=== PATIENT | female | born 1935 | race Caucasian/White ===

== ENCOUNTER 2022-08-22 14:55 | Emergency (ER) | payer OTHER ==
--- OUTSIDE RECORDS SUMMARY | 2022-08-22 14:59 | XMS REPORT | Continuity of Care Document ---
:1935 Author Organization [facility] t Address [address] [place] [address] Care Team Providers Name Role Phone DR MARYURI CHATTERJEE Primary Care Physician Unavailable Lindsay Seaman Attending Clinician Unavailable HARLEY MONTANO Attending Clinician Unavailable ADAM YUAN Attending Clinician Unavailable JOAQUINA GATICA Attending Clinician Unavailable Jamari Fraire Attending Clinician Unavailable Sahil Deleon Attending Clinician Unavailable DAVID HUFF Attending Clinician Unavailable [place] Attending Clinician Unavailable Lindsay Seaman Admitting Clinician Unavailable REYNALDO ELLER Admitting Clinician Unavailable Physician, No Primary or Family Admitting Clinician UnavailDAVID Dyer Admitting Clinician Unavailable Johnny Ruiz PA-C Admitting Clinician Unavailable Payers Payer Name Policy Type Policy Number Effective Date Expiration Date S aurora [id number] 1959 00:00:00 Problems Condition Condition Condition Status Onset Resolution Last Treating Co mments Source Name Details Category Date Date Treatment Clinician Date Acute Acute Diagnosis Active 2020-[address] [facility] Confusion Confusion 0-25 Luke s 00:00: Memoria 00 l (LUF/LI V/SA) Allergies, Adverse Reactions, Alerts Allergy Allergy Status Severity Reaction(s) Onset Inactive Treating Comm ents Source Name Type Date Date Clinician No Known DA Active U 2020-11 [facility] 2[facility]13 [facility] s 00:00: d 00 [facility] No Known DA Active U 2019- [facility] [place] [facility] No Known DA Active U 2019- [facility] 0[facility] [place] [facility] 00:[facility] Sulfa DA Active [place] 2009- [facility] (Sulfona 0-19 [facility] mide 00:00: d Antibiot 00 Medical ics) Center Sulfa DA Active [place] 2009-11 [facility] (Sulfona 0-19 [facility] mide 00:00: d Antibiot 00 Medical ics) Center CELEBREX DA Active U 2001-0 [facility] 5- [place] [facility] d [facility] IVP DYE DA Active U 2001-0 [facility]- [place] [facility]: d [facility] No Known DA Active U 2001-0 [facility] Food 5- [facility] Allergie 00:00: d s 00 Medical Center No Known DA Active U 2001-0 [facility] Other 5- [facility] Allergie 00:00: d s 00 Medical Center VIOXX DA Active U 2001-0 [facility] 5-21 [facility] 00:00: d 00 Medical Center Social History Social Habit Start Date Stop Date Quantity Comments Source Sex Assigned At [birth year] [facility] 00:00:00 00:00:00 Smoking Status Start Date Stop Date Source Tobacco smoking consumption [facility] unknown Former smoker [facility] Medications This patient has no known medications. Immunizations Ordered Immunization Filled Immunization Date Status Commen ts Source Name Name PFIZER COVID-19 MRNA 2021-01-17 Completed Meth odist VACCINATION 00:00:00 Hospital PFIZER COVID-19 MRNA 2020-12-24 Completed Meth odist VACCINATION 00:00:00 Hospital Vital Signs Vital Name Observation Time Observation Value Comments Source Height 2021-09-18 17:38:00 175.26 CM Weight 2021-09-18 17:38:00 61.23 KG BP Systolic 2021-09-18 17:38:00 161 mm[Hg] [facility] (LUF/NICK/SA) BP Diastolic 2021-09-18 17:38:00 91 mm[Hg] [facility] (LUF/NICK/SA) Height 2021-09-18 17:38:00 69 [in_i] [facility] (LUF/NICK/SA) Weight 2021-09-18 17:38:00 135 [lb_av] [facility] (LUF/NICK/SA) BMI (Body Mass Index) 2021-09-18 17:38:00 19.9 kg/m2 [facility] (LUF/NICK/SA) Body Temperature 2021-09-18 17:38:00 98.2 [degF] [facility] (LUF/NICK/SA) Pulse Rate 2021-09-18 17:38:00 97 /min [facility] (F/NICK/SA) Respiratory Rate 2021-09-18 17:38:00 20 /min [facility] (F/NICK/SA) O2% BldC Oximetry 2021-09-18 17:38:00 95 % [facility] (F/NICK/SA) Procedures Procedure Date / Time Performed Performing Clinician [facility] danyell [id number] 2020-08-28 00:00:00 JAIRO [facility] Plan of Care Planned Activity Planned Date Details Comments Source Future Scheduled 2022-08-13 INFLUENZA VACCINE [facility] Test 02:31:10 [code = INFLUENZA VACCINE] Future Scheduled 2022-08-13 HEPATITIS B VACCINES Met [facility] Test 02:31:10 (1 of 3 - 3-dose series) [code = HEPATITIS B VACCINES (1 of 3 - 3-dose series)] Future Scheduled 2022-08-13 SHINGLES VACCINES (1 Met [facility] Test 02:31:10 of 2) [code = SHINGLES VACCINES (1 of 2)] Future Scheduled 2022-08-13 65+ [facility]10 VACCINE (1 - PCV) [code = 65+ PNEUMOCOCCAL VACCINE (1 - PCV)] Future Scheduled 2022-08-13 COVID-19 VACCINE (3 - [facility] Test 02:31:10 Booster for Pfizer series) [code = COVID-19 VACCINE (3 - Booster for Pfizer series)] Encounters Start End Encounter Admission Attending Care Care Encounter Source Date/Time Date/Time Type Type Clinicians Facility Department ID 2020-08-28 Inpatient EM MEET Seaman [id number] [facility] 00:56:00 Lindsay 66 [facility] 2022-02-22 2022-03-02 Inpatient E HARLEY MONTANO TW MED [id number] T 19:34:00 17:20:00 2022-02-22 2022-02-22 Emergency E LISSY, MHNE MHNE 7501 MHNE 15:04:00 17:27:00 ADAM 2022-01-03 2022-02-01 Outpatient GAVI, MHNE MHNE [id number] MHNE 14:10:00 23:59:00 JOAQUINA 2021-11-29 2021-12-28 Outpatient GAVI, MHNE MHNE 9401 MHNE 10:56:00 23:59:00 [facility] 2021-11-21 2021-11-24 Outpatient GAVI, MHNE MHNE 9400 MHNE 09:28:00 18:00:00 [facility] 2021-11-08 2021-11-08 Emergency EM Yee, HCAKW LAUREN [id number] [facility] 17:28:00 19:27:[address] 2021-11-08 2021-11-08 Emergency EM Yee, HCAKW LAUREN [id number] [facility] 17:28:00 19:27:[address] 2021-11-06 2021-11-06 Emergency EM Pancho, Sahil [facility] [id number] [facility] 13:10:00 19:00:[address] [facility] 2021-11-06 2021-11-06 Emergency EM Pancho, Sahil [facility] [id number] [facility] 13:10:00 19:00:[address] [facility] 2021-09-18 2021-09-18 [facility]A 1 [facility] [id number] 17:37:00 18:56:00 MALCOLMON Demetra marc (BRITTA/STACIE V/SA) 2021-09-18 2021-09-18 Inpatient [facility] [id number] 00:00:00 00:00:00 [facility] [id number] Demetra Beard, [address] [id number] [place], (LUF[place] [address] 2021-09-18 2021-09-18 Inpatient [facility] [id number] [facility] St 00:00:00 00:00:00 SHUBHAM FRANKLIN [id number] Demetra N, 1717 [id number] [address] 9cbb58 [address] [place], (LUF[place] [address] 2021-09-18 2021-09-18 Inpatient [facility] [id number] [facility] 00:[facility]:00 00:00:00 SHUBHAM FRANKLIN [id number]- a Demetra N, [address] [id number] [address] f02bb[address] [place], (LUF[place] [address] 2021-01-17 2021-01-17 Outpatient [facility] [id number] [place] 00:00:00 00:00:[address] 2020-12-24 2020-12-24 Outpatient [facility] [id number] [place] 00:00:00 00:00:[address] 2020-10-14 2020-10-14 Outpatient EMILY Ochoa MEET RADI [id number] [facility] 11:15:00 11:15:[address] [facility] Results Test Description Test Time Test Comments Results Result Sour e Comments - XR WRIST 2 VIEWS 2021-11-06 RT 17:39:00 [facility] : 1935 Sex: F FAX: Nikki Perez MD [phone] [place]: St: REG Name: VANESSA VILLEGAS : 1935 Age/S: 86/F [address] Unit #: [id number] Loc: [place] [address] Phys: Nikki Perez MD Acct: [id number] Dis Date: Status: REG ER PHONE #: [phone] Exam Date: 11/06/20211729 FAX #: [phone] Reason: POST REDUCTION EXAMS: CPT CODE: [id number] XR WRIST [address] [place] [address] Location: A1 EXAM: - XR WRIST 2 VIEWS RT INDICATION: POST REDUCTION COMPARISON: Wrist radiograph dated the same day TECHNIQUE: 2 views of the right wrist FINDINGS: Slight interval improvement in alignment of an angulated, comminuted, and displaced fracture of the distal radius status post closed reduction, with some mild persistent angulation and displacement. Unchanged ulnar styloid process fracture. No distinctly new acute fracture. There is soft tissue swelling of the wrist. IMPRESSION: Slight interval improvement in alignment. at 1739 Reported and signed by: Bakari Saucedo MD CC: Nikki Perez MD Technologist: Bonnie Caal Date/Time/By: 11/06/2021 (1790) : By: [email or web address] PAGE 1 Signed Report FAX: Nikki Perez MD [phone] [place]: St: REG Name: VANESSA VILLEGAS : 1935 Age/S: 86/F [address] Unit #: [id number] Loc: [place] [address] Phys: Nikki Perez MD Acct: [id number] Dis Date: Status: REG ER PHONE #: [phone] Exam Date: 11/06/2021 1730 FAX #: [phone] Reason: POST REDUCTION EXAMS: CPT CODE: [id number] XR WRIST [address] [place] [address] <Continued> Orig Print D/T: S: 11/06/2021 (3422) PAGE 2 Signed Report - XR WRIST 2 VIEWS 2021-11-06 RT 17:39:00 [facility] : 1935 Sex: F FAX: Nikki Perez MD [phone] [place]: St: NICK Name: VANESSA VILLEGAS : 1935 Age/S: 86/F [address] Unit #: [id number] Loc: [place] [address] Phys: Nikki Perez MD Acct: [id number] Dis Date: Status: DEP ER PHONE #: [phone] Exam Date: 11/06/20211729 FAX #: [phone] Reason: POST REDUCTION EXAMS: CPT CODE: [id number] XR WRIST [address] [place] [address] Location: A1 EXAM: - XR WRIST 2 VIEWS RT INDICATION: POST REDUCTION COMPARISON: Wrist radiograph dated the same day TECHNIQUE: 2 views of the right wrist FINDINGS: Slight interval improvement in alignment of an angulated, comminuted, and displaced fracture of the distal radius status post closed reduction, with some mild persistent angulation and displacement. Unchanged ulnar styloid process fracture. No distinctly new acute fracture. There is soft tissue swelling of the wrist. IMPRESSION: Slight interval improvement in alignment. at 5390 Reported and signed by: Bakari Saucedo MD CC: Nikki Perez MD Technologist: Bonnie Corbettmdchris Date/Time/By: 11/06/2021 (1621) : By: [email or web address] PAGE 1 Signed Report FAX: Nikki Perez MD [phone] [place]: St: DEP Name: VANESSA VILLEGAS [facility] : 1935 Age/S: 86/F [address] Unit #: [id number] Loc: [place] [address] Phys: Nikki Perez MD Acct: [id number] Dis Date: Status: [facility] ER PHONE #: [phone] Exam Date: 11/06/20211729 FAX #: [phone] Reason: POST REDUCTION EXAMS: CPT CODE: [id number] XR WRIST [address] [place] [address] (Continued) Orig Print D/T: S: 11/06/2021 (8909) PAGE 2 Signed Report - XR HIP BI 2021-11-06 W/PELVIS 15:33:00 [facility] : 1935 Sex: F FAX: Nikki Perez MD [phone] [place]: St: PRE FAX: Grey Mandel DO Name: VANESSA VILLEGAS [facility] : 1935 Age/S: 86/F [address] Unit #: [id number] Loc: [place] [address] Phys: MinisterioGrey R2 Acct: [id number] Dis Date: Status: PRE ER PHONE #: [phone] Exam Date: 11/06/2021 1459 FAX #: [phone] Reason: fall/head stiek/ neck pain/pain pain/hip pain/ EXAMS: CPT CODE: [id number] XR HIP BI W/PELVIS 87900 EXAM: - XR HIP BI W/PELVIS HISTORY: fall/head/neck pain/pain pain/hip pain/ knee pain COMPARISON: None available time of interpretation. FINDINGS: AP and frog-leg lateral views of both hips and single view of the pelvis are provided. Intact right hip hemiarthroplasty. No significant degenerative changes of the left hip joint. No acute fracture. IMPRESSION: No acute findings. at 1533 Reported and signed by: oTny Ashraf MD CC: Nikki Perez MD; Grey Mandel DO Technologist: Bonnie Caal Date/Time/By: 11/06/2021 (1373) : By: [email or web address] PAGE 1 Signed Report FAX: Nikki Perez MD [phone] [place]: St: PRE FAX: Grey Mandel DO Name: VANESSA VILLEGAS [facility] : 1935 Age/S: 86/F [address] Unit #: [id number] Loc: [place] [address] Phys: Grey Mandel Acct: [id number] Dis Date: Status: PRE ER PHONE #: [phone] Exam Date: 11/06/2021 1459 FAX #: [phone] Reason: fall/head stiek/ neck pain/pain pain/hip pain/ EXAMS: CPT CODE: [id number] XR HIP BI W/PELVIS 24385 <Continued> Orig Print D/T: S: 11/06/2021 (4944) PAGE 2 Signed Report - XR HIP BI 2021-11-06 W/PELVIS 15:33:00 [facility]AS : 1935 Sex: F FAX: Nikki Perez MD [phone] [place]: [facility]: [facility] FAX: Grey Mandel DO Name: VANESSA VILLEGAS : 1935 Age/S: 86/F [address] Unit #: [id number] Loc: [place] [address] Phys: Grey Mandel DO Acct: [id number] Dis Date: Status: DEP ER PHONE #: [phone] Exam Date: 11/06/2021 1454 FAX #: [phone] Reason: fall/head stiek/ neck pain/pain pain/hip pain/ EXAMS: CPT CODE: [id number] XR HIP BI W/PELVIS 54176 EXAM: - XR HIP BI W/PELVIS HISTORY: fall/head/neck pain/pain pain/hip pain/ knee pain COMPARISON: None available time of interpretation. FINDINGS: AP and frog-leg lateral views of both hips and single view of the pelvis are provided. Intact right hip hemiarthroplasty. No significant degenerative changes of the left hip joint. No acute fracture. IMPRESSION: No acute findings. at 1533 Reported and signed by: Tony Ashraf MD CC: Nikki Perez MD; Grey Mandel DO Technologist: Bonnie Caal Date/Time/By: 11/06/2021 (1533) : By: [email or web address] PAGE 1 Signed Report FAX: Nikki Perez MD [phone] [place]: [facility]: [facility] FAX: Grey Mandel DO Name: VANESSA VILLEGAS : 1935 Age/S: 86/F [address] Unit #: [id number] Loc: [place] [address] Phys: Grey Mandel DO R2 Acct: [id number] Dis Date: Status: DEP ER PHONE #: [phone] Exam Date: 11/06/2021 1459 FAX #: [phone] Reason: fall/head stiek/ neck pain/pain pain/hip pain/ EXAMS: CPT CODE: [id number] XR HIP BI W/PELVIS 26630 (Continued) Orig Print D/T: S: 11/06/2021 (1536) PAGE 2 Signed Report - XR HAND 3 + V RT 2021-11-06 15:31:00 [facility] : 1935 Sex: F FAX: Nikki Perez MD [phone] [place]: St: PRE FAX: Grey Mandel DO Name: VANESSA VILLEGAS : 1935 Age/S: 86/F [address] Unit #: [id number] Loc: [place] [address] Phys: Grey Mandel Acct: [id number] Dis Date: Status: PRE ER PHONE #: [phone] Exam Date: 11/06/20211458 FAX #: [phone] Reason: fall/head stiek/ neck pain/pain pain/hip pain/ EXAMS: CPT CODE: [id number] XR HAND 3 + V RT [address]397 EXAM: - XR WRIST 3 + V RT, - XR FOREARM 2 VIEWS RT, - XR HAND 3 + V RT HISTORY: fall/head/neck pain/pain pain/hip pain/ knee pain COMPARISON: None available time of interpretation. FINDINGS: Frontal, oblique, and lateral views of the right wrist and hand are provided. 2 views of the right forearm. Comminuted, intra-articular displaced fracture of the distal radius. Soft tissue swelling surrounds the fracture site. IMPRESSION: Distal radial fracture as above. at 1531 Reported and signed by: Tony Ashraf MD CC: Nikki Perez MD; [facility] Technologist: Bonnie Zamora Trnscrd Date/Time/By: 11/06/2021 (1531) : By: [email or web address] PAGE 1 Signed Report FAX: Nikki Perez MD [phone] [place]: St: PRE FAX: Grey Mandel DO Name: [place]SA [place]LEGASwood : 1935 Age/S: 86/F [address] Unit #: [id number] Loc: [place] [address] Phys: Grey Mandel Acct: [id number] Dis Date: Status: PRE ER PHONE #: [phone] Exam Date: 11/06/2021 145 FAX #: [phone] Reason: fall/head stiek/ neck pain/pain pain/hip pain/ EXAMS: CPT CODE: [id number] XR HAND 3 + V RT 279[address] <Continued> Orig Print D/T: S: 11/06/2021 (2521) PAGE 2 Signed Report - XR FOREARM 2 2021-11-06 VIEWS RT 15:31:00 [facility] : 1935 Sex: F FAX: Nikki Perez MD [phone] [place]: St: PRE FAX: Grey Mandel DO Name: VANESSA VILLEGAS [facility] : 1935 Age/S: 86/F [address] Unit #: [id number] Loc: [place] [address] Phys: Grey Mandel DO R2 Acct: [id number] Dis Date: Status: PRE ER PHONE #: [phone] Exam Date: 11/06/2021 1459 FAX #: [phone] Reason: fall/head stiek/ neck pain/pain pain/hip pain/ EXAMS: CPT CODE: [id number] XR FOREARM [address] [place] [address] EXAM: - XR WRIST 3 + V RT, - XR FOREARM 2 VIEWS RT, - XR HAND 3 + V RT HISTORY: fall/head/neck pain/pain pain/hip pain/ knee pain COMPARISON: None available time of interpretation. FINDINGS: Frontal, oblique, and lateral views of the right wrist and hand are provided. 2 views of the right forearm. Comminuted, intra-articular displaced fracture of the distal radius. Soft tissue swelling surrounds the fracture site. IMPRESSION: Distal radial fracture as above. at 1531 Reported and signed by: Tony Ashraf MD CC: Nikki Perez MD; Grey Mandel DO Technologist: Bonnie Zamora Trnmdrd Date/Time/By: 11/06/2021 (1530) : By: [email or web address] PAGE 1 Signed Report FAX: Nikki Perez MD [phone] [place]: St: PRE FAX: Grey Mandel DO Name: VANESSA VILLEGAS : 1935 Age/S: 86/F [address] Unit #: [id number] Loc: [place] [address] Phys: Grey Mandel DO R2 Acct: [id number] Dis Date: Status: PRE ER PHONE #: [phone] Exam Date: 11/06/2021 1459 FAX #: [phone] Reason: fall/head stiek/ neck pain/pain pain/hip pain/ EXAMS: CPT CODE: [id number] XR [place] [address] [place] [address] <Continued> Orig Print D/T: S: 11/06/2021 (3043) PAGE 2 Signed Report - XR WRIST 3 + V 2021-11-06 RT 15:31:00 [facility] : 1935 Sex: F FAX: Nikki Perez MD [phone] [place]: St: PRE FAX: Grey Mandel DO Name: VANESSA VILLEGAS [facility] : 1935 Age/S: 86/F [address] Unit #: [id number] Loc: [place] [address] Phys: Grey Mandel DO R2 Acct: [id number] Dis Date: Status: PRE ER PHONE #: [phone] Exam Date: 11/06/2021 1459 FAX #: [phone] Reason: fall/head stiek/ neck pain/pain pain/hip pain/ EXAMS: CPT CODE: [id number] XR WRIST 3 + V RT [address] EXAM: - XR WRIST 3 + V RT, - XR FOREARM 2 VIEWS RT, - XR HAND 3 + V RT HISTORY: fall/head/neck pain/pain pain/hip pain/ knee pain COMPARISON: None available time of interpretation. FINDINGS: Frontal, oblique, and lateral views of the right wrist and hand are provided. 2 views of the right forearm. Comminuted, intra-articular displaced fracture of the distal radius. Soft tissue swelling surrounds the fracture site. IMPRESSION: Distal radial fracture as above. at 1531 Reported and signed by: Tony Ashraf MD CC: Nikki Perez MD; Grey Mandel DO Technologist: Bonnie Zamora [facility] Date/Time/By: 11/06/2021 (0570) : By: [email or web address] PAGE 1 Signed Report FAX: Nikki Perez MD [phone] [place]: [facility]: PRE FAX: Grey Mandel DO Name: VANESSA VILLEGAS [facility] : 1935 Age/S: 86/F [address] Unit #: [id number] Loc: [place] [address] Phys: Grey Mandel DO R2 Acct: [id number] Dis Date: Status: PRE ER PHONE #: [phone] Exam Date: 11/06/2021 1459 FAX #: [phone] Reason: fall/head stiek/ neck pain/pain pain/hip pain/ EXAMS: CPT CODE: [id number] XR WRIST 3 + V RT [address] <Continued> Orig Print D/T: S: 11/06/2021 (7256) PAGE 2 Signed Report - XR HAND 3 + V RT 2021-11-06 15:31:00 [facility] : 1935 Sex: F FAX: Nikki Perez MD [phone] [place]: [facility]: DEP FAX: Grey Mandel DO Name: VANESSA VILLEGAS : 1935 Age/S: 86/F [address] Unit #: [id number] Loc: [place] [address] Phys: MinisterioGrey Meri Acct: [id number] Dis Date: Status: DEP ER PHONE #: [phone] Exam Date: 11/06/2021 3552 FAX #: [phone] Reason: fall/head stiek/ neck pain/pain pain/hip pain/ EXAMS: CPT CODE: [id number] XR HAND 3 + V RT 00733 EXAM: - XR WRIST 3 + V RT, - XR FOREARM 2 VIEWS RT, - XR HAND 3 + V RT HISTORY: fall/head/neck pain/pain pain/hip pain/ knee pain COMPARISON: None available time of interpretation. FINDINGS: Frontal, oblique, and lateral views of the right wrist and hand are provided. 2 views of the right forearm. Comminuted, intra-articular displaced fracture of the distal radius. Soft tissue swelling surrounds the fracture site. IMPRESSION: Distal radial fracture as above. at 1531 Reported and signed by: Tony Ashraf MD CC: Nikki Perez MD; Grey Mandel DO Technologist: Bonnie Easleyrd Date/Time/By: 11/06/2021 (1531) : By: [email or web address] PAGE 1 Signed Report FAX: Nikki Perez MD [phone] [place]: St: [facility] FAX: Grey Mandel DO Name: VANESSA VILLEGAS : 1935 Age/S: 86/F [address] Unit #: [id number] Loc: [place] [address] Phys: Grey Mandel Acct: [id number] Dis Date: Status: DEP ER PHONE #: [phone] Exam Date: 11/06/2021 145 FAX #: [phone] Reason: fall/head stiek/ neck pain/pain pain/hip pain/ EXAMS: CPT CODE: [id number] XR HAND 3 + [place] [address] (Continued) Orig Print D/T: S: 11/06/2021 (7775) PAGE 2 Signed Report - XR WRIST 3 + V 2021-11-06 RT 15:31:00 [facility] : 1935 Sex: F FAX: Nikki Perez MD [phone] [place]: [facility]: [facility] FAX: Grey Mandel DO Name: VANESSA VILLEGAS : 1935 Age/S: 86/F [address] Unit #: [id number] Loc: [place] [address] Phys: Grey Mandel Acct: [id number] Dis Date: Status: [facility] ER PHONE #: [phone] Exam Date: 11/06/20211458 FAX #: [phone] Reason: fall/head stiek/ neck pain/pain pain/hip pain/ EXAMS: CPT CODE: [id number] XR WRIST 3 + V RT [address]12 EXAM: - XR WRIST 3 + V RT, - XR FOREARM 2 VIEWS RT, - XR HAND 3 + V RT HISTORY: fall/head/neck pain/pain pain/hip pain/ knee pain COMPARISON: None available time of interpretation. FINDINGS: Frontal, oblique, and lateral views of the right wrist and hand are provided. 2 views of the right forearm. Comminuted, intra-articular displaced fracture of the distal radius. Soft tissue swelling surrounds the fracture site. IMPRESSION: Distal radial fracture as above. at 1531 Reported and signed by: Tony Ashraf MD CC: Nikki Perez MD; Grey Mandel DO Technologist: Bonnie Zamora Trnmdrd Date/Time/By: 11/06/2021 (1531) : By: [email or web address] PAGE 1 Signed Report FAX: Nikki Perez MD [phone] [place]: St: [facility] FAX: MinistreioGrey Name: VANESSA VILLEGAS : 1935 Age/S: 86/F [address] Unit #: [id number] Loc: [place] [address] Phys: MinisterioGrey DO Jerez Acct: [id number] Dis Date: Status: [facility] ER PHONE #: [phone] Exam Date: 11/06/2021 1456 FAX #: [phone] Reason: fall/head stiek/ neck pain/pain pain/hip pain/ EXAMS: CPT CODE: [id number] XR WRIST 3 + V RT 23163 (Continued) Orig Print D/T: S: 11/06/2021 (2713) PAGE 2 Signed Report - XR FOREARM 2 2021-11-06 VIEWS RT 15:31:00 [facility] : 1935 Sex: F FAX: Nikki Perez MD [phone] [place]: St: [facility] FAX: Grey Mandel DO Name: VANESSA VILLEGAS [facility] : 1935 Age/S: 86/F [address] Unit #: [id number] Loc: [place] [address] Phys: Grey Mandel DO Acct: [id number] Dis Date: Status: DEP ER PHONE #: [phone] Exam Date: 11/06/2021 1790 FAX #: [phone] Reason: fall/head stiek/ neck pain/pain pain/hip pain/ EXAMS: CPT CODE: [id number] XR [place]EARM [address] [place] [id number] EXAM: - XR WRIST 3 + V RT, - XR FOREARM 2 VIEWS RT, - XR HAND 3 + V RT HISTORY: fall/head/neck pain/pain pain/hip pain/ knee pain COMPARISON: None available time of interpretation. FINDINGS: Frontal, oblique, and lateral views of the right wrist and hand are provided. 2 views of the right forearm. Comminuted, intra-articular displaced fracture of the distal radius. Soft tissue swelling surrounds the fracture site. IMPRESSION: Distal radial fracture as above. at 1531 Reported and signed by: Tony Ashraf MD CC: Nikik Perez MD; Grey Mandel DO Technologist: Bonnie Corbettmdchris Date/Time/By: 11/06/2021 (1531) : By: [email or web address] PAGE 1 Signed Report FAX: Nikki Perez MD [phone] [place]: St: [facility] FAX: Grey Mandel DO Name: VANESSA VILLEGAS [facility] : 1935 Age/S: 86/F [address] Unit #: [id number] Loc: [place] [address] Phys: Grey Mandel Acct: [id number] Dis Date: Status: DEP ER PHONE #: [phone] Exam Date: 11/06/2021 4385 FAX #: [phone] Reason: fall/head stiek/ neck pain/pain pain/hip pain/ EXAMS: CPT CODE: [id number] XR [place] [address] [place] [address] (Continued) Orig Print D/T: S: 11/06/2021 (1535) PAGE 2 Signed Report - XR KNEE 3 V RT 2021-11-06 15:25:00 [facility] : 1935 Sex: F FAX: Nikki Perez MD [phone] [place]: St: PRE FAX: Grey Mandel DO Name: VANESSA VILLEGAS [facility] [place] : 1935 Age/S: 86/F [address] Unit #: [id number] Loc: [place] [address] Phys: Grey Mandel DO R2 Acct: [id number] Dis Date: Status: PRE ER PHONE #: [phone] Exam Date: 11/06/2021 1459 FAX #: [phone] Reason: fall/head stiek/ neck pain/pain pain/hip pain/ EXAMS: CPT CODE: [id number] XR KNEE 3 [place] [address] EXAMINATION(S): 3 views right knee INDICATION: Right knee pain COMPARISON: None LOCATION: S17 FINDINGS: Tricompartmental degenerative changes, severe in the patellofemoral compartment and otherwise moderate. No fracture or dislocation identified. Possible joint effusion. IMPRESSION: No acute osseous abnormality identified. at 1525 Reported and signed by: Jaylon Angulo MD CC: Nikki Perez MD; Grey Mandel DO Technologist: Bonnie Caal Date/Time/By: 11/06/2021 (1525) : By: [email or web address] PAGE 1 Signed Report FAX: Nikki Perez MD [phone] [place]: St: PRE FAX: Grey Mandel DO Name: VANESSA VILLEGAS : 1935 Age/S: 86/F [address] Unit #: [id number] Loc: [place] [address] Phys: Grey Mandel Acct: [id number] Dis Date: Status: PRE ER PHONE #: [phone] Exam Date: 11/06/2021 1459 FAX #: [phone] Reason: fall/head stiek/ neck pain/pain pain/hip pain/ EXAMS: CPT CODE: [id number] XR KNEE 3 V RT 36748 <Continued> Orig Print D/T: S: 11/06/2021 (3527) PAGE 2 Signed Report - XR KNEE 3 V RT 2021-11-06 15:25:00 [facility] : 1935 Sex: F FAX: Nikki Perez MD [phone] [place]: [facility]: [facility] FAX: Grey Mandel DO Name: VANESSA VILLEGAS : 1935 Age/S: 86/F [address] Unit #: [id number] Loc: [place] [address] Phys: Grey Mandel Acct: [id number] Dis Date: Status: [facility] ER PHONE #: [phone] Exam Date: 11/06/2021 1457 FAX #: [phone] Reason: fall/head stiek/ neck pain/pain pain/hip pain/ EXAMS: CPT CODE: [id number] XR KNEE 3 [place] [address] EXAMINATION(S): 3 views right knee INDICATION: Right knee pain COMPARISON: None LOCATION: S17 FINDINGS: Tricompartmental degenerative changes, severe in the patellofemoral compartment and otherwise moderate. No fracture or dislocation identified. Possible joint effusion. IMPRESSION: No acute osseous abnormality identified. at 1525 Reported and signed by: Jaylon Angulo MD CC: Nikki Perez MD; Grey Songodfrey Technologist: Bonnie Zamora Trnscrd Date/Time/By: 11/06/2021 (1525) : By: [email or web address] PAGE 1 Signed Report FAX: Nikki Perez MD [phone] [place]: [facility]: [facility] FAX: Grey Mandel DO Name: VANESSA VILLEGAS : 1935 Age/S: 86/F [address] Unit #: [id number] Loc: [place] [address] Phys: Grey Mandel Acct: [id number] Dis Date: Status: [facility] ER PHONE #: [phone] Exam Date: 11/06/2021 1459 FAX #: [phone] Reason: fall/head stiek/ neck pain/pain pain/hip pain/ EXAMS: CPT CODE: [id number] XR KNEE 3 V RT 88717 (Continued) Orig Print D/T: S: 11/06/2021 (1526) PAGE 2 Signed Report - CT T-SPINE W/O 2021-11-06 CONTRAST 14:53:00 [facility] : 1935 Sex: F FAX: Nikki Perez MD [phone] [place]: St: PRE FAX: Grey Mandel DO Name: VANESSA VILLEGAS [facility] : 1935 Age/S: 86/F [address] Unit: [id number] Loc: [place] [address] Phys: Grey Mandel DO R2 Acct: [id number] Dis Date: Status: PRE ER PHONE #: [phone] Exam Date: 11/06/2021 1435 FAX #: [phone] Reason: fall/head stiek/ neck pain/pain pain/hip pain/ EXAMS: CPT CODE: [id number] CT T-SPINE W/O CONTRAST 24691 Exam: CT of the thoracic and lumbar spine without contrast Location: H24 HISTORY: , fall/head / neck pain/pain pain/hip pain/ knee pain, COMPARISON: None available TECHNIQUE: Axial images of the thoracic and lumbar spine were obtained without contrast. Images were reformatted to create coronal and sagittal reconstructions . One or more of the following dose reduction techniques were used: Automated exposure control, adjustment of the mA and/or kV according to patient size, and/or utilization of iterative reconstruction technique. DLP: 511 mGy-cm. FINDINGS: Thoracic spine There is diffuse osteopenia. There is exaggeration of normal thoracic kyphosis. There is no acute fracture or dislocation. Vertebral body heights are still maintained. There is bridging anterior aspect stenosis throughout the mid thoracic spine as well as partial acquired fusion of the disc spaces from T6-T7 through T10-T11. There is atrophy of paraspinal muscles. Emphysematous changes are noted in the lungs. On axial images, there is no significant central canal stenosis. There is hypertrophy of facet joints contributing to foraminal narrowing particularly from T6-T7 through T11-T12. FINDINGS: Lumbar spine There is diffuse osteopenia. No displaced fracture or dislocation is seen. Vertebral body heights are maintained. Vacuum disc phenomena are present from L2-L3 through L5-S1 with associated disc space narrowing. 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 There is atrophy of paraspinal muscles. Diverticula are present within the sigmoid colon. Visualized intra-abdominal contents are otherwise within normal limits. On axial images, there is both spondylosis and facet arthrosis contributing to central canal stenosis at the L2-L3 through L5-S1 levels, most pronounced at L3-L4 and L4-L5. There is also foraminal narrowing from T12-L1 through L5-S1. IMPRESSION: PAGE 1 Signed Report (CONTINUED) FAX: Nikki Perez MD [phone] [place]: St: PRE FAX: Grey Mandel DO Name: VANESSA VILLEGAS [facility] : 1935 Age/S: 86/F [address] Unit: [id number] Loc: [place] [address] Phys: Grey Mandel DO R2 Acct: [id number] Dis Date: Status: PRE ER PHONE #: [phone] Exam Date: 11/06/2021 1435 FAX #: [phone] Reason: fall/head stiek/ neck pain/pain pain/hip pain/ EXAMS: CPT CODE: [id number] CT T-SPINE W/O CONTRAST 63689 <Continued> 1. Diffuse osteopenia. No displaced fracture or dislocation. 2. Exaggeration of normal thoracic kyphosis. Vertebral body heights are maintained. 3. 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 Foraminal narrowing is present from T6-T7 through L5-S1. at 3765 Reported and signed by: Oscar Smith MD CC: Nikki Perez MD; Grey Mandel DO Technologist: Sandra Patino Trnscrd Dt/Tm: 11/06/2021 (3243) [email or web address] Orig Print D/T: S: 11/06/2021 (8549 PAGE 2 Signed Report - CT L-SPINE W/O 2021-11-06 CONTRAST 14:53:00 [facility] : 1935 Sex: F FAX: Nikki Perez MD [phone] [place]: St: PRE FAX: Grey Mandel DO Name: VANESSA VILLEGAS : 1935 Age/S: 86/F [address] Unit: [id number] Loc: [place] [address] Phys: Grey Mandel DO R2 Acct: [id number] Dis Date: Status: PRE ER PHONE #: [phone] Exam Date: 11/06/2021 1435 FAX #: [phone] Reason: fall/head stiek/ neck pain/pain pain/hip pain/ EXAMS: CPT CODE: [id number] CT L-SPINE W/O CONTRAST 87068 Exam: CT of the thoracic and lumbar spine without contrast Location: H24 HISTORY: , fall/head / neck pain/pain pain/hip pain/ knee pain, COMPARISON: None available TECHNIQUE: Axial images of the thoracic and lumbar spine were obtained without contrast. Images were reformatted to create coronal and sagittal reconstructions . One or more of the following dose reduction techniques were used: Automated exposure control, adjustment of the mA and/or kV according to patient size, and/or utilization of iterative reconstruction technique. DLP: 511 mGy-cm. FINDINGS: Thoracic spine There is diffuse osteopenia. There is exaggeration of normal thoracic kyphosis. There is no acute fracture or dislocation. Vertebral body heights are still maintained. There is bridging anterior aspect stenosis throughout the mid thoracic spine as well as partial acquired fusion of the disc spaces from T6-T7 through T10-T11. There is atrophy of paraspinal muscles. Emphysematous changes are noted in the lungs. On axial images, there is no significant central canal stenosis. There is hypertrophy of facet joints contributing to foraminal narrowing particularly from T6-T7 through T11-T12. FINDINGS: Lumbar spine There is diffuse osteopenia. No displaced fracture or dislocation is seen. Vertebral body heights are maintained. Vacuum disc phenomena are present from L2-L3 through L5-S1 with associated disc space narrowing. 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 There is atrophy of paraspinal muscles. Diverticula are present within the sigmoid colon. Visualized intra-abdominal contents are otherwise within normal limits. On axial images, there is both spondylosis and facet arthrosis contributing to central canal stenosis at the L2-L3 through L5-S1 levels, most pronounced at L3-L4 and L4-L5. There is also foraminal narrowing from T12-L1 through L5-S1. IMPRESSION: PAGE 1 Signed Report (CONTINUED) FAX: Nikki Perez MD [phone] [place]: St: PRE FAX: Grey Mandel DO Name: VANESSA VILLEGAS : 1935 Age/S: 86/F [address] Unit: [id number] Loc: [place] [address] Phys: Grey Mandel DO R2 Acct: [id number] Dis Date: Status: PRE ER PHONE #: [phone] Exam Date: 11/06/2021 1435 FAX #: [phone] Reason: fall/head stiek/ neck pain/pain pain/hip pain/ EXAMS: CPT CODE: [id number] CT L-SPINE W/O CONTRAST 73372 <Continued> 1. Diffuse osteopenia. No displaced fracture or dislocation. 2. Exaggeration of normal thoracic kyphosis. Vertebral body heights are maintained. 3. 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 Foraminal narrowing is present from T6-T7 through L5-S1. at 2060 Reported and signed by: Oscar Smith MD CC: Nikki Perez MD; Grey Mandel DO Technologist: Sandra Patino Trnscrd Dt/Tm: 11/06/2021 (3637) [email or web address] Orig Print D/T: S: 11/06/2021 (6140 PAGE 2 Signed Report - CT T-SPINE W/O 2021-11-06 CONTRAST 14:53:00 [facility] : 1935 Sex: F FAX: Nikki Perez MD [phone] [place]: [facility]: [facility] FAX: Grey Mandel DO Name: VANESSA VILLEGAS [facility] : 1935 Age/S: 86/F [address] Unit: [id number] Loc: [place] [address] Phys: Grey Mandel DO R2 Acct: [id number] Dis Date: Status: [facility] ER PHONE #: [phone] Exam Date: 11/06/2021 [facility] FAX #: [phone] Reason: fall/head stiek/ neck pain/pain pain/hip pain/ EXAMS: CPT CODE: [id number] CT T-SPINE W/O CONTRAST 04010 Exam: CT of the thoracic and lumbar spine without contrast Location: H24 HISTORY: , fall/head / neck pain/pain pain/hip pain/ knee pain, COMPARISON: None available TECHNIQUE: Axial images of the thoracic and lumbar spine were obtained without contrast. Images were reformatted to create coronal and sagittal reconstructions . One or more of the following dose reduction techniques were used: Automated exposure control, adjustment of the mA and/or kV according to patient size, and/or utilization of iterative reconstruction technique. DLP: 511 mGy-cm. FINDINGS: Thoracic spine There is diffuse osteopenia. There is exaggeration of normal thoracic kyphosis. There is no acute fracture or dislocation. Vertebral body heights are still maintained. There is bridging anterior aspect stenosis throughout the mid thoracic spine as well as partial acquired fusion of the disc spaces from T6-T7 through T10-T11. There is atrophy of paraspinal muscles. Emphysematous changes are noted in the lungs. On axial images, there is no significant central canal stenosis. There is hypertrophy of facet joints contributing to foraminal narrowing particularly from T6-T7 through T11-T12. FINDINGS: Lumbar spine There is diffuse osteopenia. No displaced fracture or dislocation is seen. Vertebral body heights are maintained. Vacuum disc phenomena are present from L2-L3 through L5-S1 with associated disc space narrowing. 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 There is atrophy of paraspinal muscles. Diverticula are present within the sigmoid colon. Visualized intra-abdominal contents are otherwise within normal limits. On axial images, there is both spondylosis and facet arthrosis contributing to central canal stenosis at the L2-L3 through L5-S1 levels, most pronounced at L3-L4 and L4-L5. There is also foraminal narrowing from T12-L1 through L5-S1. IMPRESSION: PAGE 1 Signed Report (CONTINUED) FAX: Nikki Perez MD [phone] [place]: [facility]: [facility] FAX: Grey Mandel DO Name: VANESSA VILLEGAS : 1935 Age/S: 86/F [address] Unit: [id number] Loc: [place] [address] Phys: Grey Mandel DO R2 Acct: [id number] Dis Date: Status: [facility] ER PHONE #: [phone] Exam Date: 11/06/2021 1435 FAX #: [phone] Reason: fall/head stiek/ neck pain/pain pain/hip pain/ EXAMS: CPT CODE: [id number] CT T-SPINE W/O CONTRAST 29631 (Continued) 1. Diffuse osteopenia. No displaced fracture or dislocation. 2. Exaggeration of normal thoracic kyphosis. Vertebral body heights are maintained. 3. 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 Foraminal narrowing is present from T6-T7 through L5-S1. at 1453 Reported and signed by: Oscar Smith MD CC: Nikki Perez MD; Grey Mandel DO Technologist: Sandra Patino Trnscrd Dt/Tm: 11/06/2021 (6171) [email or web address] Orig Print D/T: S: 11/06/2021 (0946 PAGE 2 Signed Report - CT L-SPINE W/O 2021-11-06 CONTRAST 14:53:00 [facility] : 1935 Sex: F FAX: Nikki Perez MD [phone] [place]: St: [facility] FAX: Grey Mandel DO Name: VANESSA VILLEGAS [facility] : 1935 Age/S: 86/F [address] Unit: [id number] Loc: [place] [address] Phys: Grey Mandel Acct: [id number] Dis Date: Status: DEP ER PHONE #: [phone] Exam Date: 11/06/2021 1435 FAX #: [phone] Reason: fall/head stiek/ neck pain/pain pain/hip pain/ EXAMS: CPT CODE: [id number] CT L-SPINE W/O CONTRAST 26707 Exam: CT of the thoracic and lumbar spine without contrast Location: H24 HISTORY: , fall/head / neck pain/pain pain/hip pain/ knee pain, COMPARISON: None available TECHNIQUE: Axial images of the thoracic and lumbar spine were obtained without contrast. Images were reformatted to create coronal and sagittal reconstructions . One or more of the following dose reduction techniques were used: Automated exposure control, adjustment of the mA and/or kV according to patient size, and/or utilization of iterative reconstruction technique. DLP: 511 mGy-cm. FINDINGS: Thoracic spine There is diffuse osteopenia. There is exaggeration of normal thoracic kyphosis. There is no acute fracture or dislocation. Vertebral body heights are still maintained. There is bridging anterior aspect stenosis throughout the mid thoracic spine as well as partial acquired fusion of the disc spaces from T6-T7 through T10-T11. There is atrophy of paraspinal muscles. Emphysematous changes are noted in the lungs. On axial images, there is no significant central canal stenosis. There is hypertrophy of facet joints contributing to foraminal narrowing particularly from T6-T7 through T11-T12. FINDINGS: Lumbar spine There is diffuse osteopenia. No displaced fracture or dislocation is seen. Vertebral body heights are maintained. Vacuum disc phenomena are present from L2-L3 through L5-S1 with associated disc space narrowing. 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 There is atrophy of paraspinal muscles. Diverticula are present within the sigmoid colon. Visualized intra-abdominal contents are otherwise within normal limits. On axial images, there is both spondylosis and facet arthrosis contributing to central canal stenosis at the L2-L3 through L5-S1 levels, most pronounced at L3-L4 and L4-L5. There is also foraminal narrowing from T12-L1 through L5-S1. IMPRESSION: PAGE 1 Signed Report (CONTINUED) FAX: Nikki Perez MD [phone] [place]: St: DEP FAX: Grey Mandel DO Name: [facility] 1935 Age/S: 86/F [address] Unit: [id number] Loc: [place] [address] Phys: Grey Mandel DO Meri Acct: [id number] Dis Date: Status: DEP ER PHONE #: [phone] Exam Date: 11/06/20215 FAX #: [phone] Reason: fall/head stiek/ neck pain/pain pain/hip pain/ EXAMS: CPT CODE: [id number] CT L-SPINE W/O CONTRAST 22341 (Continued) 1. Diffuse osteopenia. No displaced fracture or dislocation. 2. Exaggeration of normal thoracic kyphosis. Vertebral body heights are maintained. 3. 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 Foraminal narrowing is present from T6-T7 through L5-S1. at 2547 Reported and signed by: Oscar Smith MD CC: Nikki Perez MD; Grey Mandel DO Technologist: Sandra Patino Trnscrd Dt/Tm: 11/06/2021 (9685) [email or web address] Orig Print D/T: S: 11/06/2021 (5942 PAGE 2 Signed Report - CT C-SPINE W/O 2021-11-06 [facility] 14:46:00 [facility] : 1935 Sex: F FAX: Nikki Perez MD [phone] [place]: St: PRE FAX: Grey Mandel DO Name: VANESSA VILLEGAS [facility] : 1935 Age/S: 86/F [address] Unit: [id number] Loc: [place] [address] Phys: Grey Mandel DO R2 Acct: [id number] Dis Date: Status: PRE ER PHONE #: [phone] Exam Date: 11/06/2021 1435 FAX #: [phone] Reason: fall/head stiek/ neck pain/pain pain/hip pain/ EXAMS: CPT CODE: [id number] CT C-SPINE W/O CONT 31679 EXAM: 1. CT Head without contrast 2. CT Cervical spine without contrast Location: H24 HISTORY: Fall, head and neck pain COMPARISON: None available. TECHNIQUE: Multiple transaxial images of the head and cervical spine were obtained without intravenous contrast. Images were reformatted to create coronal and sagittal reconstructions. One or more of the following dose reduction techniques were used: Automated exposure control, adjustment of the mA and/or kV according to patient size, and/or utilization of iterative reconstruction technique. DLP: 1443 mGy-cm. FINDINGS: Head There is no acute intracranial hemorrhage. There is no mass, mass effect, midline shift or extra-axial fluid collection. Brain parenchymal volume is diffusely decreased which is within normal limits given patient's age. Enlargement of the right lateral ventricles commensurate with degree of central atrophy. Fairchild-white differentiation is maintained. There is no evidence for acute major vessel infarct. There are areas of decreased attenuation within subcortical and deep white matter which are nonspecific. Paranasal sinuses, mastoid air cells and visualized orbital contents are within normal limits. Bones and calvaria and skull base are intact. Note is made of bilateral lens replacements. Intraorbital contents are within normal limits. FINDINGS: Cervical Spine Postoperative changes include decompression laminectomies from C3 PAGE 1 Signed Report (CONTINUED) FAX: Nikki Perez MD [phone] [place]: St: PRE FAX: MinisterioGrey DO Name: VAN[facility]ILLEGAS [facility] : 1935 Age/S: 86/F [address] Unit: [id number] Loc: [place] [address] Phys: HuygodfreyGrey DO R2 Acct: [id number] Dis Date: Status: PRE ER PHONE #: [phone] Exam Date: 11/06/2021 1435 FAX #: [phone] Reason: fall/head stiek/ neck pain/pain pain/hip pain/ EXAMS: CPT CODE: [id number] CT C-SPINE W/O CONT 05692 <Continued> through C6. There is acquired, osseous fusion of the facet joints. There is no acute fracture or dislocation. There is diffuse osteopenia. Vertebral body heights are maintained. There is fusion of the disc spaces from C3-C4 through C5-C6. There is mild atrophy of paraspinal muscles. Nodules are present within the thyroid gland. Largest on the right measures up to 1.1 cm. Consider further characterization with thyroid ultrasound. Occiput-C1: Intact. C1-C2: Narrowing of the predental space and subchondral sclerosis. Atlantoaxial joint is maintained. Mild central canal stenosis. Hypertrophy of the right lateral mass contributing to moderate right foraminal narrowing. C2-C3: Disc osteophyte complex measuring up to 3 mm. Fusion of the fused facet joints. Mild foraminal narrowing. Mild central canal stenosis. C3-C4 through C5-C6: Decompression laminectomies are noted. There is persistent spondylotic ridging and hypertrophy of the fused facet joints contributing to moderate foraminal narrowing. C6-C7: Partial decompression. Moderate to severe bilateral facet arthropathy and foraminal narrowing. No canal stenosis. C7-T1: Mild bilateral facet arthropathy and foraminal narrowing. No central canal stenosis. Pleural and parenchymal scarring is seen at bilateral lung apices. IMPRESSION: 1. No acute intracranial abnormality. No acute hemorrhage, mass lesion or infarct. 2. Senescent changes including brain parenchymal volume loss and chronic small vessel ischemic white matter disease. 3. No acute fracture or dislocation. 4. Decompression laminectomies from C3 through C6 with acquired osseous fusion of facet joints. Persistent spondylosis and facet arthrosis contribute to foraminal narrowing. 5. Nodules within the thyroid gland. Largest measures up to 1.1 cm. PAGE 2 Signed Report (CONTINUED) FAX: Nikki Perez MD [phone] [place]: St: PRE FAX: Grey Mandel DO Name: VANESSA VILLEGAS : 1935 Age/S: 86/F [address] Unit: [id number] Loc: [place] [address] Phys: Grey Mandel DO R2 Acct: [id number] Dis Date: Status: PRE ER PHONE #: [phone] Exam Date: 11/06/2021 1435 FAX #: [phone] Reason: fall/head stiek/ neck pain/pain pain/hip pain/ EXAMS: CPT CODE: [id number] CT C-SPINE W/O CONT 30370 <Continued> Correlation with prior ultrasound if available. Consider further characterization with ultrasound on nonemergent basis if not. at 1446 Reported and signed by: Oscar Smith MD CC: Nikki Perez MD; Grey Mandel DO Technologist: Sandra Patino Trnscrd Dt/Tm: 11/06/2021 (2966) [email or web address] Orig Print D/T: S: 11/06/2021 (3369 PAGE 3 Signed Report - CT HEAD/BRAIN 2021-11-06 W/O CONT 14:46:00 [facility] : 1935 Sex: F FAX: Nikki Perez MD [phone] [place]: St: PRE FAX: Grey Mandel DO Name: VANESSA VILLEGAS [facility] : 1935 Age/S: 86/F [address] Unit: [id number] Loc: [place] [address] Phys: Grey Mandel DO R2 Acct: [id number] Dis Date: Status: PRE ER PHONE #: [phone] Exam Date: 11/06/20211434 FAX #: [phone] Reason: fall/head stiek/ neck pain/pain pain/hip pain/ EXAMS: CPT CODE: [id number] CT HEAD/BRAIN W/O CONT 15983 EXAM: 1. CT Head without contrast 2. CT Cervical spine without contrast Location: H24 HISTORY: Fall, head and neck pain COMPARISON: None available. TECHNIQUE: Multiple transaxial images of the head and cervical spine were obtained without intravenous contrast. Images were reformatted to create coronal and sagittal reconstructions. One or more of the following dose reduction techniques were used: Automated exposure control, adjustment of the mA and/or kV according to patient size, and/or utilization of iterative reconstruction technique. DLP: 1443 mGy-cm. FINDINGS: Head There is no acute intracranial hemorrhage. There is no mass, mass effect, midline shift or extra-axial fluid collection. Brain parenchymal volume is diffusely decreased which is within normal limits given patient's age. Enlargement of the right lateral ventricles commensurate with degree of central atrophy. Fairchild-white differentiation is maintained. There is no evidence for acute major vessel infarct. There are areas of decreased attenuation within subcortical and deep white matter which are nonspecific. Paranasal sinuses, mastoid air cells and visualized orbital contents are within normal limits. Bones and calvaria and skull base are intact. Note is made of bilateral lens replacements. Intraorbital contents are within normal limits. FINDINGS: Cervical Spine Postoperative changes include decompression laminectomies from C3 PAGE 1 Signed Report (CONTINUED) FAX: Nikki Perez MD [phone] [place]: St: PRE FAX: Grey Mandel DO Name: [facility] : 1935 Age/S: 86/F [address] Unit: [id number] Loc: [place] [address] Phys: Grey Mandel DO R2 Acct: [id number] Dis Date: Status: PRE ER PHONE #: [phone] Exam Date: 11/06/2021 1435 FAX #: [phone] Reason: fall/head stiek/ neck pain/pain pain/hip pain/ EXAMS: CPT CODE: [id number] CT HEAD/BRAIN W/O CONT 59823 <Continued> through C6. There is acquired, osseous fusion of the facet joints. There is no acute fracture or dislocation. There is diffuse osteopenia. Vertebral body heights are maintained. There is fusion of the disc spaces from C3-C4 through C5-C6. There is mild atrophy of paraspinal muscles. Nodules are present within the thyroid gland. Largest on the right measures up to 1.1 cm. Consider further characterization with thyroid ultrasound. Occiput-C1: Intact. C1-C2: Narrowing of the predental space and subchondral sclerosis. Atlantoaxial joint is maintained. Mild central canal stenosis. Hypertrophy of the right lateral mass contributing to moderate right foraminal narrowing. C2-C3: Disc osteophyte complex measuring up to 3 mm. Fusion of the fused facet joints. Mild foraminal narrowing. Mild central canal stenosis. C3-C4 through C5-C6: Decompression laminectomies are noted. There is persistent spondylotic ridging and hypertrophy of the fused facet joints contributing to moderate foraminal narrowing. C6-C7: Partial decompression. Moderate to severe bilateral facet arthropathy and foraminal narrowing. No canal stenosis. C7-T1: Mild bilateral facet arthropathy and foraminal narrowing. No central canal stenosis. Pleural and parenchymal scarring is seen at bilateral lung apices. IMPRESSION: 1. No acute intracranial abnormality. No acute hemorrhage, mass lesion or infarct. 2. Senescent changes including brain parenchymal volume loss and chronic small vessel ischemic white matter disease. 3. No acute fracture or dislocation. 4. Decompression laminectomies from C3 through C6 with acquired osseous fusion of facet joints. Persistent spondylosis and facet arthrosis contribute to foraminal narrowing. 5. Nodules within the thyroid gland. Largest measures up to 1.1 cm. PAGE 2 Signed Report (CONTINUED) FAX: Nikki Perez MD [phone] [place]: St: PRE FAX: Grey Mandel DO Name: VANESSA VILLEGAS : 1935 Age/S: 86/F [address] Unit: [id number] Loc: [place] [address] Phys: Grey Mandel DO R2 Acct: [id number] Dis Date: Status: PRE ER PHONE #: [phone] Exam Date: 11/06/2021 1435 FAX #: [phone] Reason: fall/head stiek/ neck pain/pain pain/hip pain/ EXAMS: CPT CODE: [id number] CT HEAD/BRAIN W/O CONT 14425 <Continued> Correlation with prior ultrasound if available. Consider further characterization with ultrasound on nonemergent basis if not. at 1444 Reported and signed by: Oscar Smith MD CC: Nikki Perez MD; Grey Mandel DO Technologist: Sandra Patino Trnscrd Dt/Tm: 11/06/2021 (7064) [email or web address] Orig Print D/T: S: 11/06/2021 (6489 PAGE 3 Signed Report - CT HEAD/BRAIN 2021-11-06 W/O CONT 14:46:00 [facility] : 1935 Sex: F FAX: Nikki Perez MD [phone] [place]: St: [facility] FAX: Grey Mandel DO Name: VANESSA VILLEGAS : 1935 Age/S: 86/F [address] Unit: [id number] Loc: [place] [address] Phys: Grey Mandel DO R2 Acct: [id number] Dis Date: Status: [facility] ER PHONE #: [phone] Exam Date: 11/06/2021 1435 FAX #: [phone] Reason: fall/head stiek/ neck pain/pain pain/hip pain/ EXAMS: CPT CODE: [id number] CT HEAD/BRAIN W/O CONT 46402 EXAM: 1. CT Head without contrast 2. CT Cervical spine without contrast Location: H24 HISTORY: Fall, head and neck pain COMPARISON: None available. TECHNIQUE: Multiple transaxial images of the head and cervical spine were obtained without intravenous contrast. Images were reformatted to create coronal and sagittal reconstructions. One or more of the following dose reduction techniques were used: Automated exposure control, adjustment of the mA and/or kV according to patient size, and/or utilization of iterative reconstruction technique. DLP: 1443 mGy-cm. FINDINGS: Head There is no acute intracranial hemorrhage. There is no mass, mass effect, midline shift or extra-axial fluid collection. Brain parenchymal volume is diffusely decreased which is within normal limits given patient's age. Enlargement of the right lateral ventricles commensurate with degree of central atrophy. Fairchild-white differentiation is maintained. There is no evidence for acute major vessel infarct. There are areas of decreased attenuation within subcortical and deep white matter which are nonspecific. Paranasal sinuses, mastoid air cells and visualized orbital contents are within normal limits. Bones and calvaria and skull base are intact. Note is made of bilateral lens replacements. Intraorbital contents are within normal limits. FINDINGS: Cervical Spine Postoperative changes include decompression laminectomies from C3 PAGE 1 Signed Report (CONTINUED) FAX: Nikki Perez MD [phone] [place]: St: [facility] FAX: Grey Mandel DO Name: VANESSA VILLEGAS : 1935 Age/S: 86/F [address] Unit: [id number] Loc: [place] [address] Phys: Grey Mandel DO R2 Acct: [id number] Dis Date: Status: DEP ER PHONE #: [phone] Exam Date: 11/06/2021 1435 FAX #: [phone] Reason: fall/head stiek/ neck pain/pain pain/hip pain/ EXAMS: CPT CODE: [id number] CT HEAD/BRAIN W/O CONT 38343 (Continued) through C6. There is acquired, osseous fusion of the facet joints. There is no acute fracture or dislocation. There is diffuse osteopenia. Vertebral body heights are maintained. There is fusion of the disc spaces from C3-C4 through C5-C6. There is mild atrophy of paraspinal muscles. Nodules are present within the thyroid gland. Largest on the right measures up to 1.1 cm. Consider further characterization with thyroid ultrasound. Occiput-C1: Intact. C1-C2: Narrowing of the predental space and subchondral sclerosis. Atlantoaxial joint is maintained. Mild central canal stenosis. Hypertrophy of the right lateral mass contributing to moderate right foraminal narrowing. C2-C3: Disc osteophyte complex measuring up to 3 mm. Fusion of the fused facet joints. Mild foraminal narrowing. Mild central canal stenosis. C3-C4 through C5-C6: Decompression laminectomies are noted. There is persistent spondylotic ridging and hypertrophy of the fused facet joints contributing to moderate foraminal narrowing. C6-C7: Partial decompression. Moderate to severe bilateral facet arthropathy and foraminal narrowing. No canal stenosis. C7-T1: Mild bilateral facet arthropathy and foraminal narrowing. No central canal stenosis. Pleural and parenchymal scarring is seen at bilateral lung apices. IMPRESSION: 1. No acute intracranial abnormality. No acute hemorrhage, mass lesion or infarct. 2. Senescent changes including brain parenchymal volume loss and chronic small vessel ischemic white matter disease. 3. No acute fracture or dislocation. 4. Decompression laminectomies from C3 through C6 with acquired osseous fusion of facet joints. Persistent spondylosis and facet arthrosis contribute to foraminal narrowing. 5. Nodules within the thyroid gland. Largest measures up to 1.1 cm. PAGE 2 Signed Report (CONTINUED) FAX: Nikki Perez MD [phone] [place]: St: [facility] FAX: Grey Mandel DO Name: VANESSA VILLEGAS [facility] : 1935 Age/S: 86/F [address] Unit: [id number] Loc: [place] [address] Phys: Grey Mandel Acct: [id number] Dis Date: Status: DEP ER PHONE #: [phone] Exam Date: 11/06/2021 1435 FAX #: [phone] Reason: fall/head stiek/ neck pain/pain pain/hip pain/ EXAMS: CPT CODE: [id number] CT HEAD/BRAIN W/O CONT 89187 (Continued) Correlation with prior ultrasound if available. Consider further characterization with ultrasound on nonemergent basis if not. at 1441 Reported and signed by: Oscar Smith MD CC: Nikki Perez MD; Grey Mandel DO Technologist: Sandra Patino Trnscrd Dt/Tm: 11/06/2021 (1446) [email or web address] Orig Print D/T: S: 11/06/2021 (4809 PAGE 3 Signed Report - CT C-SPINE W/O 2021-11-06 CONT 14:46:00 [facility] : 1935 Sex: F FAX: Nikki Perez MD [phone] [place]: St: [facility] FAX: MinisterioGrey DO Name: VANESSA VILLEGAS : 1935 Age/S: 86/F [address] Unit: [id number] Loc: [place] [address] Phys: Grey Mandel DO R2 Acct: [id number] Dis Date: Status: DEP ER PHONE #: [phone] Exam Date: 11/06/2021 1435 FAX #: [phone] Reason: fall/head stiek/ neck pain/pain pain/hip pain/ EXAMS: CPT CODE: [id number] CT C-SPINE W/O CONT 11661 EXAM: 1. CT Head without contrast 2. CT Cervical spine without contrast Location: H24 HISTORY: Fall, head and neck pain COMPARISON: None available. TECHNIQUE: Multiple transaxial images of the head and cervical spine were obtained without intravenous contrast. Images were reformatted to create coronal and sagittal reconstructions. One or more of the following dose reduction techniques were used: Automated exposure control, adjustment of the mA and/or kV according to patient size, and/or utilization of iterative reconstruction technique. DLP: 1443 mGy-cm. FINDINGS: Head There is no acute intracranial hemorrhage. There is no mass, mass effect, midline shift or extra-axial fluid collection. Brain parenchymal volume is diffusely decreased which is within normal limits given patient's age. Enlargement of the right lateral ventricles commensurate with degree of central atrophy. Fairchild-white differentiation is maintained. There is no evidence for acute major vessel infarct. There are areas of decreased attenuation within subcortical and deep white matter which are nonspecific. Paranasal sinuses, mastoid air cells and visualized orbital contents are within normal limits. Bones and calvaria and skull base are intact. Note is made of bilateral lens replacements. Intraorbital contents are within normal limits. FINDINGS: Cervical Spine Postoperative changes include decompression laminectomies from C3 PAGE 1 Signed Report (CONTINUED) FAX: Nikki Perez MD [phone] [place]: St: DEP FAX: MinisterioGrey DO Name: VANESSA VILLEGAS : 1935 Age/S: 86/F [address] Unit: [id number] Loc: [place] [address] Phys: MinisterioGrey DO R2 Acct: [id number] Dis Date: Status: DEP ER PHONE #: [phone] Exam Date: 11/06/2021 1435 FAX #: [phone] Reason: fall/head stiek/ neck pain/pain pain/hip pain/ EXAMS: CPT CODE: [id number] CT C-SPINE W/O CONT 59285 (Continued) through C6. There is acquired, osseous fusion of the facet joints. There is no acute fracture or dislocation. There is diffuse osteopenia. Vertebral body heights are maintained. There is fusion of the disc spaces from C3-C4 through C5-C6. There is mild atrophy of paraspinal muscles. Nodules are present within the thyroid gland. Largest on the right measures up to 1.1 cm. Consider further characterization with thyroid ultrasound. Occiput-C1: Intact. C1-C2: Narrowing of the predental space and subchondral sclerosis. Atlantoaxial joint is maintained. Mild central canal stenosis. Hypertrophy of the right lateral mass contributing to moderate right foraminal narrowing. C2-C3: Disc osteophyte complex measuring up to 3 mm. Fusion of the fused facet joints. Mild foraminal narrowing. Mild central canal stenosis. C3-C4 through C5-C6: Decompression laminectomies are noted. There is persistent spondylotic ridging and hypertrophy of the fused facet joints contributing to moderate foraminal narrowing. C6-C7: Partial decompression. Moderate to severe bilateral facet arthropathy and foraminal narrowing. No canal stenosis. C7-T1: Mild bilateral facet arthropathy and foraminal narrowing. No central canal stenosis. Pleural and parenchymal scarring is seen at bilateral lung apices. IMPRESSION: 1. No acute intracranial abnormality. No acute hemorrhage, mass lesion or infarct. 2. Senescent changes including brain parenchymal volume loss and chronic small vessel ischemic white matter disease. 3. No acute fracture or dislocation. 4. Decompression laminectomies from C3 through C6 with acquired osseous fusion of facet joints. Persistent spondylosis and facet arthrosis contribute to foraminal narrowing. 5. Nodules within the thyroid gland. Largest measures up to 1.1 cm. PAGE 2 Signed Report (CONTINUED) FAX: Nikki Perez MD [phone] [place]: St: [facility] FAX: Grey Mandel DO Name: VANESSA VILLEGAS [place] : 1935 Age/S: 86/F [address] Unit: [id number] Loc: [place] [address] Phys: Grey Mandel DO R2 Acct: [id number] Dis Date: Status: DEP ER PHONE #: [phone] Exam Date: 11/06/2021 1435 FAX #: [phone] Reason: fall/head stiek/ neck pain/pain pain/hip pain/ EXAMS: CPT CODE: [id number] CT C-SPINE W/O CONT 59486 (Continued) Correlation with prior ultrasound if available. Consider further characterization with ultrasound on nonemergent basis if not. at 1446 Reported and signed by: Oscar Smith MD CC: Nikki Perez MD; Grey Mandel DO Technologist: Sandra Patino Trnscrd Dt/Tm: 11/06/2021 (5242) [email or web address] Orig Print D/T: S: 11/06/2021 (9499 PAGE 3 Signed Report - XR HIP W/PEL UNI 2020-10-14 2+V RT 12:47:00 [facility] [place] : 1935 Sex: F FAX: El Garces MD [phone] [place]: St: REG FAX: Johnny Danielle [place]- [phone] Name: VANESSA VILLEGAS [facility] : 1935 Age/S: 85/F [address] Unit #: [id number] Loc: [place] [address] Phys: El Ochoa MD Acct: [id number] Dis Date: Status: REG CLI PHONE #: [phone] Exam Date: 10/14/2020 1151 FAX #: [phone] Reason: UNSP FRACTURE OF RIGHT FEMUR, INIT FOR CLOS FX EXAMS: CPT CODE: [id number] XR HIP W/PEL UNI 2+[place] [id number] EXAM: - XR HIP W/PEL UNI 2+V RT HISTORY: UNSP FRACTURE OF RIGHT FEMUR, INIT FOR CLOS FX Location code:C3 COMPARISON: 08/28/2020 FINDINGS: AP view of the pelvis with AP and frog-leg lateral view of the right hip is provided. Right hip hemiarthroplasty is present with proximal cerclage wires. There is no periprosthetic fracture. The hardware appears intact and fully engaged. The left femoral head is located. IMPRESSION: 1. Right hip arthroplasty is present without acute osseous abnormality. at 1247 Reported and signed by: Nirmal Monzon MD CC: El Ochoa MD; Johnny Ruiz Technologist: MORELIA VINES Trnscrd Date/Time/By: 10/14/2020 (6532) : By: [email or web address] PAGE 1 Signed Report FAX: El Garces MD [phone] [place]: St: REG FAX: Johnny Danielle- [phone] Name: VANESSA VILLEGAS [facility] [place] : 1935 Age/S: 85/F [address] Unit #: [id number] Loc: [place] [address] Phys: El Ochoa MD Acct: [id number] Dis Date: Status: REG CLI PHONE #: [phone] Exam Date: 10/14/2020 1151 FAX #: [phone] Reason: UNSP FRACTURE OF RIGHT FEMUR, INIT FOR CLOS FX EXAMS: CPT CODE: [id number] XR HIP W/PEL UNI 2+V RT 54200 (Continued) Orig Print D/T: S: 10/14/2020 (4707) PAGE 2 Signed Report COMPREHENSIVE METABOLIC PANEL 2020-08-30 07:08:00 Test Item Value Reference Range Interpretation Comme nts SODIUM (test code = NA) 138 mmol/L 137-145 N POTASSIUM (test code = K) 3.8 mmol/L 3.4-5.0 N CHLORIDE (test code = CL) 113 mmol/L 98-107 H CARBON DIOXIDE (test code = 20 mmol/L 22-30 L CO2) GLUCOSE (test code = GLU) 99 mg/dL 74-106 N BLOOD UREA NITROGEN (test code 16 mg/dL 7-17 N = BUN) GLOMERULAR FILTRATION RATE 63 >60 T he estimated glomerular (test code = GFR) filtration rate is computed usingpatient ra ce, age (>18), sex, and serum creatinine. If anyof the neede d data elements are missing the Laboratory cannot compute an hussain mation of the glomerular filt ration rate. CREATININE (test code = CREAT) 0.9 mg/dL 0.5-1.0 N TOTAL PROTEIN (test code = 5.4 g/dL 6.3-8.2 L PROT) ALBUMIN (test code = ALB) 2.8 g/dL 3.5-5.0 L CALCIUM (test code = CA) 8.2 mg/dL 8.4-10.2 L BILIRUBIN TOTAL (test code = 0.7 mg/dL 0.2-1.3 N "A positive bias may occur for BILT) patients taking Eltrombopag(a bone marrow sti mulant used to treat thrombocy topenia andaplastic ane jan)." BILIRUBIN CONJUGATED (test 0 mg/dL 0-0.3 N " A positive bias may occur for code = BILCON) patients taki ng Eltrombopag(a bone marrow sti mulant used to treat thrombocy topenia andaplastic ane jan)." CONJUG ATED BILIRUBIN IS THE REPLACEMENT ASSAY FOR DIRECTBILIRUBIN . BILIRUBIN UNCONJUGATED (test 0.5 mg/dL 0-1.1 N code = BILUNC) SGOT/AST (test code = AST) 38 U/L 15-46 N SGPT/ALT (test code = ALT) 11 U/L 0-34 N ALKALINE PHOSPHATASE (test 41 U/L 38-126 N code = ALKP) COMPREHENSIVE METABOLIC [id number] 07:07:00 Test Item Value Reference Range Interpretation Comments SODIUM (test code = 138 mmol/L 137-145 N NA) POTASSIUM (test code 3.8 mmol/L 3.4-5.0 N = K) CHLORIDE (test code 113 mmol/L 98-107 H = CL) CARBON DIOXIDE (test 20 mmol/L 22-30 L code = CO2) GLUCOSE (test code = 99 mg/dL 74-106 N GLU) BLOOD UREA NITROGEN 16 mg/dL 7-17 N (test code = BUN) GLOMERULAR 63 >60 The estimated FILTRATION RATE glomerular f iltration (test code = GFR) rate is co mputed usingpatient ra ce, age (>18), sex, and serum creatinine. If anyof the needed data elements are mi ssing the Laboratory cannot compute an hussain mation of the glomerul ar filtration rate . CREATININE (test 0.9 mg/dL 0.5-1.0 N code = CREAT) TOTAL PROTEIN (test 5.4 g/dL 6.3-8.2 L code = PROT) ALBUMIN (test code = 2.8 g/dL 3.5-5.0 L ALB) CALCIUM (test code = 8.2 mg/dL 8.4-10.2 L CA) BILIRUBIN TOTAL 0.7 mg/dL 0.2-1.3 N "A positive bias may (test code = BILT) occur for patients taking Eltrombo pag(a bone marrow sti mulant used to treat thrombocytopeni a andaplastic ane jan)." BILIRUBIN CONJUGATED 0 mg/dL 0-0.3 N "A posi tive bias may (test code = BILCON) occur f or patients taking Eltrombo pag(a bone marrow sti mulant used to treat thrombocytopeni a andaplastic ane jan)." C ONJUGATE D BILIRUBIN IS THE REPLACEMENT ASS AY FOR DIRECTBILIRUBIN . BILIRUBIN 0.5 mg/dL 0-1.1 N UNCONJUGATED (test code = BILUNC) SGOT/AST (test code 38 U/L 15-46 N = AST) SGPT/ALT (test code U/L 0-34 = ALT) ALKALINE PHOSPHATASE 41 U/L 38-126 N (test code = ALKP) CBC W/AUTO [id number] 06:52:00 Test Item Value Reference Range Interpretation Comments WHITE BLOOD CELL (test code = 7.1 x10 3/uL 5.0-12.0 N WBC) RED BLOOD CELL (test code = 3.07 x10 6/uL 4.20-5.40 L RBC) HEMOGLOBIN (test code = HGB) 9.3 g/dL 12.0-16.0 L HEMATOCRIT (test code = HCT) 30.4 % 36.0-46.0 L MEAN CELL VOLUME (test code = 99 fL 81-99 N MCV) MEAN CELL HGB (test code = MCH) 30.3 pg 27-31 N MEAN CELL HGB CONCENTRATION 30.6 g/dL 33-37 L (test code = MCHC) RED CELL DISTRIBUTION WIDTH 12.7 % 11.5-15.5 N (test code = RDW) PLATELET COUNT (test code = 165 x10 3/uL 130-400 N PLT) MEAN PLATELET VOLUME (test code 8.9 fL 9.4-16.4 L = MPV) NEUTROPHIL % (test code = NT%) 73.0 % 43-65 H IMMATURE GRANULOCYTE % (test 0.3 % 0.0-2.0 N code = IG%) LYMPHOCYTE % (test code = LY%) 12.9 % 20.5-45.5 L MONOCYTE % (test code = MO%) 9.3 % 5.5-11.7 N EOSINOPHIL % (test code = EO%) 4.1 % 0.9-2.9 H BASOPHIL % (test code = BA%) 0.4 % 0.2-1.0 N NUCLEATED RBC % (test code = 0.0 % 0-1.0 N NRBC%) NEUTROPHIL # (test code = NT#) 5.21 x10 3/uL 2.2-4.8 H IMMATURE GRANULOCYTE # (test 0.02 x10 3/uL 0-0.03 N code = IG#) LYMPHOCYTE # (test code = LY#) 0.92 x10 3/uL 1.3-2.9 L MONOCYTE # (test code = MO#) 0.66 x10 3/uL 0.3-0.8 N EOSINOPHIL # (test code = EO#) 0.29 x10 3/uL 0.0-0.2 H BASOPHIL # (test code = BA#) 0.03 x10 3/uL 0.0-0.1 N HGB [id number] 12:12:00 Test Item Value Reference Range Interpretation Comments HEMOGLOBIN (test code = HGB) 9.2 g/dL 12.0-16.0 L HEMATOCRIT (test code = HCT) 28.0 % 36.0-46.0 L BASIC METABOLIC [id number] 08:05:00 Test Item Value Reference Range Interpretation Comments SODIUM (test code = 133 mmol/L 137-145 L NA) POTASSIUM (test code 4.5 mmol/L 3.4-5.0 N = K) CHLORIDE (test code = 106 mmol/L 98-107 N CL) CARBON DIOXIDE (test 23 mmol/L 22-30 N code = CO2) GLUCOSE (test code = 108 mg/dL 74-106 H GLU) BLOOD UREA NITROGEN 22 mg/dL 7-17 H (test code = BUN) GLOMERULAR FILTRATION 73 >60 The es timated RATE (test code = glomerular filtration GFR) rate is compute d usingpatient ra ce, age (>18), sex, and serum creatinine. If anyof the needed data elements are mi ssing the Laboratory cannot compute an hussain mation of the glomerul ar filtration rate . CREATININE (test code 0.8 mg/dL 0.5-1.0 N = CREAT) CALCIUM (test code = 8.0 mg/dL 8.4-10.2 L CA) COMPREHENSIVE METABOLIC [id number] 08:05:00 Test Item Value Reference Range Interpretation Comments TOTAL PROTEIN (test 4.9 g/dL 6.3-8.2 L code = PROT) ALBUMIN (test code = 2.7 g/dL 3.5-5.0 L ALB) BILIRUBIN TOTAL 0.5 mg/dL 0.2-1.3 N "A positive bias may (test code = BILT) occur for patients taking Eltrombo pag(a bone marrow sti mulant used to treat thrombocytopeni a andaplastic ane jan)." BILIRUBIN CONJUGATED 0 mg/dL 0-0.3 N "A posi tive bias may (test code = BILCON) occur f or patients taking Eltrombo pag(a bone marrow sti mulant used to treat thrombocytopeni a andaplastic ane jan)." CON JUGATED BILIRUBIN IS TH E REPLACEMENT ASS AY FOR DIRECTBILIRUBIN . BILIRUBIN 0.5 mg/dL 0-1.1 N UNCONJUGATED (test code = BILUNC) SGOT/AST (test code 41 U/L 15-46 N = AST) SGPT/ALT (test code 15 U/L 0-34 N = ALT) ALKALINE PHOSPHATASE 38 U/L 38-126 N (test code = ALKP) CBC W/AUTO [id number] 07:36:00 Test Item Value Reference Range Interpretation Comments WHITE BLOOD CELL (test code = 8.3 x10 3/uL 5.0-12.0 N WBC) RED BLOOD CELL (test code = 3.02 x10 6/uL 4.20-5.40 L RBC) HEMOGLOBIN (test code = HGB) 9.3 g/dL 12.0-16.0 L HEMATOCRIT (test code = HCT) 29.6 % 36.0-46.0 L MEAN CELL VOLUME (test code = 98 fL 81-99 N MCV) MEAN CELL HGB (test code = MCH) 30.8 pg 27-31 N MEAN CELL HGB CONCENTRATION 31.4 g/dL 33-37 L (test code = MCHC) RED CELL DISTRIBUTION WIDTH 12.4 % 11.5-15.5 N (test code = RDW) PLATELET COUNT (test code = 161 x10 3/uL 130-400 N PLT) MEAN PLATELET VOLUME (test code 8.7 fL 9.4-16.4 L = MPV) NEUTROPHIL % (test code = NT%) 78.6 % 43-65 H IMMATURE GRANULOCYTE % (test 0.2 % 0.0-2.0 N code = IG%) LYMPHOCYTE % (test code = LY%) 11.5 % 20.5-45.5 L MONOCYTE % (test code = MO%) 8.8 % 5.5-11.7 N EOSINOPHIL % (test code = EO%) 0.8 % 0.9-2.9 L BASOPHIL % (test code = BA%) 0.1 % 0.2-1.0 L NUCLEATED RBC % (test code = 0.0 % 0-1.0 N NRBC%) NEUTROPHIL # (test code = NT#) 6.53 x10 3/uL 2.2-4.8 H IMMATURE GRANULOCYTE # (test 0.02 x10 3/uL 0-0.03 N code = IG#) LYMPHOCYTE # (test code = LY#) 0.96 x10 3/uL 1.3-2.9 L MONOCYTE # (test code = MO#) 0.73 x10 3/uL 0.3-0.8 N EOSINOPHIL # (test code = EO#) 0.07 x10 3/uL 0.0-0.2 N BASOPHIL # (test code = BA#) 0.01 x10 3/uL 0.0-0.1 N BASIC METABOLIC [id number] 18:24:00 Test Item Value Reference Range Interpretation Comments SODIUM (test code = 134 mmol/L 137-145 L NA) POTASSIUM (test code 4.2 mmol/L 3.4-5.0 N = K) CHLORIDE (test code = 105 mmol/L 98-107 N CL) CARBON DIOXIDE (test 24 mmol/L 22-30 N code = CO2) GLUCOSE (test code = 117 mg/dL 74-106 H GLU) BLOOD UREA NITROGEN 16 mg/dL 7-17 N (test code = BUN) GLOMERULAR FILTRATION 101 >60 The es timated RATE (test code = glomerular filtration GFR) rate is compute d usingpatient ra ce, age (>18), sex, and serum creatinine. If anyof the needed data elements are mi ssing the Laboratory cannot compute an hussain mation of the glomerul ar filtration rate . CREATININE (test code 0.6 mg/dL 0.5-1.0 N = CREAT) CALCIUM (test code = 8.6 mg/dL 8.4-10.2 N CA) [id number] 18:24:00 Test Item Value Reference Range Interpretation Comments PHOSPHOROUS (test code = PHOS) 3.5 mg/dL 2.5-4.5 N [id number] 18:24:00 Test Item Value Reference Range Interpretation Comments MAGNESIUM (test code = MAG) 1.8 mg/dL 1.6-2.3 N BASIC METABOLIC [id number] 18:15:00 Test Item Value Reference Range Interpretation Comments SODIUM (test code = 134 mmol/L 137-145 L NA) POTASSIUM (test code 4.2 mmol/L 3.4-5.0 N = K) CHLORIDE (test code = 105 mmol/L 98-107 N CL) CARBON DIOXIDE (test 24 mmol/L 22-30 N code = CO2) GLUCOSE (test code = 117 mg/dL 74-106 H GLU) BLOOD UREA NITROGEN 16 mg/dL 7-17 N (test code = BUN) GLOMERULAR FILTRATION 101 >60 The es timated RATE (test code = glomerular filtration GFR) rate is compute d usingpatient ra ce, age (>18), sex, and serum creatinine. If anyof the needed data elements are mi ssing the Laboratory cannot compute an hussain mation of the glomerul ar filtration rate . CREATININE (test code 0.6 mg/dL 0.5-1.0 N = CREAT) CALCIUM (test code = 8.6 mg/dL 8.4-10.2 N CA) [id number] 18:15:00 Test Item Value Reference Range Interpretation Comments PHOSPHOROUS (test code = PHOS) mg/dL 2.5-4.5 [id number] 18:15:00 Test Item Value Reference Range Interpretation Comments MAGNESIUM (test code = MAG) mg/dL 1.6-2.3 CBC W/AUTO [id number] 17:42:00 Test Item Value Reference Range Interpretation Comments WHITE BLOOD CELL (test code = 10.3 x10 3/uL 5.0-12.0 N WBC) RED BLOOD CELL (test code = 3.98 x10 6/uL 4.20-5.40 L RBC) HEMOGLOBIN (test code = HGB) 12.7 g/dL 12.0-16.0 N HEMATOCRIT (test code = HCT) 38.0 % 36.0-46.0 N MEAN CELL VOLUME (test code = 96 fL 81-99 N MCV) MEAN CELL HGB (test code = MCH) 31.9 pg 27-31 H MEAN CELL HGB CONCENTRATION 33.4 g/dL 33-37 N (test code = MCHC) RED CELL DISTRIBUTION WIDTH 12.0 % 11.5-15.5 N (test code = RDW) PLATELET COUNT (test code = 194 x10 3/uL 130-400 N PLT) MEAN PLATELET VOLUME (test code 8.8 fL 9.4-16.4 L = MPV) NEUTROPHIL % (test code = NT%) 90.3 % 43-65 H IMMATURE GRANULOCYTE % (test 0.2 % 0.0-2.0 N code = IG%) LYMPHOCYTE % (test code = LY%) 5.9 % 20.5-45.5 L MONOCYTE % (test code = MO%) 3.5 % 5.5-11.7 L EOSINOPHIL % (test code = EO%) 0.0 % 0.9-2.9 L BASOPHIL % (test code = BA%) 0.1 % 0.2-1.0 L NUCLEATED RBC % (test code = 0.0 % 0-1.0 N NRBC%) NEUTROPHIL # (test code = NT#) 9.29 x10 3/uL 2.2-4.8 H IMMATURE GRANULOCYTE # (test 0.02 x10 3/uL 0-0.03 N code = IG#) LYMPHOCYTE # (test code = LY#) 0.61 x10 3/uL 1.3-2.9 L MONOCYTE # (test code = MO#) 0.36 x10 3/uL 0.3-0.8 N EOSINOPHIL # (test code = EO#) 0.00 x10 3/uL 0.0-0.2 N BASOPHIL # (test code = BA#) 0.01 x10 3/uL 0.0-0.1 N - XR PELVIS 1/2 [id number] 14:50:00 FAX: Lindsya Rocha MD [phone] [place]: St: ADM FAX: Parish Ashraf [phone] FAX: Johnny Danielle- [phone] Name: VANESSA VILLEGAS [facility] : 1935 Age/S: 84/F [address] Unit #: [id number] Loc: [address] [address] Phys: Parish Ashraf MD Acct: [id number] Dis Date: Status: ADM IN PHONE #: [phone] Exam Date: 08/28/2020 1400 FAX #: [phone] Reason: RIGHT HIPREPLACEMENT EXAMS: CPT CODE: [id number] XR PELVIS 1/2 VIEWS 57669 EXAM: - XR PELVIS 1/2 VIEWS INDICAT ION: RIGHT HIP REPLACEMENT Location: T 18. COMPARISON: Radiograph performed earlier the same day. TECHNIQUE: 2 views. FINDINGS: Patient is post right hip arthroplasty for fixation of the right femur neck fracture. Postoperative soft tissue swelling and gas seen. IMPRESSION: Right hip arthroplasty. at 1450 Reported and signed by: Scott Ware MD CC: Lindsay Seaman MD; Parish Ashraf MD; Johnny Ruiz Technologist: Ranjan Acuña Trnscrd Date/Time/By: 08/28/2020 (1450) : By: [email or web address] PAGE 1 Signed Report FAX: Lindsay Rocha MD 1,[phone] [place]: St: ADM FAX: Parish Ashraf [phone] FAX: Elvira RuizJohnny T [place]- [phone] Name: VANESSA VILLEGAS [facility] : 1935 Age/S: 84/F [address] Unit #: [id number] Loc: [address] [address] Phys: Parish Ashraf MD Acct: [id number] Dis Date: Status:ADM IN PHONE #: [phone] Exam Date: 08/28/2020 1400 FAX #: [phone] Reason: RIGHT HIP REPLACEMENT EXAMS: CPT CODE: [id number] XR PELVIS 1/2 VIEWS 92797 (Continued) Orig Print D/T: S: 08/28/2020(1454) PAGE 2 Signed ReportCOVID 19 Asymptomatic IH [id number] 08:35:00 Test Item Value Reference Range Interpretation Comments COVID 19 Asymptomatic IH AG (test NEGATIVE Negative code = COVNONPUIAG) BASIC METABOLIC [id number] 06:15:00 Test Item Value Reference Range Interpretation Comments SODIUM (test code = 136 mmol/L 137-145 L NA) POTASSIUM (test code 4.0 mmol/L 3.4-5.0 N = K) CHLORIDE (test code = 107 mmol/L 98-107 N CL) CARBON DIOXIDE (test 18 mmol/L 22-30 L code = CO2) GLUCOSE (test code = 131 mg/dL 74-106 H GLU) BLOOD UREA NITROGEN 18 mg/dL 7-17 H (test code = BUN) GLOMERULAR FILTRATION 125 >60 The es timated RATE (test code = glomerular filtration GFR) rate is compute d usingpatient ra ce, age (>18), sex, and serum creatinine. If anyof the needed data elements are mi ssing the Laboratory cannot compute an hussain mation of the glomerul ar filtration rate . CREATININE (test code 0.5 mg/dL 0.5-1.0 N = CREAT) CALCIUM (test code = 8.7 mg/dL 8.4-10.2 N CA) [id number] 06:15:00 Test Item Value Reference Range Interpretation Comments PHOSPHOROUS (test code = PHOS) 3.3 mg/dL 2.5-4.5 N [id number] 06:15:00 Test Item Value Reference Range Interpretation Comments MAGNESIUM (test code = MAG) 1.8 mg/dL 1.6-2.3 N BASIC METABOLIC [id number] 06:14:00 Test Item Value Reference Range Interpretation Comments SODIUM (test code = 136 mmol/L 137-145 L NA) POTASSIUM (test code 4.0 mmol/L 3.4-5.0 N = K) CHLORIDE (test code = 107 mmol/L 98-107 N CL) CARBON DIOXIDE (test 18 mmol/L 22-30 L code = CO2) GLUCOSE (test code = 131 mg/dL 74-106 H GLU) BLOOD UREA NITROGEN 18 mg/dL 7-17 H (test code = BUN) GLOMERULAR FILTRATION 125 >60 The es timated RATE (test code = glomerular filtration GFR) rate is compute d usingpatient ra ce, age (>18), sex, and serum creatinine. If anyof the needed data elements are mi ssing the Laboratory cannot compute an hussain mation of the glomerul ar filtration rate . CREATININE (test code 0.5 mg/dL 0.5-1.0 N = CREAT) CALCIUM (test code = 8.7 mg/dL 8.4-10.2 N CA) [id number] 06:14:00 Test Item Value Reference Range Interpretation Comments PHOSPHOROUS (test code = PHOS) mg/dL 2.5-4.5 [id number] 06:14:00 Test Item Value Reference Range Interpretation Comments MAGNESIUM (test code = MAG) mg/dL 1.6-2.3 CBC W/AUTO [id number] 05:58:00 Test Item Value Reference Range Interpretation Comments WHITE BLOOD CELL (test code = 11.0 x10 3/uL 5.0-12.0 N WBC) RED BLOOD CELL (test code = 4.07 x10 6/uL 4.20-5.40 L RBC) HEMOGLOBIN (test code = HGB) 12.8 g/dL 12.0-16.0 N HEMATOCRIT (test code = HCT) 39.3 % 36.0-46.0 N MEAN CELL VOLUME (test code = 97 fL 81-99 N MCV) MEAN CELL HGB (test code = MCH) 31.4 pg 27-31 H MEAN CELL HGB CONCENTRATION 32.6 g/dL 33-37 L (test code = MCHC) RED CELL DISTRIBUTION WIDTH 12.0 % 11.5-15.5 N (test code = RDW) PLATELET COUNT (test code = 215 x10 3/uL 130-400 N PLT) MEAN PLATELET VOLUME (test code 8.9 fL 9.4-16.4 L = MPV) NEUTROPHIL % (test code = NT%) 90.6 % 43-65 H IMMATURE GRANULOCYTE % (test 0.4 % 0.0-2.0 N code = IG%) LYMPHOCYTE % (test code = LY%) 5.7 % 20.5-45.5 L MONOCYTE % (test code = MO%) 3.1 % 5.5-11.7 L EOSINOPHIL % (test code = EO%) 0.0 % 0.9-2.9 L BASOPHIL % (test code = BA%) 0.2 % 0.2-1.0 N NUCLEATED RBC % (test code = 0.0 % 0-1.0 N NRBC%) NEUTROPHIL # (test code = NT#) 9.95 x10 3/uL 2.2-4.8 H IMMATURE GRANULOCYTE # (test 0.04 x10 3/uL 0-0.03 H code = IG#) LYMPHOCYTE # (test code = LY#) 0.63 x10 3/uL 1.3-2.9 L MONOCYTE # (test code = MO#) 0.34 x10 3/uL 0.3-0.8 N EOSINOPHIL # (test code = EO#) 0.00 x10 3/uL 0.0-0.2 N BASOPHIL # (test code = BA#) 0.02 x10 3/uL 0.0-0.1 N - XR KNEE 1 OR 2 V [id number] 03:33:00 FAX: Petr Holley MD [place]: [facility]: ADM FAX: Elvira RuizJohnny Jennifer PINO- [phone] Name: VANESSA VILLEGAS [facility] :1935 Age/S: 84/F [address] Unit #: [id number] Loc: [address] [address] Phys: Petr Holley MD R1 Acct: [id number] Dis Date: Status: ADM IN PHONE #: [phone] Exam Date: 08/28/2020 020 FAX #: [phone] Reason: fall, pain with ROM EXAMS: CPT CODE: [id number] XR KNEE 1 OR 2 VBI 12601 AFTER HOURS SERVICE ON: 08/28/2020 3:29 AM Left Femur, 4 Views Location Code M12 History: fall, pain with ROM Findings: There is osteopenia. There is no fracture or dislocation. There is no periosteal elevation. No lytic or blastic lesions. Impression: Osteopenia. No fracture. AFTER HOURS SERVICE ON: 08/28/2020 3:29 AM Right Femur, 4 Views Location Code M12 History: fall, pain with ROM Findings: There is an impacted mildly displaced femoral neck fracture. There is osteopenia. Femoral head is intact. Impression: Mildly displaced impacted right femoral neck fracture. PAGE 1 Signed Report (CONTINUED) FAX: Petr Holley MD [place]: [facility]: ADM FAX: Johnny Danielle- [phone] Name: VANESSA VILLEGAS [facility] : 1935 Age/S: 84/F [address] Unit #: [id number] Loc: [address] [address] Phys: Petr Holley MD R1 Acct: [id number] Dis Date: Status: ADM IN PHONE #: [phone] Exam Date: FAX #: [phone] Reason: fall, pain with ROM EXAMS: CPT CODE: [id number] XR KNEE 1 [place] [address] (Continued) AFTER HOURS SERVICE ON: 08/28/2020 3:29 AM Right Knee, 3 Views Location Code M12 History: fall, pain with ROM Findings: There is osteopenia. Advanced degenerative tricompartmental joint space narrowing is noted. There is no fracture. Femoral condyles and tibial plateaus are unremarkab le. Impression: Advanced osteoarthritic changes. No fracture. AFTER HOURS SERVICE ON: 08/28/2020 3:29 AM Left Knee, 3 Views Location Code M12 History: fall, pain with ROM Findings: There is osteopenia. Advanced degenerative tricompartmental joint space narrowing is noted. There is no fracture. Femoral condyles and tibial plateaus are unremarkable. Impression: PAGE 2 Signed Report (CONTINUED) FAX: Petr Holley MD [place]: [facility]: ADM FAX: Johnny Danielle- [phone] Name: VANESSA VILLEGAS : 1935 Age/S: 84/F [address] Unit #: [id number] Loc: [address] [place] [address] Phys: Petr Holley MD R1 Acct: [id number] Dis Date: Status: ADM IN PHONE #: [phone] Exam Date: 08/28/2020 0200 FAX #: [phone] Reason: fall, pain with ROM EXAMS: CPT CODE: [id number] XR KNEE 1 [place] 2 [place] [address] (Continued) Advanced osteoarthritic changes. No fracture. AFTER HOURS SERVICE ON: 08/28/2020 3:29 AM Pelvis and Bilateral Hips, 5 Views Location Code M12 History: fall, pain with ROM Findings: There is osteopenia. There is an impacted right femoral neck fracture. There is bilateral femoral acetabular joint space narrowing. Pubic symphysis and pubic rami are unremarkable. Impression: Impacted mildly displaced right femoral neck fracture. at 0333 Re ported and signed by: Kishan Garcia MD CC: Petr Holley MD; Johnny Ruiz Technologist: Casandra MoonRT (R) Trnscrd Date/Time/By: 08/28/2020 (0333) : By: [email or web address] PAGE 3 Signed Report FAX: Petr Holley MD [place]: St: [facility] FAX: Johnny Danielle [phone] Name: VANESSA VILLEGAS [facility] : 1935 Age/S: 84/F [address] Unit #: [id number] Loc: [address] [place] [address] Phys: Petr Holley MD R1 Acct: [id number] Dis Date: Status: ADM IN PHONE #: [phone] Exam Date: 0200 FAX #: [phone] Reason: fall, pain with ROM EXAMS: CPT CODE: [id number] XR KNEE 1 OR 2 VBI 27009 (Continued) Orig Print D/T: S: 08/28/2020 (0336) PAGE 4 Signed Report- XR HIP BI [id number] 03:33:00 FAX: Petr Holley MD R [place]: [facility]: [facility] FAX: Johnny Danielle- [phone] Name: VANESSA VILLEGAS [facility] : 1935 Age/S: 84/F [address] Unit #: [id number] Loc: [address] [place] [address] Phys: Petr Holley MD R1 Acct: [id number] Dis Date: Status: ADM IN PHONE #: [phone] Exam Date: 08/28/20199 FAX #: [phone] Reason: fall, pain with ROM EXAMS: CPT CODE: [id number] XR HIP BI W/PELVIS 72244 AFTER HOURS SERVICE ON: 08/28/2020 3:29 AM Left Femur, 4 Views Location Code M12 History: fall, pain with ROM Findings: There is osteopenia. There is no fracture or dislocation. There is no periosteal elevation. No lytic or blastic lesions. Impression: Osteopenia. No fracture. AFTER HOURS SERVICE ON: 08/28/2020 3:29 AM Right Femur, 4 Views LocationCode M12 History: fall, pain with ROM Findings: There is an impacted mildly displaced femoral neck fracture. There is osteopenia. Femoral head is intact. Impression: Mildly displaced impacted right femoral neck fracture. PAGE 1 Signed Report (CONTINUED) FAX: Petr Holley MD [place]: [facility]: [facility] FAX: Johnny Danielle [place]- [phone] Name: VANESSA VILLEGAS [facility] : 1935 Age/S: 84/F [address] Unit #: [id number] Loc: [address] [address] Phys: Petr Holley MD R1 Acct: [id number] Dis Date: Status: ADM IN PHONE #: [phone] Exam Date: FAX #: [phone] Reason: fall, pain with ROM EXAMS: CPT CODE: [id number] XR HIP BI W/PELVIS 96856 (Continued) AFTER HOURS SERVICE ON: 08/28/2020 3:29 AM Right Knee, 3 Views Location Code M12 History: fall, pain with ROM Findings: There is osteopenia. Advanced degenerative tricompartmental joint space narrowing is noted. There is no fracture. Femoral condyles and tibial plateaus are unremarkab le. Impression: Advanced osteoarthritic changes. No fracture. AFTER HOURS SERVICE ON: 08/28/2020 3:29 AM Left Knee, 3 Views Location Code M12 History: fall, pain with ROM Findings: There is osteopenia. Advanced degenerative tricompartmental joint space narrowing isnoted. There is no fracture. Femoral condyles and tibial plateaus are unremarkable. Impression: PAGE 2 Signed Report (CONTINUED) FAX: Petr Holley MD [place]: [facility]: [facility] FAX: Johnny Danielle-[phone] Name: VANESSA VILLEGAS [facility] : 1935 Age/S: 84/F [address] Unit #: [id number] Loc: [address] [address] Phys: Petr Holley MD R1 Acct: [id number] Dis Date: Status: ADM IN PHONE #: [phone] Exam Date: 08/28/2020 0200 FAX #: [phone] Reason: fall, pain with ROM EXAMS: CPT CODE: [id number] XR HIP BI W/PELVIS [address]75[address] (Continued) Advanced osteoarthritic changes. No fracture. AFTER HOURS SERVICE ON: 08/28/2020 3:29 AM Pelvis and Bilateral Hips, 5 Views Location Code M12 History: fall, pain with ROM Findings: There is osteopenia. There is an impacted right femoral neck fracture. There is bilateral femoral acetabular joint space narrowing. Pubic symphysis and pubic rami are unremarkable. Impression: Impacted mildly displaced right femoral neck fracture. at 0333 Reported and signed by: Kishan Garcia MD CC: Petr Holley MD; Johnny Ruiz Technologis t: Casandra Moon (R) Trnscrd Date/Time/By: 08/28/2020 (332) : By: [email or web address] PAGE 3 Signed Report FAX: Petr Holley MD [place]: [facility]: ADM FAX: Johnny Danielle [phone] Name: VANESSA VILLEGAS [facility] : 1935 Age/S: 84/F [address] Unit #: [id number] Loc: [address] [address] Phys: Petr Holley MD R1 Acct: [id number] Dis Date: Status: ADM IN PHONE #: [phone] Exam Date: 2019 020 FAX #: [phone] Reason: fall, pain with ROM EXAMS: CPT CODE: [id number] XR HIP BI W/PELVIS 09663 (Continued) Orig Print D/T: S: 08/28/2020 (335) PAGE 4 Signed Report- XR FEMUR MIN 2 VW [id number] 03:33:00 FAX: Petr Holley MD R [place]: [facility]: ADM FAX: Johnny Danielle [phone] Name: [facility] [place] [facility]1935 Age/S: 84/F [address] Unit #: [id number] Loc: [place] [address] Phys: Petr Holley MD R1 Acct: [id number] Dis Date: Status: ADM IN PHONE #: [phone] Exam Date: 08/28/2020 0200 FAX #: [phone] Reason: fall, pain with ROM EXAMS: CPT CODE: [id number] XR FEMUR MIN [address] [place] [address] AFTER HOURS SERVICE ON: 08/28/2020 3:29 AM Left Femur, 4 Views Location Code M12 History: fall, pain with ROM Findings: There is osteopenia. There is no fracture or dislocation. There is no periosteal elevation. No lytic or blastic lesions. Impression: Osteopenia. No fracture. AFTER HOURS SERVICE ON: 08/28/2020 3:29 AM Right Femur, 4 Views Location Code M12 History: fall, pain with ROM Findings: There is an impacted mildly displaced femoral neckfracture. There is osteopenia. Femoral head is intact. Impression: Mildly displaced impacted right femoral neck fracture. PAGE 1 Signed Report (CONTINUED)FAX: Petr Holley MD R [place]: St: [facility] FAX: Johnny Danielle- [phone] Name: VANESSA VILLEGAS [facility] [place] :1935 Age/S: 84/F [address] Unit #: [id number] Loc: [place] [address] Phys: Petr Holley MD R1 Acct: [id number] Dis Date: Status: ADM IN PHONE #: [phone] Exam Date: 08/28/2020 0200 FAX #: [phone] Reason: fall, pain with ROM EXAMS: CPT CODE: [id number] XR FEMUR MIN 2 VWRT [address]59[address] (Continued) AFTER HOURS SERVICE ON: 08/28/2020 3:29 AM Right Knee, 3 Views Location Code A87Rsabnss: fall, pain with ROM Findings: There is osteopenia. Advanced degenerative tricompartmental joint space narrowing is noted. There is no fracture. Femoral condyles and tibial plateaus are unremark able. Impression: Advanced osteoarthritic changes. No fracture. AFTER HOURS SERVICE ON: 08/28/2020 3:29 AM Left Knee, 3 Views Location Code M12 History: fall, pain with ROM Findings: There is osteopenia. Advanced degenerative tricompartmental joint space narrowing isnoted. There is no fracture. Femoral condyles and tibial plateaus are unremarkable. Impression: PAGE2 Signed Report (CONTINUED) FAX: Petr Holley MD R [place]: [facility]: [facility] FAX: Johnny Danielle [place]- [phone] Name: VANESSA VILLEGAS [facility] : 1935 Age/S: 84/F [address] Unit #: [id number] Loc: [place] [address] Phys: Petr Holley MD R1 Acct: [id number] Dis Date: Status: ADM IN PHONE #: [phone] Exam Date: 08/28/2020 0200 FAX #: [phone] Reason: fall, pain with ROM EXAMS: CPT CODE: [id number] XR FEMUR MIN [address] [place] [address] (Continued) Advanced osteoarthritic changes. No fracture. AFTER HOURS SERVICE ON: 08/28/2020 3:29 AM Pelvis and Bilateral Hips, 5 Views Location Code M12 History: fall, pain with ROM Findings: There is osteopenia. There is an impacted right femoral neck fracture. There is bilateral femoral acetabular joint space narrowing. Pubic symphysis and pubic rami are unremarkable. Impression: Impacted mildly displaced right femoral neck fracture. at 0333 R eported and signed by: Kishan Garcia MD CC: Petr Holley MD; Johnny Ruiz Technologist: RT Yuriy (R) Trnscrd Date/Time/By: 08/28/2020 (0333) : By: [email or web address] PAGE 3 Signed Report FAX: Petr Holley MD R [place]: [facility]: [facility] FAX: Johnny Danielle- [phone] Name: VANESSA VILLEGAS [facility] : 1935 Age/S: 84/F [address] Unit #: [id number] Loc: [address] [address] Phys: Petr Holley MD R1 Acct: [id number] Dis Date: Status: ADM IN PHONE #: [phone] Exam Date: 08/28 0200 FAX #: [phone] Reason: fall, pain with ROM EXAMS: CPT CODE: [id number] XR FEMUR MIN [address] [place] [address] (Continued) Orig Print D/T: S: 08/28/2020 (0336) PAGE 4 Signed Report- XR FEMUR MIN 2 VW [id number] 03:33:00 FAX: Petr Holley MD R [place]: [facility]: ADM FAX: Johnny Danielle- [phone] Name: VANESSA VILLEGAS [facility] :1935 Age/S: 84/F [address] Unit #: [id number] Loc: [address] [address] Phys: Petr Holley MD R1 Acct: [id number] Dis Date: Status: ADM IN PHONE #: [phone] Exam Date: 08/28/2020 020 FAX #: [phone] Reason: fall, pain with ROM EXAMS: CPT CODE: [id number] XR FEMUR MIN 2 VWLT 95[address] AFTER HOURS SERVICE ON: 08/28/2020 3:29 AM Left Femur, 4 Views Location Code M12 History: fall, pain with ROM Findings: There is osteopenia. There is no fracture or dislocation. There is no per iosteal elevation. No lytic or blastic lesions. Impression: Osteopenia. No fracture. AFTER HOURS SERVICE ON: 08/28/2020 3:29 AM Right Femur, 4 Views Location Code M12 History: fall, pain with ROM Findings: There is an impacted mildly displaced femoral neckfracture. There is osteopenia. Femoral head is intact. Impression: Mildly displaced impacted right femoral neck fracture. PAGE 1 Signed Report (CONTINUED) FAX: Petr Holley MD [place]: [facility]: [facility] FAX: Johnny Danielle [place]- [phone] Name: VANESSA VILLEGAS [facility] : 1935 Age/S: 84/F [address] Unit #: [id number] Loc: [address] [address] Phys: Petr Holley MD R1 Acct: [id number] Dis Date: Status: ADM IN PHONE #: [phone] Exam Date: 08/28/2020 0200 FAX #: [phone] Reason: fall, pain with ROM EXAMS: CPT CODE: [id number] XR [place]EMUR MIN [address] [place] [address] (Continued) AFTER HOURS SERVICE ON: 08/28/2020 3:29 AM Right Knee, 3 Views Location Code C64Waswafw: fall, pain with ROM Findings: There is osteopenia. Advanced degenerative tricompartmental joint space narrowing is noted. There is no fracture. Femoral condyles and tibial plateaus are unremark able. Impression: Advanced osteoarthritic changes. No fracture. AFTER HOURS SERVICE ON: 08/28/2020 3:29 AM Left Knee, 3 Views Location Code M12 History: fall, pain with ROM Findings: There is osteopenia. Advanced degenerative tricompartmental joint space narrowing is noted. There is no fracture. Femoral condyles and tibial plateaus are unremarkable. Impression: PAGE 2 Signed Report (CONTINUED) FAX: Petr Holley MD [place]: St: [facility] FAX: Johnny Danielle-[phone] Name: VANESSA VILLEGAS [facility] : 1935 Age/S: 84/F [address] Unit #: [id number] Loc: [address] [address] Phys: Petr Holley MD R1 Acct: [id number] Dis Date: Status: ADM IN PHONE #: [phone] Exam Date: 08/28/2020 0200 FAX #: [phone] Reason: fall, pain with ROM EXAMS: CPT CODE: [id number] XR FEMUR MIN [address] [place] [address] (Continued) Advanced osteoarthritic changes. No fracture. AFTER HOURS SERVICE ON: 08/28/2020 3:29 AM Pelvis and Bilateral Hips, 5 Views Location Code M12 History: fall, pain with ROM Findings: There is osteopenia. There is an impacted right femoral neck fracture. There is bilateral femoral acetabular joint space narrowing. Pubic symphysis and pubic rami are unremarkable. Impression: Impacted mildly displaced right femoral neck fracture. at 0333 Reported and signed by: Kishan Garcia MD CC: Petr Holley MD; Johnny Ruiz Technologist: RT Yuriy (Ashlee) Trnscrd Date/Time/By: 08/28/2020 (0333) : By: [email or web address] PAGE 3 Signed Report FAX: Petr Holley MD [place]: St: [facility] FAX: Elvira MissaukeeJohnny avendaño ODETTE- [phone] Name: VANESSA [facility]IL[facility]GAS [facility]: 1935 Age/S: 84/F [address] Unit #: [id number] Loc: [address] [address] Phys: Petr Holley MD R1 Acct: [id number] Dis Date: Status: ADM IN PHONE #: [phone] Exam Date: 08/28 020 FAX #: [phone] Reason: fall, pain with ROM EXAMS: CPT CODE: [id number] XR FEMUR MIN 2VW LT [address] (Continued) Orig Print D/T: S: 08/28/2020 (0336) PAGE 4 Signed ReportLIPID PROFILE (CORONARY RISK)2020-08-28 02:23:00 Test Item Value Reference Range Interpretation Comments TRIGLYCERIDES (test 113 mg/dL TRIGLYCE RIDES code = TRIG) REFERENCE RANGE:Normal: < 150 mg/dLBorderline High: 150-199 mg/dLHigh: 200- 499 mg/dLVery High: >=500 mg/dL CHOLESTEROL (test 210 mg/dL CHOLESTERO L code = CHOL) REFERENCE RANGE:DESIRABLE : < 200 mg/dLBORDER LINE: 200-239 mg/dLHI GH: >=240 mg/dL HDL CHOLESTEROL (test 70 mg/dL 40-59 H code = HDL) LIPOPROTEIN LDL (test 135.47 mg/dL 32-99 H code = LDLC) CORONARY RISK FACTOR 3.00 CHOL/H DL RISK MALE: (test code = RISK) 1/2 AVG 3 .43 FEMALE: 1/2 AVG 3.27 AV G 4.97 AVG 4.44 2 X AVG 9.55 2X AVG 7.0 5 3X AVG 23.39 3X A VG 11.04~~~~~~~~~~ ~~~~~ ~~~~~~~~~~~~~~~ ~~~~~ ~~~~~~~~~~~~~~~ ~~~~~ ~~~~~National Cholesterol Education (NCEP ) Guidelines:~~~~ ~~~~~ ~~~~~~~~~~~~~~~ ~~~~~ ~~~~~~~~~~~~~~~ ~~~~~ ~~~~~~~~~~~ HDL Cholesterol<4 0mg/d L: HDL Choleste rol (Major risk fac tor for CHD)>60mg/d L: HDL Cholesterol (Negative risk factor for CHD)40-59mg/dL: Borderline Risk LDL Cholesterol<1 00mg/ dL: Desirable L DL-C swbbtxwkkfsym01 0-159 mg/dL: Borderli ne High Risk LDL-C otgidakufuznm74 0-189 mg/dL: High ris k LDL-C concentra tion HDL-LDL Cholest gene is affected by a number of facto rs suchas smoking, age and sex.~~~~~~~~~~~ ~~~~~ ~~~~~~~~~~~~~~~ ~~~~~ ~~~~~~~~~~~~~~~ ~~~~~ ~~~~ LIPID PROFILE (CORONARY RISK)2020-08-28 02:11:00 Test Item Value Reference Range Interpretation Comments TRIGLYCERIDES (test 113 mg/dL TRIGLYCE RIDES code = TRIG) REFERENCE RANGE:Normal: < 150 mg/dLBorderline High: 150-199 mg/dLHi gh: 200-499 mg/dLVe ry High: >=500 mg/ dL CHOLESTEROL (test code 210 mg/dL STEFANIE STEROL REFERENCE = CHOL) RANGE:DESIRABLE : < 200 mg/dLBORDERLINE : 200-239 mg/dLHI GH: >=240 mg/dL HDL CHOLESTEROL (test 70 mg/dL 40-59 H code = HDL) LIPOPROTEIN LDL (test mg/dL 32-99 code = LDLC) CORONARY RISK FACTOR 3.00 CHOL/H DL RISK MALE: (test code = RISK) 1/2 AVG 3 .43 FEMALE: 1/2 AVG 3.27 AV G 4.97 AVG 4.44 2X AVG 9.55 2X AVG 7.05 3X AVG 23.39 3X AVG 11.04~~~~~~~~~~ ~~~~~~~ ~~~~~~~~~~~~~~~ ~~~~~~~ ~~~~~~~~~~~~~~~ ~~~~~~[facility] Education (NCEP ) Guidelines:~~~~ ~~~~~~~ ~~~~~~~~~~~~~~~ ~~~~~~~ ~~~~~~~~~~~~~~~ ~~~~~~~ ~~~~~ HDL Cholesterol<4 0mg/dL: HDL Cholesterol (Major risk factor for CHD)>60mg/dL: H DL Cholesterol (Ne gative risk factor for CHD)40-59mg/dL: Borderline Risk LDL Cholesterol<1 00mg/dL : Desirable LDL -C ignkepboenlgm08 0-159mg /dL: Borderline High Risk LDL-C xfnrngyhxsgbe67 0-189mg /dL: High risk LDL-C concentration H DL-LDL Cholesterol is affected by a n umber of factors such as smoking, age an d sex.~~~~~~~~~~~ ~~~~~~~ ~~~~~~~~~~~~~~~ ~~~~~~~ ~~~~~~~~~~~~~~~ ~~~~~ - CT HEAD/BRAIN W/O [id number] 00:44:00 FAX: Johnny Danielle- [phone] [place]: [address] St: REG Name: VANESSA VILLEGAS HCABrid[facility] Bustos : 1935 Age/S: 84/F [address] Unit: [id number] Loc: [place] [address] Phys: Kathie Meza MD Acct: [id number] Dis Date: Status: REG ER PHONE #: [phone] Exam Date: 08/28/2020 0013 FAX #: [phone] Reason: fall EXAMS: CPT CODE: [id number] CT HEAD/BRAIN W/O CONT 01472 Location: H3 CT head, conducted on08/28/20 COMPARISON EXAMS: None of the brain TECHNIQUE: CT examination of the brain was performed without contrast on a helical scanner. Scanning conducted from skull base through the vertex in the axial plane acquiring contiguous 5mm slice thickness . The examination was performed on updated helical CT scanner utilizing low-dose radiation technique. Automatic exposure control timing was utilized to minimize radiation dose. CLINICAL HISTORY: Trauma, headache. Patient presenting to the emergency room. Patient status post fall FINDINGS: No positive mass-effect, midline shift, extra-axial fluid collections or intracranial hemorrhages seen. In particular, no subarachnoid hemorrhage is identified. No intra or extra-axial masses. No skull fracture is seen. The globes are intact. No acute territorial infarction is seen. No cerebral edema is seen. No significant sinus disease is seen. No pneumocephalus is seen or definite acute traumatic injury. There is atrophy age appropriate with significant moderate degree at least of relatively chronic- appearing microvascular changes. IMPRESSION: No acute finding at 0044 Reported and signed by: Aleksandra Sidhu MD CC: Johnny Ruiz Technologist: Janelle Krause; MICHELLE MORSE Trnscrd Dt/Tm: 08/28/2020 (004) [email or web address] Orig Print D/T: S: 08/28/2020 (0047 PAGE 1 Signed Report- CT C-SPINE W/O CONT 2020-08-28 00:41:00 FAX: Johnny Danielle- [phone] [place]: St: REG Name: VANESSA VILLEGAS : 1935 Age/S: 84/F [address] Unit: [id number] Loc: [place] [address] Phys: Kathie Mzea MD Acct: [id number] Dis Date: Status: REG ER PHONE #: [phone] Exam Date: 08/28/2020 0013 FAX #: [phone] Reason: fall EXAMS: CPT CODE: [id number] CT C-SPINE W/O CONT 17804 Location: CT cervical spine, conducted on 08/28/20 TECHNIQUE: CT examination of the cervical spine without contrast was performed jose helical scanner. 2-D imaging was acquired using MPR software on CT workstation by the radiographic technologist. Scanning conducted in axial plane from skull base down to upper thoracic spine with acquisition of 2.5 mm contiguous axial slice thickness acquired . The examination was performed with low radiation dose technique. Automatic exposure control was utilized to reduce radiation dose. Examination conducted on updated helical CT scanner CLINICAL HISTORY: Neck pain. Trauma , patient presenting to the emergency room FINDINGS: There is no acute fracture or subluxation. There is postoperative change with decompressive procedure identified from C3-C4 are downwards to C6-C7. Partial fusion of this spaces at C3-C4 downwards to at least C5-C6 and osseous fusion masses identified involving cervical facet joints. Cervical spondylosis is seen with multilevel foraminal narrowing but without compromise of the canal centrally. Assessment of the skull base unremarkable. Prevertebral soft tissues unremarkable. The atlano axial joint is unremarkable . No pneumothorax or rib fracture is seen IMPRESSION: No acute fracture or traumatic malalignment of the spinal lines Postop changes Multilevel foraminal narrowing due to spondylosis Cervical spondylosis Electronically Signed by Aleksandra Sidhu MD 08/28/2020 at 0041 Reported and signed by: Aleksandra Sidhu MD PAGE 1 Signed Report (CONTINUED) FAX: Johnny Danielle- [phone] [place]: St: REG Name: VANESSA VILLEGAS [facility] Ak[place] : 1935 Age/S: 84/F [address] Unit: [id number] Loc: [place] [address] Phys: Kathie Meza MD Acct: [id number] Dis Date: Status: REG ER PHONE #: [phone] Exam Date: 08/28/2020 0013 FAX #: [phone] Reason: fall EXAMS: CPT CODE: [id number] CT C-SPINE W/O CONT 86163 (Continued) CC: Johnny Stewart Technologist: Janelle Krause; MICHELLE MORSE Trnscrd Dt/Tm: 08/28/2020 (0041) [email or web address] Orig Print D/T: S: 08/28/2020 (0044 PAGE 2 Signed ReportCOMPREHENSIVE METABOLIC [id number] 23:50:00 Test Item Value Reference Range Interpretation Comments SODIUM (test code = 138 mmol/L 137-145 N NA) POTASSIUM (test code 4.9 mmol/L 3.4-5.0 N = K) CHLORIDE (test code 110 mmol/L 98-107 H = CL) CARBON DIOXIDE (test 20 mmol/L 22-30 L code = CO2) GLUCOSE (test code = 117 mg/dL 74-106 H GLU) BLOOD UREA NITROGEN 18 mg/dL 7-17 H (test code = BUN) GLOMERULAR 101 >60 The estimated FILTRATION RATE glomerular f iltration (test code = GFR) rate is co mputed usingpatient ra ce, age (>18), sex, and serum creatinine. If anyof the needed data elements are mi ssing the Laboratory cannot compute an hussain mation of the glomerul ar filtration rate . CREATININE (test 0.6 mg/dL 0.5-1.0 N code = CREAT) TOTAL PROTEIN (test 7.1 g/dL 6.3-8.2 N code = PROT) ALBUMIN (test code = 3.9 g/dL 3.5-5.0 N ALB) CALCIUM (test code = 8.6 mg/dL 8.4-10.2 N CA) BILIRUBIN TOTAL 0.9 mg/dL 0.2-1.3 N "A positive bias may (test code = BILT) occur for patients taking Eltrombo pag(a bone marrow sti mulant used to treat thrombocytopeni a andaplastic ane jan)." BILIRUBIN CONJUGATED 0 mg/dL 0-0.3 N "A posi tive bias may (test code = BILCON) occur f or patients taking Eltrombo pag(a bone marrow sti mulant used to treat thrombocytopeni a andaplastic ane jan)." C ONJUGATE D BILIRUBIN IS THE REPLACEMENT ASS AY FOR DIRECTBILIRUBIN . BILIRUBIN 0.4 mg/dL 0-1.1 N UNCONJUGATED (test code = BILUNC) SGOT/AST (test code 47 U/L 15-46 H = AST) SGPT/ALT (test code 20 U/L 0-34 N = ALT) ALKALINE PHOSPHATASE 50 U/L 38-126 N (test code = ALKP) [id number] 23:50:00 Test Item Value Reference Range Interpretation Comments ALCOHOL (test code = < 10 mg/dL <10 ~~~~~~ ~~~~~~~~~~~~~~~ ALC) ~~~~~~~~~~~~~~~ ~~~~~~~ ~~~~~~~ RESULTS ARE TO BE USED FOR MED ICAL PURPOSES ONLY.F OR LEGAL PURPOSES THE SPECIMEN MUST B E COLLECTED BY A CHAINOF CUSTODY. LEGAL TESTING IS NOT PERFORME D BY THIS FACILITY. ~~~~~~~~~~~~~~~ ~~~~~~~ ~~~~~~~~~~~~~~~ ~~~~~~~ ~~~~~~ PROTHROMBIN [id number] 23:43:00 Test Item Value Reference Range Interpretation Comments PROTHROMBIN TIME 11.3 SECONDS 9.2-12.1 N PATIENT (test code = PTP) INTERNATIONAL NORMAL 1.0 The INR is to be used RATIO (test code = only for monitoring INR) ORAL ANTICOAGULANTTH ERAPY. Indication INR Value1. Prophylaxis/elisa atment of: Venous Thro mbosis, Pulmonary Embol ism 2.0 - 3.02. Prevent ion of systemic emboli sm from: Tissue he art valves 2.0 - 3 .0 Acute myocardia l infarction (to present systemic emboli sm)* 2.0 - 3.0 Valvu lar heart disease 2 .0 - 3.0 Atrial fibrillation 2. 0 - 3.03. Mechanica l prosthetic valv es (high risk) 2.5 - 3.5 * If oral anticoagulant t herapy is elected to preventrecurren t myocardial infa rction, an INR of 2.5-3 .5 isrecommended, consistent with Food and Drug Administrationr ecommen dations. THROMBOPLASTIN TIME [id number] 23:43:00 Test Item Value Reference Range Interpretation Comments THROMBOPLASTIN TIME 18.9 SECONDS 23.4-37.0 L Therap eutic Range PARTIAL (test code = for Hep eden PTT) EFFECTIVE Heparin IU/mL a PTT Seconds0.3 64.3 0.7 88.8 - XR CHEST 1 [id number] 23:34:00 FAX: Johnny Danielle pa- [phone] [place]: St: REG Name: VANESSA VILLEGAS : 1935 Age/S: 84/F [address] Unit #: [id number] Loc: [place] [address] Phys: Kathie Meza MD Acct: [id number] Dis Date: Status: REG ER PHONE #: [phone] Exam Date: 08/27/20202300 FAX #: [phone]: fall EXAMS: CPT CODE: [id number] XR CHEST 1 V 67526 AFTER HOURS SERVICE ON: 08/27/2020 11:34 PM AP Portable Chest Location Code M12 HISTORY: fall FINDINGS: There are extensive coarse chronic appearing bilateral interstitial markings. There are no pleural effusions. There is no pneumothorax. Cardiac silhouette and mediastinum appear within normal limits. IMPRESSION: No active pulmonary findings. at 2334 Reported and signed by: Kishan Garcia MD CC: Johnny Ruiz Technologist: Sarah Sunshine Trnscrd Date/Time/By: 08/27/2020 (4149) : By: [email or web address] PAGE 1 Signed Report FAX: Johnny Danielle- [phone] [place]: St: REG -- Name: VANESSA VILLEGAS : 1935 Age/S: 84/F [address] Unit #: [id number] Loc: [place] [address] Phys: Kathie Meza MD Acct: [id number] Dis Date: Status: REG ER PHONE #: [phone] Exam Date: 08/27/20202300 FAX #: [phone] Reason: fall EXAMS: CPT CODE: [id number] XR CHEST 1 V 58063 (Continued) Orig Print D/T: S: 08/27/2020 (3326) PAGE 2 Signed Report- XR HIP W/PEL UNI 2+V [id number] 23:24:00 FAX: Johnny Danielle- [phone] [place]: St: PRE Name: VANESSA VILLEGAS [facility] : 1935 Age/S: 84/F [address] Unit #: [id number] Loc: [place] [address] Phys: Kathie Meza MD Acct: [id number] Dis Date: Status: PRE ER PHONE #: [phone] Exam Date: 08/27/2020 2301 FAX #: [phone] Reason: fall EXAMS: CPT CODE: [id number] XR HIP W/PEL UNI 2+[place] [address] AFTER HOURS SERVICE ON: 08/27/2020 11:23 PM Right Hip, 3 Views Location Code M12 History: fall Findings: There is an impacted right femoral neck fracture with approximately 1 severe displacement. There is osteopenia. There is narrowing of both femoral acetabular joint spaces. Visualized pubic rami are intact. Impression: Mildly displaced impacted right femoral neck fracture. at 8364 Reported and signed by: Kishan Garcia MD CC: Johnny Ruiz Techno logist: Sarah Sunshine Trnscrd Date/Time/By: 08/27/2020 (8936) : By: [email or web address] PAGE 1 Signed ReportFAX: Johnny Danielle- [phone] [place]: St: PRE Name: VANESSA VILLEGAS : 1935 Age/S: 84/F [address] Unit #: [id number] Loc: [place] [address] Phys: Kathie Meza MD Acct: [id number] Dis Date: Status: PRE ER PHONE #: [phone] Exam Date: 08/27/2020 230 FAX #: [phone] Reason: fall EXAMS: CPT CODE: [id number] XR HIP W/PEL UNI 2+V RT [address] (Continued) Orig Print D/T: S: 08/27/2020 (2025) PAGE 2 Signed ReportCBC W/AUTO [id number] 23:23:00 Test Item Value Reference Range Interpretation Comments WHITE BLOOD CELL (test code = 10.3 x10 3/uL 5.0-12.0 N WBC) RED BLOOD CELL (test code = 4.12 x10 6/uL 4.20-5.40 L RBC) HEMOGLOBIN (test code = HGB) 12.9 g/dL 12.0-16.0 N HEMATOCRIT (test code = HCT) 38.8 % 36.0-46.0 N MEAN CELL VOLUME (test code = 94 fL 81-99 N MCV) MEAN CELL HGB (test code = MCH) 31.3 pg 27-31 H MEAN CELL HGB CONCENTRATION 33.2 g/dL 33-37 N (test code = MCHC) RED CELL DISTRIBUTION WIDTH 11.9 % 11.5-15.5 N (test code = RDW) PLATELET COUNT (test code = 238 x10 3/uL 130-400 N PLT) MEAN PLATELET VOLUME (test code 9.0 fL 9.4-16.4 L = MPV) NEUTROPHIL % (test code = NT%) 78.9 % 43-65 H IMMATURE GRANULOCYTE % (test 0.2 % 0.0-2.0 N code = IG%) LYMPHOCYTE % (test code = LY%) 14.9 % 20.5-45.5 L MONOCYTE % (test code = MO%) 4.9 % 5.5-11.7 L EOSINOPHIL % (test code = EO%) 0.9 % 0.9-2.9 N BASOPHIL % (test code = BA%) 0.2 % 0.2-1.0 N NUCLEATED RBC % (test code = 0.0 % 0-1.0 N NRBC%) NEUTROPHIL # (test code = NT#) 8.13 x10 3/uL 2.2-4.8 H IMMATURE GRANULOCYTE # (test 0.02 x10 3/uL 0-0.03 N code = IG#) LYMPHOCYTE # (test code = LY#) 1.54 x10 3/uL 1.3-2.9 N MONOCYTE # (test code = MO#) 0.51 x10 3/uL 0.3-0.8 N EOSINOPHIL # (test code = EO#) 0.09 x10 3/uL 0.0-0.2 N BASOPHIL # (test code = BA#) 0.02 x10 3/uL 0.0-0.1 N
[2022-08-22] MEDS ORDERED: MORPHINE 2 MG/ML SYR ONE (15:25)
[2022-08-22] MEDS ORDERED: ONDANSETRON 4 MG/2 ML VIAL ONE (15:25)
[2022-08-22 15:52] LABS: Absolute Lymphocytes (CBC) 1.1 K/uL (0.7-4.9); Hematocrit 35.4 % (36.0-45.0); Lymphocytes % 22.9 % (15.3-44.8); MCV 94.7 fL (80-100); MPV 7.3 fL (7.6-11.3); RBC Red Blood Cell Count 3.73 M/uL (3.86-4.86)
[2022-08-22 15:53] LABS: Protime INR 1.07
[2022-08-22 15:56] LABS: Potassium 3.9 mmol/L (3.5-5.1)
--- NOTE | 2022-08-22 15:58 | RAD REPORT ---
EXAM DESCRIPTION: RAD - Humerus Left - 08/22/2022 3:23 pm CLINICAL HISTORY: Left arm pain status post fall FINDINGS: Comminuted markedly displaced fracture humeral head. No dislocation seen
--- NOTE | 2022-08-22 16:13 | ER ---
Nurse's Notes [facility] Name: Rachna Mccullough Age: 86 yrs Sex: Female : 1935 Arrival Date: 08/22/2022 Time: 14:56 Bed 18 Private MD: Diagnosis: Displaced comminuted fracture of shaft of humerus, left arm, initial encounter for closed fracture-Intraarticular Presentation: 08/22 15:06 Chief complaint: EMS states: FALL AT [facility] WITH LEFT SHOULDER bp DEFORMITY. Coronavirus screen: At this time, the client does not indicate any symptoms associated with coronavirus-19. Ebola Screen: No symptoms or risks identified at this time. Initial Sepsis Screen: Does the patient meet any 2 criteria? No. Patient's initial sepsis screen is negative. Does the patient have a suspected source of infection? No. Patient's initial sepsis screen is negative. Risk Assessment: Do you want to hurt yourself or someone else? Patient reports no desire to harm self or others. Onset of symptoms was August 22, 2022 at 14:30. Care prior to arrival: Medication(s) given: FENTANYL 50 MCG IV initiated. 22 GA, in the right antecubital area. 15:06 Method Of Arrival: EMS: [facility] bp 15:06 Acuity: CARLITOS 3 bp Triage Assessment: 15:08 General: Appears in no apparent distress. uncomfortable, Behavior is calm, cooperative. bp Pain: Complains of pain in anterior aspect of left shoulder. EENT: No deficits noted. Neuro: No deficits noted. Cardiovascular: No deficits noted. Respiratory: No deficits noted. GI: No signs and/or symptoms were reported involving the gastrointestinal system. : No signs and/or symptoms were reported regarding the genitourinary system. Derm: No deficits noted. Musculoskeletal: No deficits noted. Historical: - Allergies: 15:08 No Known Allergies; bp - PMHx: 15:08 Hypothyroidism; Hypertensive disorder; Chronic obstructive lung disease; bp Gastroesophageal reflux disease; Dementia; Hypercholesterolemia; - Immunization history:: Adult Immunizations up to date. - Social history:: Smoking status: Patient denies any tobacco usage or history of. - Family history:: not pertinent. - Hospitalizations: : No recent hospitalization is reported. Screenin:10 Abuse screen: Denies threats or abuse. Denies injuries from another. Nutritional bp screening: No deficits noted. Tuberculosis screening: No symptoms or risk factors identified. Fall Risk None identified. Assessment: 15:10 General: SEE TRIAGE NOTE. bp 16:59 Reassessment: Dr. Escamilla updated son Lamine on POC via telephone, cell ph # iw [phone]. 17:04 Reassessment: REPORT TO ROBERT MAYNARD AT [facility]. bp 18:21 Reassessment: No changes from previously documented assessment. TRANSPORT PENDING. bp 18:24 Reassessment: EMS AT B/S, PT ISAC WITH TRANSPORT. bp Vital Signs: 15:06 BP 157 / 67; Pulse 84; Resp 16; Temp 98; Pulse Ox 96% ; bp 17:04 BP 119 / 52; Pulse 64; Resp 16; Pulse Ox 100% ; bp 18:20 BP 103 / 62; Pulse 62; Resp 16; Pulse Ox 99% ; bp ED Course: 14:56 Patient arrived in ED. rn 14:56 Eduardo Escamilla MD is Attending Physician. rn 15:01 Yunior Martines RN is Primary Nurse. bp 15:08 Triage completed. bp 15:08 Arm band placed on. bp 15:10 Patient has correct armband on for positive identification. Bed in low position. Call bp light in reach. Side rails up X2. 15:10 Maintain EMS IV. Dressing intact. Good blood return noted. Site clean \T\ dry. Gauge \T\ bp site: 22 G RIGHT AC. 15:25 XRAY Humerus LEFT In Process Unspecified. EDMS 16:36 initiated transfer to [facility]. bd 16:42 pt accepted in transfer to [facility] er by dr Ruiz admin approval given by Nely Call. 18:25 No provider procedures requiring assistance completed. Patient transferred, IV remains bp in place. Administered Medications: 15:35 Drug: morphine 2 mg Route: IVP; Infused Over: 4 mins; Site: right antecubital; bp 18:26 Follow up: Response: Pain is decreased bp 15:35 Drug: Zofran (Ondansetron) 4 mg Route: IVP; Site: right antecubital; bp 18:26 Follow up: Response: No adverse reaction bp 17:15 Drug: Demerol (meperidine) 12.5 mg Route: IVP; Site: right forearm; bp 18:26 Follow up: Response: No adverse reaction; Pain is decreased bp Medication: 15:10 VIS not applicable for this client. bp Outcome: 16:12 ER care complete, transfer ordered by . rn 18:25 Transferred by ground EMS to [facility], Transfer form completed. bp 18:25 Condition: stable 18:25 Instructed on the need for transfer. 18:43 Patient left the ED. bp Signatures: Dispatcher [employer] EDMS Lacie Chase Irene, RN RN iw Nieto, Roman, MD MD rn Peltier, Brian, ALEDYA RN bp
--- NOTE | 2022-08-22 16:13 | EDPHYS ---
Physician Documentation [facility] Name: Rachna Mccullough Age: 86 yrs Sex: Female : 1935 Arrival Date: 08/22/2022 Time: 14:56 Bed 18 Private MD: ED Physician Eduardo Escamilla HPI: 08/22 16:07 This 86 yrs old Female presents to ER via EMS with complaints of fall, shoulder injury. rn 16:07 The patient or guardian complains of an injury, pain. left shoulder. Onset: The rn symptoms/episode began/occurred just prior to arrival. Modifying factors: the symptoms are alleviated by nothing. The symptoms are aggravated by movement, rotation of arm. Associated signs and symptoms: Pertinent positives: severe pain, Pertinent negatives: abdominal pain, chest pain. Severity of symptoms: At their worst the symptoms were moderate, in the emergency department the symptoms are unchanged. The patient has not experienced similar symptoms in the past. The patient has not recently seen a physician. EMS reports patient was dancing, fell from standing, isolated injury to left shoulder. Has had shoulder dislocation in past. Denies head injury/neck pain/back pain/chest pain/abd pain.. Historical: - Allergies: 15:08 No Known Allergies; bp - PMHx: 15:08 Hypothyroidism; Hypertensive disorder; Chronic obstructive lung disease; bp Gastroesophageal reflux disease; Dementia; Hypercholesterolemia; - Immunization history:: Adult Immunizations up to date. - Social history:: Smoking status: Patient denies any tobacco usage or history of. - Family history:: not pertinent. - Hospitalizations: : No recent hospitalization is reported. ROS: 16:07 Constitutional: Negative for fever, chills, and weight loss, Eyes: Negative for injury, rn pain, redness, and discharge, Neck: Negative for injury, pain, and swelling, Cardiovascular: Negative for chest pain, palpitations, and edema, Respiratory: Negative for shortness of breath, cough, wheezing, and pleuritic chest pain, Abdomen/GI: Negative for abdominal pain, nausea, vomiting, diarrhea, and constipation, Back: Negative for injury and pain, MS/Extremity: + left shoulder/arm injury and pain Skin: Negative for injury, rash, and discoloration, Neuro: Negative for headache, weakness, numbness, tingling, and seizure. Exam: 16:07 Constitutional: This is a well developed, well nourished patient who is awake, alert, rn appears in pain Head/Face: Normocephalic, atraumatic. Neck: No neck tenderness Chest/axilla: Normal chest wall appearance and motion. Nontender with no deformity. No lesions are appreciated. Cardiovascular: Regular rate and rhythm. No pulse deficits. Respiratory: No increased work of breathing, no retractions or nasal flaring. Abdomen/GI: soft, non-tender Back: No spinal tenderness. No costovertebral tenderness. Full range of motion. Skin: Warm, dry MS/ Extremity: Pulses equal, no cyanosis. Neuro: Awake and alert, GCS 15 Vital Signs: 15:06 BP 157 / 67; Pulse 84; Resp 16; Temp 98; Pulse Ox 96% ; bp 17:04 BP 119 / 52; Pulse 64; Resp 16; Pulse Ox 100% ; bp 18:20 BP 103 / 62; Pulse 62; Resp 16; Pulse Ox 99% ; bp MDM: 14:56 Patient medically screened. rn 16:11 Differential diagnosis: Anterior dislocation with fracture, Anterior dislocation rn without fracture, humeral head fracture, glenoid fracture. Data reviewed: vital signs, nurses notes, radiologic studies, plain films, and as a result, I will admit patient. Counseling: I had a detailed discussion with the patient and/or guardian regarding: the historical points, exam findings, and any diagnostic results supporting the discharge/admit diagnosis, lab results, radiology results, the need to transfer to another facility, for higher level of care, [facility] not [facility] have the required specialist. Response to treatment: the patient's symptoms have mildly improved after treatment, and as a result, I will admit patient. 08/22 15:23 Order name: CBC with Diff; Complete Time: 16:00 rn 08/22 15:23 Order name: Basic Metabolic Panel; Complete Time: 16:00 rn 08/22 15:23 Order name: Protime (+inr); Complete Time: 16:00 rn 08/22 15:23 Order name: Ptt, Activated; Complete Time: 16:08/22 16:36 Order name: SARS RAPID iw 08/22 14:57 Order name: IV Start; Complete Time: 15: rn 08/22 14:57 Order name: NPO; Complete Time: 15:01 rn 08/22 14:57 Order name: XRAY Humerus LEFT; Complete Time: 16:00 rn 08/22 15:23 Order name: Sling; Complete Time: 17:33 rn Administered Medications: 15:35 Drug: morphine 2 mg Route: IVP; Infused Over: 4 mins; Site: right antecubital; bp 18:26 Follow up: Response: Pain is decreased bp 15:35 Drug: Zofran (Ondansetron) 4 mg Route: IVP; Site: right antecubital; bp 18:26 Follow up: Response: No adverse reaction bp 17:15 Drug: Demerol (meperidine) 12.5 mg Route: IVP; Site: right forearm; bp 18:26 Follow up: Response: No adverse reaction; Pain is decreased bp Disposition Summary: 08/22/22 16:12 Transfer Ordered Transfer Location: [facility] rn Reason: Higher level of care rn Condition: Stable rn Problem: new rn Symptoms: have improved rn Accepting Physician: (08/22/22 18:43) bp Diagnosis - Displaced comminuted fracture of shaft of humerus, left arm, initial encounter for rn closed fracture - Intraarticular Forms: - Medication Reconciliation Form rn - SBAR form rn Signatures: Dispatcher [employer] EDMS Eduardo Escamilla MD MD rn Peltier, Brian, RN RN bp Corrections: (The following items were deleted from the chart) 16:44 16:15 SARS-COV-2 RT PCR+[id number].LAB.BRZ ordered. EDWY EDWY 18:43 16:12 rn bp
[2022-08-22 16:42] LABS: SARS-CoV-2 Antigen Rapid Res Negative (Negative)
[2022-08-22] MEDS ORDERED: MEPERIDINE HCL 25 MG/ML SYR ONE (17:23)
[2022-08-24 10:23] VITALS: TEMP 98
[2022-08-24 10:26] VITALS: BP 103/62; O2SAT 99
== END 2022-08-22 18:43 | disposition short-term general hospital (02) ==
LOC: ER 14:55
DX: S42.352A Displaced comminuted fracture of shaft of humerus, left arm, initial encounter for closed fracture (principal); Z20.822 Contact with and (suspected) exposure to COVID-19
CPT/HCPCS: 85025; 80048; 36415; 85610; 85730; 73060; 99285; 87811; J2270; J2175; J2405

== ENCOUNTER 2023-02-10 04:13 | Emergency (ER) | payer OTHER ==
--- OUTSIDE RECORDS SUMMARY | 2023-02-10 04:18 | XMS REPORT | Continuity of Care Document ---
:1935 Author Organization [facility] t Address [address] [facility] [address] [place] [address] Care Team Providers Name Role Phone DR MARYURI CHATTERJEE Primary Care Physician Unavailable Lindsay Saeman Attending Clinician Unavailable JESSI WALKER Attending Clinician Unavailable HARLEY MONTANO Attending Clinician Unavailable ADAM YUAN Attending Clinician Unavailable JOAQUINA GATICA Attending Clinician Unavailable Jamari Fraire Attending Clinician Unavailable Sahil Deleon Attending Clinician Unavailable DAVID HUFF Attending Clinician Unavailable [place] Attending Clinician Unavailable Lindsay Seaman Admitting Clinician Unavailable MOE FERNANDO Admitting Clinician Unavailable REYNALDO ELLER Admitting Clinician Unavailable Physician, No Primary or Family Admitting Clinician UnavailDAVID Dyer Admitting Clinician Unavailable Johnny Ruiz PA-C Admitting Clinician Unavailable Payers Payer Name Policy Type Policy Number Effective Date Expiration Date S aurora [id number] 1959 00:00:00 Problems Condition Condition Condition Status [...] DA Active U 2020-11 [facility] No Known DA Active U 2019-11 [facility] No Known DA Active U 2019-11 [facility] Sulfa DA Active NV 2009-11 [facility] (Sulfona 0-19 [facility] mide 00:00: d Antibiot 00 Medical ics) Center Sulfa DA Active NV 2009-11 [facility] (Sulfona 0-19 [facility] mide 00:00: d Antibiot 00 Medical ics) Center CELEBREX DA Active U 2001-0 [facility] 5[facility]21 [facility] 00:00: d 00 Medical Center IVP DYE DA Active U 2001-0 [facility] 5-21 [facility] 00:00: d 00 Medical Center No Known DA Active U 2001-0 [facility] Food 5[facility]21 [facility] Allergie 00:00: d s 00 Medical Center No Known DA Active U 2001-0 [facility] Other 5-21 [facility] Allergie 00:00: d s 00 Medical Center VIOXX DA Active U 2001-[facility] 00:00: d 00 Medical Center Social History Social Habit Start Date Stop Date Quantity Comments Source Sex Assigned At [birth year] [facility] 00:00:00 00:00:00 Smoking Status Start Date Stop Date Source Tobacco smoking consumption [facility] odist [facility] unknown [facility] Medications This patient has no known medications. Immunizations Ordered Immunization Filled Immunization Date Status Commen ts Source Name Name PFIZER COVID-19 MRNA 2021-01-17 Completed Meth odist VACCINATION 00:00:00 [facility] PFIZER COVID-19 MRNA 2021-01-17 Completed Meth odist VACCINATION 00:00:00 [facility] PFIZER COVID-19 MRNA 2021-01-17 Completed Meth odist VACCINATION 00:00:00 [facility] PFIZER COVID-19 MRNA 2020-12-24 Completed Meth odist VACCINATION 00:00:00 [facility] PFIZER COVID-19 MRNA 2020-12-24 Completed Meth odist VACCINATION 00:00:00 [facility] PFIZER COVID-19 MRNA 2020-12-24 Completed Meth odist VACCINATION 00:00:00 Hospital Vital Signs Vital Name Observation Time Observation Value Comments Source Height 2021-09-18 17:38:00 175.26 CM Weight 2021-09-18 17:38:00 61.23 KG BP Systolic 2021-09-18 17:38:00 161 mm[Hg] formerly [facility] (LUF/NICK/SA) BP Diastolic 2021-09-18 17:38:00 91 mm[Hg] formerly [facility] (LUF/NICK/SA) Height 2021-09-18 17:38:00 69 [in_i] formerly [facility] (LUF/NICK/SA) Weight 2021-09-18 17:38:00 135 [lb_av] formerly [facility] (LUF/NICK/SA) BMI (Body Mass Index) 2021-09-18 17:38:00 19.9 kg/m2 [facility] (LUF/NICK/SA) Body Temperature 2021-09-18 17:38:00 98.2 [degF] [facility] (LUF/NICK/SA) Pulse Rate 2021-09-18 17:38:00 97 /min [facility] (LUF/NICK/SA) Respiratory Rate 2021-09-18 17:38:00 20 /min [facility] (LUF/NICK/SA) O2% BldC Oximetry 2021-09-18 17:38:00 95 % [facility] (LUF/NICK/SA) Procedures Procedure Date / Time Performed Performing Clinician Former[facility] [email or web address] [id number] 2020-08-28 00:00:00 JAIRO [facility] Plan of Care Planned Activity Planned Date Details Comments Source Future Scheduled 2022-11-11 SHINGLES VACCINES (1 Met [facility] Test 17:02:35 of 2) [code = SHINGLES VACCINES (1 of 2)] Future Scheduled 2022-11-11 65+ PNEUMOCOCCAL Methodi [facility] Test 17:02:35 VACCINE (1 - PCV) [code = 65+ PNEUMOCOCCAL VACCINE (1 - PCV)] Future Scheduled 2022-11-11 COVID-19 VACCINE (3 - Me [facility] Test 17:02:35 Booster for Pfizer series) [code = COVID-19 VACCINE (3 - Booster for Pfizer series)] Future Scheduled 2022-11-11 INFLUENZA VACCINE Method [facility] Test 17:02:35 [code = INFLUENZA VACCINE] Future Scheduled 2022-08-13 COVID-19 VACCINE (3 - Me [facility] Test 02:31:10 Booster for Pfizer series) [code = COVID-19 VACCINE (3 - Booster for Pfizer series)] Future Scheduled 2022-08-13 INFLUENZA VACCINE Method [facility] Test 02:31:10 [code = INFLUENZA VACCINE] Future Scheduled 2022-08-13 HEPATITIS B VACCINES Met [facility] Test 02:31:10 (1 of 3 - 3-dose series) [code = HEPATITIS B VACCINES (1 of 3 - 3-dose series)] Future Scheduled 2022-08-13 SHINGLES VACCINES (1 Met [facility] Test 02:31:10 of 2) [code = SHINGLES VACCINES (1 of 2)] Future Scheduled 2022-08-13 65+ [facility]10 VACCINE (1 - PCV) [code = 65+ PNEUMOCOCCAL VACCINE (1 - PCV)] Future Scheduled 2022-08-13 COVID-19 VACCINE (3 - Me [facility] Test 02:31:10 Booster for Pfizer series) [code = COVID-19 VACCINE (3 - Booster for Pfizer series)] Future Scheduled 2022-08-13 INFLUENZA VACCINE Method [facility] Test 02:31:10 [code = INFLUENZA VACCINE] Future Scheduled 2022-08-13 HEPATITIS B VACCINES Met [facility] Test 02:31:10 (1 of 3 - 3-dose series) [code = HEPATITIS B VACCINES (1 of 3 - 3-dose series)] Future Scheduled 2022-08-13 SHINGLES VACCINES (1 Met [facility] Test 02:31:10 of 2) [code = SHINGLES VACCINES (1 of 2)] Future Scheduled 2022-08-13 65+ PNEUMOCOCCAL [facility] Test 02:31:10 VACCINE (1 - PCV) [code = 65+ PNEUMOCOCCAL VACCINE (1 - PCV)] Encounters Start End Encounter Admission Attending Care Care Encounter Source Date/Time Date/Time Type Type Clinicians Facility Department ID 2020-08-28 Inpatient EM MEET Seaman [id number] [facility] 00:56:00 Lindsay [facility] 2022-08-22 2022-08-23 Emergency E AARON, [facility] MED [id number] [facility] 16:56:00 21:18:00 JESSI 2022-02-22 2022-03-02 Inpatient E HARLEY MONTANO [facility] MED [id number] [facility] 19:34:00 17:20:00 2022-02-22 2022-02-22 Emergency E LISSY, [facility] 7501 [facility] 15:04:00 17:27:00 ADAM 2022-01-03 2022-02-01 Outpatient GAVI, [facility] [id number] [facility] 14:10:00 23:59:00 JOAQUINA 2021-11-29 2021-12-28 Outpatient GAVI, [facility]NE [facility]NE [id number] [facility] 10:56:00 23:59:00 JOAQUINA 2021-11-21 2021-11-24 Outpatient GAVI, MHNE [facility]NE 9400 [facility] 09:28:00 18:00:00 JOAQUINA 2021-11-08 2021-11-08 Emergency EM Yee, HCAKW LAUREN [id number] [facility] 17:28:00 19:27:[address] 2021-11-08 2021-11-08 Emergency EM Yee, HCAKW LAUREN [id number] [facility] 17:28:00 19:27:[address] 2021-11-06 2021-11-06 Emergency EM Pancho, Sahil HCAKW LAUREN [id number] [facility] 13:10:00 19:00:00 29 [facility] 2021-11-06 2021-11-06 Emergency EM Pancho, Sahil HCAKW LAUREN [id number] [facility] 13:10:00 19:00:00 29 [facility] 2021-09-18 2021-09-18 DISORIENTA 1 DAVID HUFF [facility] [id number] [facility] [address] 17:37:00 18:56:00 TO marc (BRITTA/STACIE Noble/) 2021-09-182021-09-18 Inpatient [facility] [id number] 00:00:00 00:00:00 SHUBHAM FRANKLIN [id number] a Demetra N, [id number] 0[address]49 [address] [place], (LUF[place] [address] 2021-09-18 2021-09-18 Inpatient [facility] [id number] 00:00:00 00:00:00 SHUBHAM FRANKLIN [id number] 8 Lucarine N, [address] [id number] [address] 9cbb58 [address] [place], ([place] [address] 2021-09-18 2021-09-18 Inpatient [facility] [id number] [facility] 00:[facility]:00 00:00:00 SHUBHAM FRANKLIN [id number]- a Demetra N, [address] [id number] [address] f02bb3 [address] [place], (LUF[place] [address] 2021-01-17 2021-01-17 Outpatient [facility] [id number] [place] 00:00:00 00:00:[address] 2020-12-24 2020-12-24 Outpatient [facility] [id number] [place] 00:00:00 00:00:[address] 2020-10-14 2020-10-14 Outpatient MEET Carpenter RADI [id number] [facility] 11:15:00 11:15:00 El Gonzales [facility] Results Test Description Test Time Test Comments Results Result Sour e Comments - XR WRIST 2 VIEWS 2021-11-06 RT 17:39:00 [facility] : 1935 Sex: F FAX: Nikki Perez MD [phone] [place]: St: REG Name: VANESSA VILLEGAS : 1935 Age/S: 86/F [address] Unit #: [id number] Loc: [place] [address] Phys: Nikki Perez MD Acct: [id number] Dis Date: Status: REG ER PHONE #: [phone] Exam Date: 11/06/20211729 FAX #: [phone] Reason: POST REDUCTION EXAMS: CPT CODE: [id number] XR WRIST [address] [place] [address] Location: A1 EXAM: - XR WRIST 2 [...] Perez MD Technologist: Bonnie Caal Date/Time/By: 11/06/2021 (1738) : By: [email or web address] PAGE 1 Signed Report FAX: Nikki Perez MD [phone] [place]: St: REG Name: VANESSA VILLEGAS : 1935 Age/S: 86/F [address] Unit #: [id number] Loc: [place] [address] Phys: Nikki Perez MD Acct: [id number] Dis Date: Status: REG ER PHONE #: [phone] Exam Date: 11/06/2021 1730 FAX #: [phone] Reason: POST REDUCTION EXAMS: CPT CODE: [id number] XR WRIST [address] [place] [address] <Continued> Orig Print D/T: S: 11/06/2021 (0164) PAGE 2 Signed Report - XR WRIST 2 VIEWS 2021-11-06 RT 17:39:00 [facility] AKASH[facility]: VANESSA VILLEGAS : 1935 Sex: F FAX: Nikki Perez MD [phone] [place]: St: DEP Name: VANESSA VILLEGAS : 1935 Age/S: 86/F [address] Unit #: [id number] Loc: [place] [address] Phys: Nikki Perez MD Acct: [id number] Dis Date: Status: [facility] ER PHONE #: [phone] Exam Date: 11/06/20211729 FAX #: [phone] Reason: POST REDUCTION EXAMS: CPT CODE: [id number] XR WRIST [address] [place] [address] Location: A1 EXAM: - XR WRIST 2 [...] IMPRESSION: Slight interval improvement in alignment. at 2670 Reported and signed by: Bakari Saucedo MD CC: Nikki Perez MD Technologist: Bonnie Corbettsdchris Date/Time/By: 11/06/2021 (4350) : By: [email or web address] PAGE 1 Signed Report FAX: Nikki Perez MD [phone] [place]: St: DEP Name: VANESSA VILLEGAS : 1935 Age/S: 86/F [address] Unit #: [id number] Loc: [place] [address] Phys: Nikki Perez MD Acct: [id number] Dis Date: Status: [facility] ER PHONE #: [phone] Exam Date: 11/06/20211729 FAX #: [phone] Reason: POST REDUCTION EXAMS: CPT CODE: [id number] XR WRIST [address] [place] [address] (Continued) Orig Print D/T: S: 11/06/2021 (1742) PAGE 2 Signed Report - XR HIP BI 2021-11-06 W/PELVIS 15:33:00 [facility] : 1935 Sex: F FAX: Nikki Perez MD [phone] [place]: St: PRE FAX: Grey Mandel DO Name: VANESSA VILLEGAS [facility] : 1935 Age/S: 86/F [address] Unit #: [id number] Loc: [place] [address] Phys: Grey Mandel DO Acct: [id number] Dis Date: Status: PRE ER PHONE #: [phone] Exam Date: 11/06/2021 1459 FAX #: [phone] Reason: fall/head stiek/ neck pain/pain pain/hip pain/ EXAMS: CPT CODE: [id number] XR HIP BI W/PELVIS 15184 EXAM: - XR HIP BI W/PELVIS HISTORY: [...] Mandel DO Technologist: Bonnie Caal Date/Time/By: 11/06/2021 (1993) : By: [email or web address] PAGE 1 Signed Report FAX: Nikki Perez MD [phone] [place]: St: PRE FAX: Grey Mandel DO Name: VANESSA VILLEGAS [facility] : 1935 Age/S: 86/F [address] Unit #: [id number] Loc: [place] [address] Phys: Grey Mandel DO R2 Acct: [id number] Dis Date: Status: PRE ER PHONE #: [phone] Exam Date: 11/06/2021 1459 FAX #: [phone] Reason: fall/head stiek/ neck pain/pain pain/hip pain/ EXAMS: CPT CODE: [id number] XR HIP BI W/PELVIS 44748 <Continued> Orig Print D/T: S: 11/06/2021 (8701) PAGE 2 Signed Report - XR HIP BI 2021-11-06 W/PELVIS 15:33:00 [facility] : 1935 Sex: F FAX: Nikki Perez MD [phone] [place]: [facility]: [facility] FAX: Grey Mandel DO Name: VANESSA VILLEGAS : 1935 Age/S: 86/F [address] Unit #: [id number] Loc: [place] [address] Phys: Grey Mandel DO R2 Acct: [id number] Dis Date: Status: DEP ER PHONE #: [phone] Exam Date: 11/06/2021 1459 FAX #: [phone] Reason: fall/head stiek/ neck pain/pain pain/hip pain/ EXAMS: CPT CODE: [id number] XR HIP BI W/PELVIS 84804 EXAM: - XR HIP BI W/PELVIS HISTORY: [...] 1 Signed Report FAX: Nikki Perez MD [phone] [place]: [facility]: [facility] FAX: Grey Mandel DO Name: VANESSA VILLEGAS : 1935 Age/S: 86/F [address] Unit #: [id number] Loc: [place] [address] Phys: Grey Mandel DO R2 Acct: [id number] Dis Date: Status: DEP ER PHONE #: [phone] Exam Date: 11/06/2021 1205 FAX #: [phone] Reason: fall/head stiek/ neck pain/pain pain/hip pain/ EXAMS: CPT CODE: [id number] XR HIP BI W/PELVIS 12747 (Continued) Orig Print D/T: S: 11/06/2021 (1536) PAGE 2 Signed Report - XR HAND 3 + V RT 2021-11-06 15:31:00 [facility] : 1935 Sex: F FAX: Nikki Perez MD [phone] [place]: St: PRE FAX: Grey Mandel DO Name: VANESSA VILLEGAS : 1935 Age/S: 86/F [address] Unit #: [id number] Loc: [place] [address] Phys: Grey Mandel Acct: [id number] Dis Date: Status: PRE ER PHONE #: [phone] Exam Date: 11/06/2021 1459 FAX #: [phone] Reason: fall/head stiek/ neck pain/pain pain/hip pain/ EXAMS: CPT CODE: [id number] XR HAND 3 + [place] [address] EXAM: - XR WRIST 3 + V [...] Mandel DO Technologist: Bonnie Caal Date/Time/By: 11/06/2021 (1531) : By: [email or web address] PAGE 1 Signed Report FAX: Nikki Perez MD [phone] [place]: St: PRE FAX: Grey Mandel DO Name: VANESSA VILLEGAS : 1935 Age/S: 86/F [address] Unit #: [id number] Loc: [place] [address] Phys: Grey Mandel DO R2 Acct: [id number] Dis Date: Status: PRE ER PHONE #: [phone] Exam Date: 11/06/20211458 FAX #: [phone] Reason: fall/head stiek/ neck pain/pain pain/hip pain/ EXAMS: CPT CODE: [id number] XR HAND 3 + [place] [address] <Continued> Orig Print D/T: S: 11/06/2021 (3055) PAGE 2 Signed Report - XR FOREARM 2 2021-11-06 VIEWS RT 15:31:00 [facility] : 1935 Sex: F FAX: Nikki Perez MD [phone] [place]: St: PRE FAX: Grey Mandel DO Name: VANESSA VILLEGAS [facility] : 1935 Age/S: 86/F [address] Unit #: [id number] Loc: [place] [address] Phys: Grey Mandel Acct: [id number] Dis Date: Status: PRE ER PHONE #: [phone] Exam Date: 11/06/20211458 FAX #: [phone] Reason: fall/head stiek/ neck pain/pain pain/hip pain/ EXAMS: CPT CODE: [id number] XR [place] [address] [place] [address] EXAM: - XR WRIST 3 + V [...] MD; Grey Mandel DO Technologist: [facility] Date/Time/By: 11/06/2021 (997) : By: [email or web address] PAGE 1 Signed Report FAX: Nikki Perez MD [phone] [place]: St: PRE FAX: Grey Mandel DO Name: VANESSA VILLEGAS : 1935 Age/S: 86/F [address] Unit #: [id number] Loc: [place] [address] Phys: Grey Mandel Acct: [id number] Dis Date: Status: PRE ER PHONE #: [phone] Exam Date: 11/06/2021 6990 FAX #: [phone] Reason: fall/head stiek/ neck pain/pain pain/hip pain/ EXAMS: CPT CODE: [id number] XR [place] [address] [place] [address] <Continued> Orig Print D/T: S: 11/06/2021 (4186) PAGE 2 Signed Report - XR WRIST 3 + V 2021-11-06 RT 15:31:00 [facility] : 1935 Sex: F FAX: Nikki Perez MD [phone] [place]: St: PRE FAX: Grey Mandel DO Name: VANESSA VILLEGAS [facility] : 1935 Age/S: 86/F [address] Unit #: [id number] Loc: [place] [address] Phys: Grey Mandel DO R2 Acct: [id number] Dis Date: Status: PRE ER PHONE #: [phone] Exam Date: 11/06/2021 1467 FAX #: [phone] Reason: fall/head stiek/ neck pain/pain pain/hip pain/ EXAMS: CPT CODE: [id number] XR WRIST 3 + V RT [address]292 EXAM: - XR WRIST 3 + V [...] Mandel DO Technologist: Bonnie Caal Date/Time/By: 11/06/2021 (510) : By: [email or web address] PAGE 1 Signed Report FAX: Nikki Perez MD [phone] [place]: St: PRE FAX: Grey Mandel DO Name: VANESSA VILLEGAS [facility] : 1935 Age/S: 86/F [address] Unit #: [id number] Loc: [place] [address] Phys: Grey Mandel DO R2 Acct: [id number] Dis Date: Status: PRE ER PHONE #: [phone] Exam Date: 11/06/2021 1459 FAX #: [phone] Reason: fall/head stiek/ neck pain/pain pain/hip pain/ EXAMS: CPT CODE: [id number] XR WRIST 3 + V [place] [address] <Continued> Orig Print D/T: S: 11/06/2021 (3520) PAGE 2 Signed Report - XR HAND 3 + V RT 2021-11-06 15:31:00 [facility] : 1935 Sex: F FAX: Nikki Perez MD [phone] [place]: [facility] FAX: Grey Mandel DO Name: VANESSA VILLEGAS : 1935 Age/S: 86/F [address] Unit #: [id number] Loc: [place] [address] Phys: Grey Mandel DO R2 Acct: [id number] Dis Date: Status: DEP ER PHONE #: [phone] Exam Date: 11/06/2021 1459 FAX #: [phone] Reason: fall/head stiek/ neck pain/pain pain/hip pain/ EXAMS: CPT CODE: [id number] XR HAND 3 + V [place] [address]442 EXAM: - XR WRIST 3 + V [...] MD; Grey Mandel DO Technologist: Bonnie Zamora Trnsdrd Date/Time/By: 11/06/2021 (153) : By: [email or web address] PAGE 1 Signed Report FAX: Nikki Perez MD [phone] [place]: [facility]: [facility] FAX: Grey Mandel DO Name: VANESSA VILLEGAS : 1935 Age/S: 86/F [address] Unit #: [id number] Loc: [place] [address] Phys: Grey Mandel Acct: [id number] Dis Date: Status: DEP ER PHONE #: [phone] Exam Date: 11/06/2021 1459 FAX #: [phone] Reason: fall/head stiek/ neck pain/pain pain/hip pain/ EXAMS: CPT CODE: [id number] XR HAND 3 + V RT 59989 (Continued) Orig Print D/T: S: 11/06/2021 (1535) PAGE 2 Signed Report - XR WRIST 3 + V 2021-11-06 RT 15:31:00 [facility] AKASH[facility]: VANESSA VILLEGAS : 1935 Sex: F FAX: Nikki Perez MD [phone] [place]: St: DEP FAX: Grey Mandel DO Name: VANESSA VILLEGAS : 1935 Age/S: 86/F [address] Unit #: [id number] Loc: [place] [address] Phys: Grey Mandel Acct: [id number] Dis Date: Status: [facility] ER PHONE #: [phone] Exam Date: 11/06/2021 1459 FAX #: [phone] Reason: fall/head stiek/ neck pain/pain pain/hip pain/ EXAMS: CPT CODE: [id number] XR WRIST 3 + V RT [address]56 EXAM: - XR WRIST 3 + V [...] Perez MD; Grey Mandel DO Technologist: Bonnie Corbettscchris Date/Time/By: 11/06/2021 (1531) : By: [email or web address] PAGE 1 Signed Report FAX: Nikki Perez MD [phone] [place]: St: [facility] FAX: Grey Mandel DO Name: VANESSA VILLEGAS : 1935 Age/S: 86/F [address] Unit #: [id number] Loc: [place] [address] Phys: Grey Mandel Acct: [id number] Dis Date: Status: [facility] ER PHONE #: [phone] Exam Date: 11/06/20211458 FAX #: [phone] Reason: fall/head stiek/ neck pain/pain pain/hip pain/ EXAMS: CPT CODE: [id number] XR WRIST 3 + V [place] 85646 (Continued) Orig Print D/T: S: 11/06/2021 (9961) PAGE 2 Signed Report - XR FOREARM 2 2021-11-06 VIEWS RT 15:31:00 [facility] : 1935 Sex: F FAX: Nikki Perez MD [phone] [place]: St: [facility] FAX: Grey Mandel DO Name: VANESSA VILLEGAS [facility] : 1935 Age/S: 86/F [address] Unit #: [id number] Loc: [place] [address] Phys: Grey Mandel Acct: [id number] Dis Date: Status: DEP ER PHONE #: [phone] Exam Date: 11/06/20211458 FAX #: [phone] Reason: fall/head stiek/ neck pain/pain pain/hip pain/ EXAMS: CPT CODE: [id number] XR FOREARM [address] [place] [address] EXAM: - XR WRIST 3 + V [...] MD; Grey Mandel DO Technologist: Bonnie Zamora Trnsdrd Date/Time/By: 11/06/2021 (153) : By: [email or web address] PAGE 1 Signed Report FAX: Nikki Perez MD [phone] [place]: St: DEP FAX: Grey Mandel DO Name: VANESSA VILLEGAS : 1935 Age/S: 86/F [address] Unit #: [id number] Loc: [place] [address] Phys: Grey Mandel DO R2 Acct: [id number] Dis Date: Status: DEP ER PHONE #: [phone] Exam Date: 11/06/2021 1144 FAX #: [phone] Reason: fall/head stiek/ neck pain/pain pain/hip pain/ EXAMS: CPT CODE: [id number] XR [place]EARM [address] [place] [address] (Continued) Orig Print D/T: S: 11/06/2021 (1535) PAGE 2 Signed Report - XR KNEE 3 V RT 2021-11-06 15:25:00 [facility] O[facility]: VANESSA VILLEGAS : 1935 Sex: F FAX: Nikki Perez MD [phone] [place]: St: PRE FAX: Grey Mandel DO Name: VANESSA VILLEGAS 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 No fracture or dislocation identified. Possible joint effusion. IMPRESSION: No acute osseous abnormality identified. at 1525 Reported and signed by: Jaylon Angulo MD CC: Nikki Perez MD; Grey Mandel DO Technologist: Bonnie Zamora Trnscrd Date/Time/By: 11/06/2021 (1525) : By: [email or web address] PAGE 1 Signed Report FAX: Nikki Perez MD [phone] [place]: St: PRE FAX: Grey Mandel DO Name: VANESSA VILLEGAS [facility] [place] : 1935 Age/S: 86/F [address] Unit #: [id number] Loc: [place] [address] Phys: MinisterioGrey FERREIRA Acct: [id number] Dis Date: Status: PRE ER PHONE #: [phone] Exam Date: 11/06/2021 1459 FAX #: [phone] Reason: fall/head stiek/ neck pain/pain pain/hip pain/ EXAMS: CPT CODE: [id number] XR KNEE 3 V RT [id number] <Continued> Orig Print D/T: S: 11/06/2021 (1528) PAGE 2 Signed Report - XR KNEE 3 V RT 2021-11-06 15:25:00 [facility] : 1935 Sex: F FAX: Nikki Perez MD [phone] [place]: [facility]: DEP FAX: Grey Mandel DO Name: VANESSA VILLEGAS : 1935 Age/S: 86/F [address] Unit #: [id number] Loc: [place] [address] Phys: MinisterioGrey DO Jerez Acct: [id number] Dis Date: Status: DEP ER PHONE #: [phone] Exam Date: 11/06/2021 5891 FAX #: [phone] Reason: fall/head stiek/ neck pain/pain pain/hip pain/ EXAMS: CPT CODE: [id number] XR KNEE 3 V RT 32054 EXAMINATION(S): 3 views right knee INDICATION: Right [...] 1 Signed Report FAX: Nikki Perez MD [phone] [place]: [facility]: [facility] FAX: Grey Mandel DO Name: VANESSA VILLEGAS : 1935 Age/S: 86/F [address] Unit #: [id number] Loc: [place] [address] Phys: Grey Mandel Acct: [id number] Dis Date: Status: DEP ER PHONE #: [phone] Exam Date: 11/06/2021 1459 FAX #: [phone] Reason: fall/head stiek/ neck pain/pain pain/hip pain/ EXAMS: CPT CODE: [id number] XR KNEE 3 V RT 43490 (Continued) Orig Print D/T: S: 11/06/2021 (1528) PAGE 2 Signed Report - CT T-SPINE W/O 2021-11-06 CONTRAST 14:53:00 [facility] : 1935 Sex: F FAX: Nikki Perez MD [phone] [place]: St: PRE FAX: Grey Mandel DO Name: VANESSA VILLEGAS [facility] : 1935 Age/S: 86/F [address] Unit: [id number] Loc: [place] [address] Phys: Grey Mandel Acct: [id number] Dis Date: Status: PRE ER PHONE #: [phone] Exam Date: 11/06/2021 1435 FAX #: [phone] Reason: fall/head stiek/ neck pain/pain pain/hip pain/ EXAMS: CPT CODE: [id number] CT T-SPINE W/O CONTRAST 16176 Exam: CT of the thoracic and lumbar [...] Signed Report (CONTINUED) FAX: Nikki Perez MD [phone] [place]: St: PRE FAX: Grey Mandel DO Name: VANESSA VILLEGAS [facility] [place] : 1935 Age/S: 86/F [address] Unit: [id number] Loc: [place] [address] Phys: Grey Mandel DO R2 Acct: [id number] Dis Date: Status: PRE ER PHONE #: [phone] Exam Date: 11/06/2021 1435 FAX #: [phone] Reason: fall/head stiek/ neck pain/pain pain/hip pain/ EXAMS: CPT CODE: [id number] CT T-SPINE W/O CONTRAST 81555 <Continued> 1. Diffuse osteopenia. No displaced fracture or dislocation. 2. Exaggeration of normal thoracic kyphosis. Vertebral body heights are maintained. 3. 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 Foraminal narrowing is present from T6-T7 through L5-S1. at 1453 Reported and signed by: Oscar Smith MD CC: Nikki Perez MD; Grey Mandel DO Technologist: Sandra Patino Trnscrd Dt/Tm: 11/06/2021 (6677) [email or web address] Orig Print D/T: S: 11/06/2021 (7326 PAGE 2 Signed Report - CT L-SPINE W/O 2021-11-06 CONTRAST 14:53:00 [facility] : 1935 Sex: F FAX: Nikki Perez MD [phone] [place]: St: PRE FAX: Rowlands,Grey DO Name: VANESSA VILLEGAS : 1935 Age/S: 86/F [address] Unit: [id number] Loc: [place] [address] Phys: Grey Mandel DO R2 Acct: [id number] Dis Date: Status: PRE ER PHONE #: [phone] Exam Date: 11/06/2021 1435 FAX #: [phone] Reason: fall/head stiek/ neck pain/pain pain/hip pain/ EXAMS: CPT CODE: [id number] CT L-SPINE W/O CONTRAST 61729 Exam: CT of the thoracic and lumbar [...] Signed Report (CONTINUED) FAX: Nikki Perez MD [phone] [place]: St: PRE FAX: Grey Mandel DO Name: VANESSA VILLEGAS [place] : 1935 Age/S: 86/F [address] Unit: [id number] Loc: [place] [address] Phys: Grey Mandel DO R2 Acct: [id number] Dis Date: Status: PRE ER PHONE #: [phone] Exam Date: 11/06/2021 1435 FAX #: [phone] Reason: fall/head stiek/ neck pain/pain pain/hip pain/ EXAMS: CPT CODE: [id number] CT L-SPINE W/O CONTRAST 15144 <Continued> 1. Diffuse osteopenia. No displaced fracture or dislocation. 2. Exaggeration of normal thoracic kyphosis. Vertebral body heights are maintained. 3. 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 Foraminal narrowing is present from T6-T7 through L5-S1. at 1453 Reported and signed by: Oscar Smith MD CC: Nikki Perez MD; Grey Mandel DO Technologist: Sandra Patino Trnscrd Dt/Tm: 11/06/2021 (6766) [email or web address] Orig Print D/T: S: 11/06/2021 (1846 PAGE 2 Signed Report - CT T-SPINE W/O 2021-11-06 CONTRAST 14:53:00 [facility] : 1935 Sex: F FAX: Nikki Perez MD [phone] [place]: St: DEP FAX: Grey Mandel DO Name: VANESSA VILLEGAS [facility] : 1935 Age/S: 86/F [address] Unit: [id number] Loc: [place] [address] Phys: Grey Mandel DO Acct: [id number] Dis Date: Status: DEP ER PHONE #: [phone] Exam Date: 11/06/2021 1435 FAX #: [phone] Reason: fall/head stiek/ neck pain/pain pain/hip pain/ EXAMS: CPT CODE: [id number] CT T-SPINE W/O CONTRAST 05855 Exam: CT of the thoracic and lumbar [...] Signed Report (CONTINUED) FAX: Nikki Perez MD [phone] [place]: St: [facility] FAX: Grey Mandel DO Name: VANESSA VILLEGAS : 1935 Age/S: 86/F [address] Unit: [id number] Loc: [place] [address] Phys: Grey Mandel DO R2 Acct: [id number] Dis Date: Status: DEP ER PHONE #: [phone] Exam Date: 11/06/2021 1435 FAX #: [phone] Reason: fall/head stiek/ neck pain/pain pain/hip pain/ EXAMS: CPT CODE: [id number] CT T-SPINE W/O CONTRAST 99040 (Continued) 1. Diffuse osteopenia. No displaced fracture or dislocation. 2. Exaggeration of normal thoracic kyphosis. Vertebral body heights are maintained. 3. 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 Foraminal narrowing is present from T6-T7 through L5-S1. at 8874 Reported and signed by: Oscar Smith MD CC: Nikki Perez MD; Grey Mandel DO Technologist: Sandra Patino Trnscrd Dt/Tm: 11/06/2021 (6200) [email or web address] Orig Print D/T: S: 11/06/2021 (7112 PAGE 2 Signed Report - CT L-SPINE W/O 2021-11-06 CONTRAST 14:53:00 [facility] : 1935 Sex: F FAX: Nikki Perez MD [phone] [place]: St: [facility] FAX: Grey Mandel DO Name: VANESSA VILLEGAS : 1935 Age/S: 86/F [address] Unit: [id number] Loc: [place] [address] Phys: Grey Mandel DO R2 Acct: [id number] Dis Date: Status: DEP ER PHONE #: [phone] Exam Date: 11/06/2021 1435 FAX #: [phone] Reason: fall/head stiek/ neck pain/pain pain/hip pain/ EXAMS: CPT CODE: [id number] CT L-SPINE W/O CONTRAST 89143 Exam: CT of the thoracic and lumbar [...] Signed Report (CONTINUED) FAX: Nikki Perez MD [phone] [place]: St: DEP FAX: Grey Mandel DO Name: VANESSA VILLEGAS : 1935 Age/S: 86/F [address] Unit: [id number] Loc: [place] [address] Phys: Grey Mandel DO R2 Acct: [id number] Dis Date: Status: DEP ER PHONE #: [phone] Exam Date: 11/06/2021 1435 FAX #: [phone] Reason: fall/head stiek/ neck pain/pain pain/hip pain/ EXAMS: CPT CODE: [id number] CT L-SPINE W/O CONTRAST 61500 (Continued) 1. Diffuse osteopenia. No displaced fracture or dislocation. 2. Exaggeration of normal thoracic kyphosis. Vertebral body heights are maintained. 3. 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 Foraminal narrowing is present from T6-T7 through L5-S1. at 6057 Reported and signed by: Oscar Smith MD CC: Nikki Perez MD; Grey Mandel DO Technologist: Sandra Patino Trnscrd Dt/Tm: 11/06/2021 (8043) [email or web address] Orig Print D/T: S: 11/06/2021 (3379 PAGE 2 Signed Report - CT C-SPINE W/O 2021-11-06 CONT 14:46:00 [facility] : 1935 Sex: F FAX: Nikki Perez MD [phone] [place]: St: PRE FAX: Grey Mandel DO Name: VANESSA VILLEGAS [facility] : 1935 Age/S: 86/F [address] Unit: [id number] Loc: [place] [address] Phys: Grey Mandel R2 Acct: [id number] Dis Date: Status: PRE ER PHONE #: [phone] Exam Date: 11/06/2021 1435 FAX #: [phone] Reason: fall/head stiek/ neck pain/pain pain/hip pain/ EXAMS: CPT CODE: [id number] CT C-SPINE W/O CONT 39795 EXAM: 1. CT Head without contrast 2. [...] Signed Report (CONTINUED) FAX: Nikki Perez MD [phone] [place]: St: PRE FAX: Grey Mandel DO Name: VANESSA VILLEGAS : 1935 Age/S: 86/F [address] Unit: [id number] Loc: [place] [address] Phys: Grey Mandel DO R2 Acct: [id number] Dis Date: Status: PRE ER PHONE #: [phone] Exam Date: 11/06/2021 1435 FAX #: [phone] Reason: fall/head stiek/ neck pain/pain pain/hip pain/ EXAMS: CPT CODE: [id number] CT C-SPINE W/O CONT 36813 <Continued> through C6. There is acquired, osseous [...] Signed Report (CONTINUED) FAX: Nikki Perez MD [phone] [place]: St: PRE FAX: Grey Mandel DO Name: VANES[facility]ILLEGAS [facility] [place] : 1935 Age/S: 86/F [address] Unit: [id number] Loc: [place] [address] Phys: Grey Mandel DO R2 Acct: [id number] Dis Date: Status: PRE ER PHONE #: [phone] Exam Date: 11/06/2021 1435 FAX #: [phone] Reason: fall/head stiek/ neck pain/pain pain/hip pain/ EXAMS: CPT CODE: [id number] CT C-SPINE W/O CONT 71867 <Continued> Correlation with prior ultrasound if available. Consider further characterization with ultrasound on nonemergent basis if not. at 1447 Reported and signed by: Oscar Smith MD CC: Nikki Perez MD; Grey Mandel DO Technologist: Sandra aPtino Trnscrd Dt/Tm: 11/06/2021 (4424) [email or web address] Orig Print D/T: S: 11/06/2021 (0599 PAGE 3 Signed Report - CT HEAD/BRAIN 2021-11-06 W/O CONT 14:46:00 [facility] : 1935 Sex: F FAX: Nikki Perez MD [phone] [place]: St: PRE FAX: Grey Mandel DO Name: VANESSA VILLEGAS [facility] : 1935 Age/S: 86/F [address] Unit: [id number] Loc: [place] [address] Phys: Grey Mandel Acct: [id number] Dis Date: Status: PRE ER PHONE #: [phone] Exam Date: 11/06/2021 1435 FAX #: [phone] Reason: fall/head stiek/ neck pain/pain pain/hip pain/ EXAMS: CPT CODE: [id number] CT HEAD/BRAIN W/O CONT 25337 EXAM: 1. CT Head without contrast 2. [...] Signed Report (CONTINUED) FAX: Nikki Perez MD [phone] [place]: St: PRE FAX: Grey Mandel DO Name: VANESSA VILLEGAS : 1935 Age/S: 86/F [address] Unit: [id number] Loc: [place] [address] Phys: Grey Mandel DO R2 Acct: [id number] Dis Date: Status: PRE ER PHONE #: [phone] Exam Date: 11/06/2021 1435 FAX #: [phone] Reason: fall/head stiek/ neck pain/pain pain/hip pain/ EXAMS: CPT CODE: [id number] CT HEAD/BRAIN W/O CONT 80672 <Continued> through C6. There is acquired, osseous [...] Signed Report (CONTINUED) FAX: Nikki Perez MD [phone] [place]: St: PRE FAX: Grey Mandel DO Name: VANESSA VILLEGAS [facility] [place] : 1935 Age/S: 86/F [address] Unit: [id number] Loc: [place] [address] Phys: Grey Mandel DO Meri Acct: [id number] Dis Date: Status: PRE ER PHONE #: [phone] Exam Date: 11/06/2021 1435 FAX #: [phone] Reason: fall/head stiek/ neck pain/pain pain/hip pain/ EXAMS: CPT CODE: [id number] CT HEAD/BRAIN W/O CONT 58640 <Continued> Correlation with prior ultrasound if available. Consider further characterization with ultrasound on nonemergent basis if not. at 1444 Reported and signed by: Oscar Smith MD CC: Nikki Perez MD; Grey Mandel DO Technologist: Sandra Patino Trnscrd Dt/Tm: 11/06/2021 (1446) [email or web address] Orig Print D/T: S: 11/06/2021 (8729 PAGE 3 Signed Report - CT HEAD/BRAIN 2021-11-06 W/O CONT 14:46:00 [facility] : 1935 Sex: F FAX: Nikki Perez MD [phone] [place]: St: [facility] FAX: Grey Mandel DO Name: VANESSA VILLEGAS : 1935 Age/S: 86/F [address] Unit: [id number] Loc: [place] [address] Phys: Grey Mandel DO R2 Acct: [id number] Dis Date: Status: DEP ER PHONE #: [phone] Exam Date: 11/06/2021 1435 FAX #: [phone] Reason: fall/head stiek/ neck pain/pain pain/hip pain/ EXAMS: CPT CODE: [id number] CT HEAD/BRAIN W/O CONT 82656 EXAM: 1. CT Head without contrast 2. [...] Signed Report (CONTINUED) FAX: Nikki Perez MD [phone] [place]: St: [facility] FAX: Grey Mandel DO Name: VANESSA VILLEGAS : 1935 Age/S: 86/F [address] Unit: [id number] Loc: [place] [address] Phys: Grey Mandel DO R2 Acct: [id number] Dis Date: Status: DEP ER PHONE #: [phone] Exam Date: 11/06/2021 4447 FAX #: [phone] Reason: fall/head stiek/ neck pain/pain pain/hip pain/ EXAMS: CPT CODE: [id number] CT HEAD/BRAIN W/O CONT 79545 (Continued) through C6. There is acquired, osseous [...] Signed Report (CONTINUED) FAX: Nikki Perez MD [phone] [place]: St: DEP FAX: Grey Mandel DO Name: VANESSA VILLEGAS : 1935 Age/S: 86/F [address] Unit: [id number] Loc: [place] [address] Phys: Grey Mandel DO R2 Acct: [id number] Dis Date: Status: DEP ER PHONE #: [phone] Exam Date: 11/06/2021 1435 FAX #: [phone] Reason: fall/head stiek/ neck pain/pain pain/hip pain/ EXAMS: CPT CODE: [id number] CT HEAD/BRAIN W/O CONT 36005 (Continued) Correlation with prior ultrasound if available. Consider further characterization with ultrasound on nonemergent basis if not. at 1446 Reported and signed by: Oscar Smith MD CC: Nikki Perez MD; Grey Mandel DO Technologist: Sandra Patino Trnscrd Dt/Tm: 11/06/2021 (1446) [email or web address] Orig Print D/T: S: 11/06/2021 (8448 PAGE 3 Signed Report - CT C-SPINE W/O 2021-11-06 CONT 14:46:00 [facility] : 1935 Sex: F FAX: Nikki Perez MD [phone] [place]: St: [facility] FAX: Grey Mandel DO Name: VANESSA VILLEGAS [facility] : 1935 Age/S: 86/F [address] Unit: [id number] Loc: [place] [address] Phys: Grey Mandel DO R2 Acct: [id number] Dis Date: Status: DEP ER PHONE #: [phone] Exam Date: 11/06/2021 1435 FAX #: [phone] Reason: fall/head stiek/ neck pain/pain pain/hip pain/ EXAMS: CPT CODE: [id number] CT C-SPINE W/O CONT 60290 EXAM: 1. CT Head without contrast 2. [...] Signed Report (CONTINUED) FAX: Nikki Perez MD [phone] [place]: St: [facility] FAX: Grey Mandel DO Name: [place] : 1935 Age/S: 86/F [address] Unit: [id number] Loc: [place] [address] Phys: Grey Mandel DO R2 Acct: [id number] Dis Date: Status: [facility] PHONE #: [phone] Exam Date: 11/06/2021 1435 FAX #: [phone] Reason: fall/head stiek/ neck pain/pain pain/hip pain/ EXAMS: CPT CODE: [id number] CT C-SPINE W/O CONT 77938 (Continued) through C6. There is acquired, osseous [...] Signed Report (CONTINUED) FAX: Nikki Perez MD [phone] [place]: [facility] FAX: Grey Mandel DO Name: VANESSA VILLEGAS [facility] [place] : 1935 Age/S: 86/F [address] Unit: [id number] Loc: [place] [address] Phys: Grey Mandel DO R2 Acct: [id number] Dis Date: Status: DEP ER PHONE #: [phone] Exam Date: 11/06/2021 1435 FAX #: [phone] Reason: fall/head stiek/ neck pain/pain pain/hip pain/ EXAMS: CPT CODE: [id number] CT C-SPINE W/O CONT 95691 (Continued) Correlation with prior ultrasound if available. Consider further characterization with ultrasound on nonemergent basis if not. at 1446 Reported and signed by: Oscar Smith MD CC: Nikki Perez MD; Grey Mandel DO Technologist: Sandra Patino Trnscrd Dt/Tm: 11/06/2021 (1446) [email or web address] Orig Print D/T: S: 11/06/2021 (6269 PAGE 3 Signed Report - XR HIP W/PEL UNI 2020-10-14 2+V RT 12:47:00 [facility] : 1935 Sex: F FAX: El Garces MD [phone] [place]: St: [facility] FAX: Johnny Danielle [place]- [phone] Name: VANESSA VILLEGAS [facility] : 1935 Age/S: 85/F [address] Unit #: [id number] Loc: [place] [address] Phys: El Ochoa MD Acct: [id number] Dis Date: Status: REG CLI PHONE #: [phone] Exam Date: 10/14/2020 1151 FAX #: [phone] Reason: UNSP FRACTURE OF RIGHT FEMUR, INIT FOR CLOS FX EXAMS: CPT CODE: [id number] XR HIP W/PEL UNI 2+[place] [address] EXAM: - XR HIP W/PEL UNI 2+V [...] is present without acute osseous abnormality. at 2946 Reported and signed by: Nirmal Monzon MD CC: El Ochoa MD; Johnny Ruiz Technologist: MORELIA Caal Date/Time/By: 10/14/2020 (9701) : By: [email or web address] PAGE 1 Signed Report FAX: El Garces MD [phone] [place]: St: REG FAX: Johnny Danielle- [phone] Name: VANESSA VILLEGAS [facility] [place] : 1935 Age/S: 85/F [address] Unit #: [id number] Loc: [place] [address] Phys: El Ochoa MD Acct: [id number] Dis Date: Status: REG CLI PHONE #: [phone] Exam Date: 10/14/2020 1151 FAX #: [phone] Reason: UNSP FRACTURE OF RIGHT FEMUR, INIT FOR CLOS FX EXAMS: CPT CODE: [id number] XR HIP W/PEL UNI 2+V RT 14067 (Continued) Orig Print D/T: S: 10/14/2020 (6549) PAGE 2 Signed Report COMPREHENSIVE METABOLIC PANEL [...] 38-126 N code = ALKP) COMPREHENSIVE METABOLIC [id number] 07:07:00 Test Item Value Reference Range Interpretation [...] N (test code = ALKP) CBC W/AUTO [id number] 06:52:00 Test Item Value Reference Range Interpretation [...] BA#) 0.03 x10 3/uL 0.0-0.1 N HGB [id number] 12:12:00 Test Item Value Reference Range Interpretation Comments HEMOGLOBIN (test code = HGB) 9.2 g/dL 12.0-16.0 L HEMATOCRIT (test code = HCT) 28.0 % 36.0-46.0 L BASIC METABOLIC [id number] 08:05:00 Test Item Value Reference Range Interpretation [...] 8.0 mg/dL 8.4-10.2 L CA) COMPREHENSIVE METABOLIC [id number] 08:05:00 Test Item Value Reference Range Interpretation [...] N (test code = ALKP) CBC W/AUTO [id number] 07:36:00 Test Item Value Reference Range Interpretation [...] 0.01 x10 3/uL 0.0-0.1 N BASIC METABOLIC [id number] 18:24:00 Test Item Value Reference Range Interpretation [...] code = 8.6 mg/dL 8.4-10.2 N CA) [id number] 18:24:00 Test Item Value Reference Range Interpretation Comments PHOSPHOROUS (test code = PHOS) 3.5 mg/dL 2.5-4.5 N [id number] 18:24:00 Test Item Value Reference Range Interpretation Comments MAGNESIUM (test code = MAG) 1.8 mg/dL 1.6-2.3 N BASIC METABOLIC [id number] 18:15:00 Test Item Value Reference Range Interpretation [...] code = 8.6 mg/dL 8.4-10.2 N CA) [id number] 18:15:00 Test Item Value Reference Range Interpretation Comments PHOSPHOROUS (test code = PHOS) mg/dL 2.5-4.5 [id number] 18:15:00 Test Item Value Reference Range Interpretation Comments MAGNESIUM (test code = MAG) mg/dL 1.6-2.3 CBC W/AUTO [id number] 17:42:00 Test Item Value Reference Range Interpretation [...] 3/uL 0.0-0.1 N - XR PELVIS 1/2 [id number] 14:50:00 FAX: Lindsay Rocha MD [phone] [place]: [facility]: ADM FAX: Parish Ashraf [phone] FAX: Johnny Danielle [phone] Name: VANESSA VILLEGAS [facility] : 1935 Age/S: 84/F [address] Unit #: [id number] Loc: [address] [address] Phys: Parish Ashraf MD Acct: [id number] Dis Date: Status: ADM IN PHONE #: [phone] Exam Date: 08/28/2020 1400 FAX #: [phone] Reason: RIGHT HIPREPLACEMENT EXAMS: CPT CODE: [id number] XR PELVIS 1/2 VIEWS 37557 EXAM: - XR PELVIS 1/2 VIEWS INDICATI ON: RIGHT HIP REPLACEMENT Location: T 18. COMPARISON: Radiograph performed earlier the same day. TECHNIQUE: 2 views. FINDINGS: Patient is post right hip arthroplasty for fixation of the right femur neck fracture. Postoperative soft tissue swelling and gas seen. IMPRESSION: Right hip arthroplasty. El ectronically Signed by Scott Ware MD on 08/28/2020 at 1450 Reported and signed by: Soctt Ware [facility]: Lindsay Seaman MD; Parish Ashraf MD; Johnny Ruiz Technologist: Narinder Acuñayledanyell Masters Trnscrd Date/Time/By: 08/28/2020 (6293) : By: [email or web address] PAGE 1 Signed Report FAX: Lindsay Rocha MD [phone] [place]: St: [facility] FAX: Parish Ashraf [phone] FAX: Johnny Danielle [phone] Name: VANESSA VILLEGAS [facility] : 1935 Age/S: 84/F [address] Unit #: [id number] Loc: [address] [address] Phys: Parish Ashraf MD Acct: [id number] Dis Date: Status: ADMIN PHONE #: [phone] Exam Date: 08/28/2020 1400 FAX #: [phone] Reason: RIGHT HIP REPLACEMENT EXAMS: CPT CODE: [id number] XR PELVIS 1/2 VIEWS 27564 (Continued) Orig Print D/T: S: 08/28/2020 (8354) PAGE 2 Signed ReportCOVID 19 Asymptomatic IH [id number] 08:35:00 Test Item Value Reference Range Interpretation Comments COVID 19 Asymptomatic IH AG (test NEGATIVE Negative code = COVNONPUIAG) BASIC METABOLIC [id number] 06:15:00 Test Item Value Reference Range Interpretation [...] code = 8.7 mg/dL 8.4-10.2 N CA) [id number] 06:15:00 Test Item Value Reference Range Interpretation Comments PHOSPHOROUS (test code = PHOS) 3.3 mg/dL 2.5-4.5 N [id number] 06:15:00 Test Item Value Reference Range Interpretation Comments MAGNESIUM (test code = MAG) 1.8 mg/dL 1.6-2.3 N BASIC METABOLIC [id number] 06:14:00 Test Item Value Reference Range Interpretation [...] code = 8.7 mg/dL 8.4-10.2 N CA) [id number] 06:14:00 Test Item Value Reference Range Interpretation Comments PHOSPHOROUS (test code = PHOS) mg/dL 2.5-4.5 [id number] 06:14:00 Test Item Value Reference Range Interpretation Comments MAGNESIUM (test code = MAG) mg/dL 1.6-2.3 CBC W/AUTO [id number] 05:58:00 Test Item Value Reference Range Interpretation [...] - XR KNEE 1 OR 2 V [id number] 03:33:00 FAX: Petr Holley MD [place]: St: [facility] FAX: Johnny Danielle [place]- [phone] Name: VANESSA VILLEGAS [facility] :1935 Age/S: 84/F [address] Unit #: [id number] Loc: [address] [address] Phys: Petr Holley MD R1 Acct: [id number] Dis Date: Status: ADM IN PHONE #: [phone] Exam Date: 08/28/2020 0200 FAX #: [phone] Reason: fall, pain with ROM EXAMS: CPT CODE: [id number] XR KNEE 1 OR 2 VBI 17664 AFTER HOURS SERVICE ON: 08/28/2020 3:29 AM [...] Signed Report (CONTINUED) FAX: Petr Holley MD [place]: [facility]: ADM FAX: Johnny Danielle- [phone] Name: VANESSA VILLEGAS [facility] :1935 Age/S: 84/F [address] Unit #: [id number] Loc: [place] [address] Phys: Petr Holley MD R1 Acct: [id number] Dis Date: Status: ADM IN PHONE #: [phone] Exam Date: 08/28/2020 0200 FAX #: [phone] Reason: fall, pain with ROM EXAMS: CPT CODE: [id number] XR KNEE 1 [place] [address] (Continued) AFTER HOURS SERVICE ON: 08/28/2020 3:29 [...] Signed Report (CONTINUED) FAX: Petr Holley MD [place]: [facility]: ADM FAX: Johnny Danielle- [phone] Name: VANESSA VILLEGAS [facility] [place] : 1935 Age/S: 84/F [address] Unit #: [id number] Loc: [address] [place] [address] Phys: Petr Holley MD R1 Acct: [id number] Dis Date: Status: ADM IN PHONE #: [phone] Exam Date: 08/28/2020 0200 FAX #: [phone] Reason: fall, pain with ROM EXAMS: CPT CODE: [id number] XR KNEE 1 [place] [address] [place] [address] (Continued) Advanced osteoarthritic changes. No fracture. AFTER [...] Technologist: RT Yuriy (R) Trnscrd Date/Time/By: 08/28/2020 (033) : By: [email or web address] PAGE 3 Signed Report FAX: Petr Holley MD [place]: [facility]: [facility] FAX: Johnny Danielle [phone] Name: VANESSA VILLEGAS [facility] portalDOB: 1935 Age/S: 84/F [address] Unit #: [id number] Loc: [address] [place] [address] Phys: Pert Holley MD R1 Acct: [id number] Dis Date: Status: ADM IN PHONE #: [phone] Exam Date: 02/2020 0200 FAX #: [phone] Reason: fall, pain with ROM EXAMS: CPT CODE: [id number] XR KNEE 1 [place] [address] (Continued) Orig Print D/T: S: 08/28/2020 (0336) PAGE 4 Signed Report- XR HIP BI [id number] 03:33:00 FAX: Petr Holley MD R [place]: [facility]: [facility] FAX: Johnny Danielle- [phone] Name: VANESSA VILLEGAS [facility] Akash : 1935 Age/S: 84/F [address] Unit #: [id number] Loc: [address] [place] [address] Phys: Petr Holley MD R1 Acct: [id number] Dis Date: Status: ADM IN PHONE #: [phone] Exam Date: 08/28/20 0200 FAX #: [phone] Reason: fall, pain with ROM EXAMS: CPT CODE: [id number] XR HIP BI W/PELVIS 325[address] AFTER HOURS SERVICE ON: 08/28/2020 3:29 AM [...] Signed Report (CONTINUED) FAX: Petr Holley MD [place] [facility] FAX: Johnny Danielle [place]- [phone] Name: VANESSA VILLEGAS [facility] :1935 Age/S: 84/F [address] Unit #: [id number] Loc: [address] [address] Phys: Petr Holley MD R1 Acct: [id number] Dis Date: Status: ADM IN PHONE #: [phone] Exam Date: 08/28/2020 0200 FAX #: [phone] Reason: fall, pain with ROM EXAMS: CPT CODE: [id number] XR HIP BI W/PELVIS 02595 (Continued) AFTER HOURS SERVICE ON: 08/28/2020 3:29 [...] Signed Report (CONTINUED) FAX: Petr Holley MD [place]: St: ADM FAX: Johnny Danielle [place]- [phone] Name: VANESSA VILLEGAS [facility] : 1935 Age/S: 84/F [address] Unit #: [id number] Loc: [address] [address] Phys: Petr Holley MD R1 Acct: [id number] Dis Date: Status: ADM IN PHONE #: [phone] Exam Date: 08/28/2020 0200 FAX #: [phone] Reason: fall, pain with ROM EXAMS: CPT CODE: [id number] XR HIP BI W/PELVIS 85503 (Continued) Advanced osteoarthritic changes. No fracture. AFTER HOURS SERVICE ON: 08/28/2020 3:29 AM Pelvis and Bilateral Hips, 5 Views Location Code M12 History: fall, pain with ROM Findings: There is osteopenia. There is an impacted right femoral neck fracture. There is bilateral femoral acetabular joint space narrowing.Pubic symphysis and pubic rami are unremarkable. Impression: Impacted mildly displaced right femoralneck fracture. at 0333 Reported and signed by: Kishan Garcia MD CC: Petr Holley MD; Johnny Ruiz Technologist:RT Yuriy (R) Trnscrd Date/Time/By: 08/28/2020 (033) : By: [email or web address] PAGE 3 Signed Report FAX: Petr Holley MD [place]: [facility]: ADM FAX: Johnny Danielle- [phone] Name: VANESSA VILLEGAS [facility] : 1935 Age/S: 84/F [address] Unit #: [id number] Loc: [address] [address] Phys: Petr Holley MD R1 Acct: [id number] Dis Date: Status: ADM IN PHONE #: [phone] Exam Date: FAX #: [phone] Reason: fall, pain with ROM EXAMS: CPT CODE: [id number] XR HIP BI W/PELVIS 11188 (Continued) Orig Print D/T: S: 08/28/2020 (335) PAGE 4 Signed Report- XR FEMUR MIN 2 VW [id number] 03:33:00 FAX: Petr Holley MD [place]: [facility]: ADM FAX: Johnny Danielle [phone] Name: VANESSA VILLEGAS [facility] [place] :1935 Age/S: 84/F [address] Unit #: [id number] Loc: [address] [address] Phys: Petr Holley MD R1 Acct: [id number] Dis Date: Status: ADM IN PHONE #: [phone] Exam Date: 08/28/2020 0200 FAX #: [phone] Reason: fall, pain with ROM EXAMS: CPT CODE: [id number] XR FEMUR MIN [address] [place] [address] AFTER HOURS SERVICE ON: 08/28/2020 3:29 AM [...] Signed Report (CONTINUED) FAX: Petr Holley MD [place]: St: [facility] FAX: Johnny Danielle- [phone] Name: [place]ESSA [place]AS[place] : 1935 Age/S: 84/F [address] Unit #: [id number] Loc: [address] [address] Phys: Petr Holley MD R1 Acct: [id number] Dis Date: Status: ADM IN PHONE #: [phone] Exam Date: FAX #: [phone] Reason: fall, pain with ROM EXAMS: CPT CODE: [id number] XR FEMUR MIN 2 VW [id number] (Continued) AFTER HOURS SERVICE ON: 08/28/2020 3:29 [...] Signed Report (CONTINUED) FAX: Petr Holley MD [place]: [facility]: [facility] FAX: Johnny Danielle- [phone] Name: VANESSA VILLEGAS [facility] [place] : 1935 Age/S: 84/F [address] Unit #: [id number] Loc: [address] [place] [address] Phys: Petr Holley MD R1 Acct: [id number] Dis Date: Status: ADM IN PHONE #: [phone] Exam Date: 08/28/2020 0200 FAX #: [phone] Reason: fall, pain with ROM EXAMS: CPT CODE: [id number] XR FEMUR MIN [address] [place] [address] (Continued) Advanced osteoarthritic changes. No fracture. AFTER HOURS SERVICE ON: 08/28/2020 3:29 AM Pelvis and BilateralHips, 5 Views Location Code M12 History: fall, pain with ROM Findings: There is osteopenia. There isan impacted right femoral neck fracture. There is bilateral femoral acetabular joint space narrowing. Pubic symphysis and pubic rami are unremarkable. Impression: Impacted mildly displaced right femoral neck fracture. at 0333 Reported and signed by: Kishan Garcia MD CC: Petr Holley MD; Johnny Ruiz Technologist: Casandra MoonRT (R) Trnscrd Date/Time/By: 08/28/2020 (033) : By: [email or web address] PAGE 3 Signed ReportFAX: Petr Holley MD R [place]: [facility]: [facility] FAX: Johnny Danielle [phone] Name: VANESSA VILLEGAS [facility] : 1935 Age/S: 84/F [address] Unit #: [id number] Loc: [facility] [place] [address] Phys: Petr Holley MD R1 Acct: [id number] Dis Date: Status: ADM IN PHONE #: [phone] Exam Date: 08/28/2020 020 FAX #: [phone] Reason: fall, pain with ROM EXAMS: CPT CODE: [id number] XR FEMUR MIN 2 VWRT 63147 (Continued) Orig Print D/T: S: 08/28/2020 (0336) PAGE 4 Signed Report- XR FEMUR MIN 2 VW [id number] 03:33:00 FAX: Petr Holley MD R [place]: [facility]: [facility] FAX: Johnny Danielle [place]- [phone] Name: VANESSA VILLEGAS [facility] :1935 Age/S: 84/F [address] Unit #: [id number] Loc: [address] [address] Phys: Petr Holley MD R1 Acct: [id number] Dis Date: Status: ADM IN PHONE #: [phone] Exam Date: 08/28/2020 0200 FAX #: [phone] Reason: fall, pain with ROM EXAMS: CPT CODE: [id number] XR FEMUR MIN [address] [place] [address] AFTER HOURS SERVICE ON: 08/28/2020 3:29 AM [...] head is intact. Impression: Mildly displaced impacted rightfemoral neck fracture. PAGE 1 Signed Report (CONTINUED) FAX: Petr Holley MD [place]: [facility]: [facility] FAX: Johnny Danielle [place]- [phone] Name: VANESSA VILLEGAS [facility] : 1935 Age/S: 84/F [address] Unit #: [id number] Loc: [address] [address] Phys: Petr Holley MD R1 Acct: [id number] Dis Date: Status: ADM IN PHONE #: [phone] Exam Date: 08/28/2020 0200 FAX #: [phone] Reason: fall, pain with ROM EXAMS: CPT CODE: [id number] XR FEMUR MIN 2 VWLT 439[address] (Continued) AFTER HOURS SERVICE ON: 08/28/2020 3:29 AM Right Knee, 3 Views Location Code [id number]: fall, pain with ROM Findings: There is [...] Signed Report (CONTINUED) FAX: Petr Holley MD [place]: St: [facility] FAX: Johnny Danielle [place]-[phone] Name: VANESSA VILLEGAS [facility] : 1935 Age/S: 84/F [address] Unit #: [id number] Loc: [address] [address] Phys: Petr Holley MD R1 Acct: [id number] Dis Date: Status: ADM IN PHONE #: [phone] Exam Date: 08/28/2020 0200 FAX #: [phone] Reason: fall, pain with ROM EXAMS: CPT CODE: [id number] XR FEMUR MIN 2 [place] [address] (Continued) Advanced osteoarthritic changes. No fracture. AFTER [...] 3 Signed Report FAX: Petr Holley MD [place]: St: ADM FAX: Johnny Danielle- [phone] -------- Name: VANESSA VILLEGAS [facility] : 1935 Age/S: 84/F [address] Unit #: [id number] Loc: [address] [address] Phys: Petr Holley MD R1 Acct: [id number] Dis Date: Status: ADM IN PHONE #: [phone] Exam Date: 08/28/2020 0200 FAX #: [phone] Reason: fall, pain with ROM EXAMS: CPT CODE: [id number] XR [place]EMURMIN [address] [place] [address] (Continued) Orig Print D/T: S: 08/28/2020 (0336) [...] AVG 7.0 5 3X AVG 23.39 3X AV G 11.04~~~~~~~~~~ ~~~~~ ~~~~~~~~~~~~~~~ ~~~~~ ~~~~~~~~~~~~~~~ ~~~~~ ~~~~~National Cholesterol Education (NCEP ) Guidelines:~~~~ ~~~~~ ~~~~~~~~~~~~~~~ ~~~~~ ~~~~~~~~~~~~~~~ ~~~~~ ~~~~~~~~~~~ H DL Cholesterol<4 0mg/d L: HDL Choleste rol (Major risk fac tor for CHD)>60mg/d L: HDL Cholesterol (Negative risk factor for CHD)40-59mg/dL: Borderline Risk LDL Cholesterol<1 00mg/ dL: Desirable L DL-C xjafpzervabwk24 0-159 mg/dL: Borderli ne High Risk LDL-C gnwozltinqcbb14 0-189 mg/dL: High ris k LDL-C concentra [...] AVG 11.04~~~~~~~~~~ ~~~~~~~ ~~~~~~~~~~~~~~~ ~~~~~~~ ~~~~~~~~~~~~~~~ ~~~~~~[facility] gene Education (NCEP ) Guidelines:~~~~ ~~~~~~~ ~~~~~~~~~~~~~~~ ~~~~~~~ ~~~~~~~~~~~~~~~ ~~~~~~~ ~~~~~ HDL Cholesterol<4 0mg/dL: HDL Cholesterol (Major risk factor for CHD)>60mg/dL: H DL Cholesterol (Ne gative risk factor for CHD)40-59mg/dL: Borderline Risk LDL Cholesterol<1 00mg/dL : Desirable LDL -C rcpxuxjaroovc11 0-159mg /dL: Borderline High Risk LDL-C xbosqkmoujdif63 0-189mg /dL: High risk LDL-C concentration H DL-LDL Cholesterol is affected by a n umber of factors such as smoking, age an d sex.~~~~~~~~~~~ ~~~~~~~ ~~~~~~~~~~~~~~~ ~~~~~~~ ~~~~~~~~~~~~~~~ ~~~~~ - CT HEAD/BRAIN W/O [id number] 00:44:00 FAX: Johnny Danielle- [phone] [place]: St: REG Name: VANESSA VILLEGAS : 1935 Age/S: 84/F [address] Unit: [id number] Loc: [place] [address] Phys: Kathie Meza MD Acct: [id number] Dis Date: Status: REG ER PHONE #: [phone] Exam Date: 08/28/2020 0013 FAX #: [phone]: fall EXAMS: CPT CODE: [id number] CT HEAD/BRAIN W/O CONT 12414 Location: H3 CT head, conductedon 08/28/20 COMPARISON EXAMS: None of the brain TECHNIQUE: CT examination of the brain was performedwithout contrast on a helical scanner. Scanning conducted from skull base through the vertex in the axial plane acquiring contiguous 5mm slice thickness . The examination was performed on updated helical CT scanner utilizing low-dose radiation technique. Automatic exposure control timing was utilizedto minimize radiation dose. CLINICAL HISTORY: Trauma, headache. Patient presenting to the emergencyroom. Patient status post fall FINDINGS: No positive mass-effect, midline shift, extra-axial fluid collections or intracranial hemorrhages seen. In particular, no subarachnoid hemorrhage is identified.No intra or extra-axial masses. No skull fracture is seen. The globes are intact. No acute territorial infarction is seen. No cerebral edema is seen. No significant sinus disease is seen. No pneumocephalus is seen or definite acute traumatic injury. There is atrophy age appropriate with significant moderate degree at least of relatively chronic- appearing microvascular changes. IMPRESSION: No acute finding at 0044 Reportedand signed by: Aleksandra Sidhu MD CC: Johnny Ruiz Technologist: Janelle Krause; MICHELLE MORSE Trnscrd Dt/Tm: 08/28/2020 (0044) [email or web address] Orig Print D/T: S: 08/28/2020 (0047 PAGE 1Signed Report- CT C-SPINE W/O CONT 2020-08-28 00:41:00 FAX: Elvira EspinoSaraJohnny avendaño Jennifer [place]- [phone] [place]: St: REG Name: VANESSA VILLEGAS [facility] [place] : 1935 Age/S: 84/F [address] Unit: [id number] Loc: [place] [address] Phys: Kathie Meza MD Acct: [id number] Dis Date: Status: REG ER PHONE #: [phone] Exam Date: 08/28/2020 001 FAX #: [phone] Reason: fall EXAMS: CPT CODE: [id number] CT C-SPINE W/O CONT 31547 Location: CT cervical spine, conducted on 08/28/20 TECHNIQUE: CT examination of the cervical spine without contrast was performed on a helical scanner. 2-D imaging was acquired using MPR software on CT workstation by the system technologist. Scanning conducted in axial plane from skull base down to upper thoracic spine with acquisition of 2.5 mm contiguous axial slice thickness acquired . The examination was performed with low radiationdose technique. Automatic exposure control was utilized to reduce radiation dose. Examination conducted on updated helical CT scanner CLINICAL HISTORY: Neck pain. Trauma , patient presenting to the emergency room FINDINGS: There is no acute fracture or subluxation. There is postoperative change with decompressive procedure identified from C3-C4 are downwards to C6-C7. Partial fusion of this spaces atC3-C4 downwards to at least C5-C6 and osseous fusion masses identified involving cervical facet joints. Cervical spondylosis is seen with multilevel foraminal narrowing but without compromise of the canal centrally. Assessment of the skull base unremarkable. Prevertebral soft tissues unremarkable. Theatlano axial joint is unremarkable . No pneumothorax or rib fracture is seen IMPRESSION: No acute fracture or traumatic malalignment of the spinal lines Postop changes Multilevel foraminal narrowing due to spondylosis Cervical spondylosis Electronically Signed by Aleksandra Sidhu MD on08/28/2020 at 0041 Reported and signed by: Aleksandra Sidhu MD PAGE 1 Signed Report (CONTINUED) FAX: Johnny Danielle- [phone] [place]: St: REG Name: VANESSA VILLEGAS [facility] [place] : 1935 Age/S: 84/F [address] Unit: [id number] Loc: [place] [address] Phys: Kathie Meza MD Acct: [id number] Dis Date: Status: REG ER PHONE #: [phone] Exam Date: 08/28/2020 0013 FAX #: [phone] Reason: fall EXAMS: CPT CODE: [id number] CT C-SPINE W/O CONT 63723 (Continued) CC: Jhonny Ruiz Technologist: Janelle MORSE Trnscrd Dt/Tm: 08/28/2020 (0041) [email or web address] Orig Print D/T: S: 08/28/2020 (0044 PAGE 2 Signed ReportCOMPREHENSIVE METABOLIC [id number] 23:50:00 Test Item Value Reference Range Interpretation [...] U/L 38-126 N (test code = ALKP) [id number] 23:50:00 Test Item Value Reference Range Interpretation Comments ALCOHOL (test code = < 10 mg/dL <10 ~~~~~~ ~~~~~~~~~~~~~~~ ALC) ~~~~~~~~~~~~~~~ ~~~~~~~ ~~~~~~~ RESULTS ARE TO BE USED FOR MED ICAL PURPOSES ONLY.F OR LEGAL PURPOSES THE SPECIMEN MUST B E COLLECTED BY A CHAINOF CUSTODY. LEGAL TESTING IS NOT PERFORME D BY THIS FACILITY. ~~~~~~~~~~~~~~~ ~~~~~~~ ~~~~~~~~~~~~~~~ ~~~~~~~ ~~~~~~ PROTHROMBIN [id number] 23:43:00 Test Item Value Reference Range Interpretation [...] from: Tissue he art valves 2.0 - 3. 0 Acute myocardia l infarction (to present systemic emboli sm)* 2.0 - 3.0 Valvu lar heart disease 2 .0 - 3.0 Atrial fibrillation 2 .0 - 3.03. Mechanica l prosthetic valv es (high risk) 2.5 - 3.5 * If oral anticoagulant t herapy is elected to preventrecurren t myocardial infa rction, an INR of 2.5-3 .5 isrecommended, consistent with Food and Drug Administrationr ecommen dations. THROMBOPLASTIN TIME [id number] 23:43:00 Test Item Value Reference Range Interpretation Comments THROMBOPLASTIN TIME 18.9 SECONDS 23.4-37.0 L Therape utic Range PARTIAL (test code = for Hep eden PTT) EFFECTIVE Heparin IU/mL a PTT Seconds0.3 64.3 0.7 88.8 - XR CHEST 1 [id number] 23:34:00 FAX: Johnny Danielle [place]- [phone] [place]: St: REG Name: [place]SA [place] : 1935 Age/S: 84/F [address] Unit #: [id number] Loc: [place] [address] Phys: Kathie Meza MD Acct: [id number] Dis Date: Status: REG ER PHONE #: [phone] Exam Date: 08/27/2020 2301 FAX #: [phone]: fall EXAMS: CPT CODE: [id number] XR CHEST 1 V 96129 AFTER HOURS SERVICE ON: 08/27/2020 11:34 PM AP Portable Chest Location Code M12 HISTORY: fall FINDINGS: There are extensive coarse chronic appearing bilateral interstitial markings. There are no pleural effusions. There is no pneumothorax. Cardiac silhouette and mediastinum appear within normal limits. IMPRESSION: No active pulmonary findings. at 4731 Reported and signed by: Kishan Garcia MD CC: Johnny Ruiz Technologist: Sarah Sunshine Trnsdrd Date/Time/By: 08/27/2020 (7064) : By: [email or web address] PAGE 1 Signed Report FAX: Johnny Danielle- [phone]: CARMELA St: REG -- Name: [place] : 1935 Age/S: 84/F [address] Unit #: [id number] Loc: [place] [address] Phys: Kathie Meza MD Acct: [id number] Dis Date: Status: REG ER PHONE #:[phone] Exam Date: 08/27/2020 230 FAX #: [phone] Reason: fall EXAMS: CPT CODE: [id number] XR CHEST 1 V 85659 (Continued) Orig Print D/T: S: 08/27/2020 (3932) PAGE 2 Signed Report- XR HIP W/PEL UNI 2+V [id number] 23:24:00 FAX: Johnny Danielle- [phone] [place]: St: PRE Name: VANESSA VILLEGAS [facility] : 1935 Age/S: 84/F [address] Unit #: [id number] Loc: [place] [address] Phys: Kathie Meza MD Acct: [id number] Dis Date: Status: PRE ER PHONE #: [phone] Exam Date: 08/27/20202300 FAX #: [phone] Reason: fall EXAMS: CPT CODE: [id number] XR HIP W/PEL UNI 2+[place] [address] AFTER HOURS SERVICE ON: 08/27/2020 11:23 PM Right Hip, 3 Views Location Code M12 History: fall Findings: There is an impacted right femoral neck fracture with approximately 1 severe displacement. There is osteopenia. There is narrowing of both femoral acetabular joint spaces. Visualized pubic rami are intact. Impression: Mildly displaced impacted right femoral neck fracture. at 2914 Reported and signed by: Kishan Garcia MD CC: Johnny Ruiz Techno logist: Sarah Sunshine Trnscrd Date/Time/By: 08/27/2020 (2324) : By: [email or web address] PAGE 1 Signed ReportFAX: Johnny Danielle- [phone] [place]: St: PRE Name: VANESSA VILLEGAS : 1935 Age/S: 84/F [address] Unit #: [id number] Loc: [place] [address] Phys: Kathie Meza MD Acct: [id number] Dis Date: Status: PRE ER PHONE #: [phone] Exam Date: 08/27/20202300 FAX #: [phone] Reason: fall EXAMS: CPT CODE: [id number] XR HIP W/PEL UNI 2+[place] [address] (Continued) Orig Print D/T: S:08/27/2020 (0564) PAGE 2 Signed ReportCBC W/AUTO [id number] 23:23:00 Test Item Value Reference Range Interpretation [...]
[2023-02-10] MEDS ORDERED: ACETAMINOPHEN 325 MG TABLET ONE (05:33)
[2023-02-10 09:10] LABS: Hematocrit 30.8 % (36.0-45.0); Lymphocytes % 13.5 % (15.3-44.8); MCV 93.7 fL (80-100); MPV 6.4 fL (7.6-11.3); RBC Red Blood Cell Count 3.29 M/uL (3.86-4.86)
[2023-02-10 09:28] LABS: Potassium 4.1 mEq/L (3.5-5.1); Troponin High Sensitivity 9.8 pg/mL (<58.9)
--- NOTE | 2023-02-10 10:21 | ER ---
Nurse's Notes [facility] Name: Rachna Mccullough Age: 87 yrs Sex: Female : 1935 Arrival Date: 02/10/2023 Time: 04:18 Bed 2 Private MD: Diagnosis: SARS-associated coronavirus as the cause of diseases classified elsewhere;Shortness of breath;Nondisplaced left distal radius fracture Presentation: 02/10 04:19 Chief complaint: EMS states: EMS stated [facility] C/O patient having pf1 SOB,onset DIGITAL OPERATIONS ANALYST. EMS stated patient was diagnosis with Covid-19,unknown on what day. Patient C/O left wrist pain with palpation. Patient has a yellow bruising with swelling noted to left wrist. Coronavirus screen:. Coronavirus screen: Client denies travel out of the [place] in the last 14 days. Client presents with at least one sign or symptom that may indicate coronavirus-19. EMS stated patient was diagnosed with Covid-19 prior to arrival, unknown what day. Ebola Screen: Patient negative for fever greater than or equal to 101.5 degrees Fahrenheit, and additional compatible Ebola Virus Disease symptoms. Initial Sepsis Screen: Does the patient meet any 2 criteria? No. Patient's initial sepsis screen is negative. Does the patient have a suspected source of infection? No. Patient's initial sepsis screen is negative. Risk Assessment: Do you want to hurt yourself or someone else? Unable to obtain. Onset of symptoms is unknown. 04:19 Method Of Arrival: EMS: [facility] pf1 04:19 Acuity: CARLITOS 3 pf1 Triage Assessment: 04:28 General: see nurse assessment. pf1 Historical: - Allergies: 04:27 No Known Allergies; pf1 - PMHx: 04:27 Chronic obstructive lung disease; Dementia; Gastroesophageal reflux disease; pf1 Hypercholesterolemia; Hypertensive disorder; Hypothyroidism; - Immunization history:: Adult Immunizations unknown, unknown Last tetanus immunization: unknown. - Social history:: Smoking status: unknown. Screenin:31 [facility] ED Fall Risk Assessment (Adult) History of falling in the last 3 months, pf1 including since admission No falls in past 3 months (0 pts) Confusion or Disorientation Yes (5 pts) Intoxicated or Sedated No (0 pts) Impaired Gait Yes (1 pt) Mobility Assist Device Used Yes (1 pt) Altered Elimination Yes (1 pt) Score/Fall Risk Level 3 or more points = High Risk Oriented to surroundings, Maintained a safe environment, Educated pt \T\ family on fall prevention, incl call for assistance when getting out of bed, Assessed \T\ reinforced patient's understanding of fall precautions, Provided non-skid footwear, Hourly rounding (assess needs \T\ fall precautionary measures) done, Used ambulatory aids as needed (educated on \T\ assisted with), Used gait belt as appropriate Implemented a Fall Risk Plan of Care, Apply high fall risk patient identification: yellow non skid footwear/ fall signage, Remained w/in arm's length of patient and in sight while toileting, Offered frequent toileting (1:1 observation), Remained with patient while ambulating, Utilized family, sitter, or virtual materials engineer as indicated. Abuse screen: Denies threats or abuse. Nutritional screening: No deficits noted. Tuberculosis screening: No symptoms or risk factors identified. Assessment: 04:28 General: Appears in no apparent distress. comfortable, well groomed, well developed, pf1 Behavior is calm, cooperative, appropriate for age, quiet. Pain: Complains of pain in left wrist Pain Unable to use pain scale. Patient is disoriented. Neuro: Level of Consciousness is awake, alert, obeys commands, Oriented to person. Cardiovascular: No deficits noted. Capillary refill < 3 seconds Patient's skin is warm and dry. Respiratory: Airway is patent Trachea midline Respiratory effort is even, unlabored, Respiratory pattern is regular, symmetrical, Breath sounds are clear bilaterally. Parent/caregiver reports the patient having Covid-19 positive per [facility] stated per [facility]. GI: No deficits noted. No signs and/or symptoms were reported involving the gastrointestinal system. : No deficits noted. No signs and/or symptoms were reported regarding the genitourinary system. EENT: No deficits noted. No signs and/or symptoms were reported regarding the EENT system. Derm: abrasion noted to left elbow. Musculoskeletal: Capillary refill < 3 seconds, Swelling present in left wrist yellow bruising to left wrist. 05:30 Reassessment: Patient appears in no apparent distress at this time. Patient and/or pf1 family updated on plan of care and expected duration. Pain level reassessed. Patient states symptoms have not improved. Patient has a cough at this time. 06:30 Reassessment: Patient appears in no apparent distress at this time. No changes from pf1 previously documented assessment. Patient and/or family updated on plan of care and expected duration. Pain level reassessed. Patient is alert, oriented x 3, equal unlabored respirations, skin warm/dry/pink. Patient states feeling better. Patient states symptoms have improved. . 07:14 Reassessment: Patient appears in no apparent distress at this time. hb 07:27 Reassessment: awaiting imaging results. ss 08:17 Reassessment: Pt resting with eyes closed in no apparent distress. hb 10:00 Reassessment: Patient appears in no apparent distress at this time. No changes from hb previously documented assessment. Vital Signs: 04:19 BP 109 / 50; Pulse 90; Resp 20; Temp 100.4; Pulse Ox 97% on R/A; Weight 63.5 kg; pf1 05:15 BP 127 / 58; Pulse 84; Resp 6; Pulse Ox 97% on R/A; pf1 05:15 BP 104 / 53; Pulse 77; Resp 16; Pulse Ox 97% on R/A; pf1 06:30 BP 110 / 62; Pulse 71; Resp 16; Pulse Ox 96% on R/A; pf1 07:14 BP 116 / 50; Pulse 71; Resp 23; Pulse Ox 96% on R/A; hb 08:17 BP 122 / 59; Pulse 96; Resp 18; Pulse Ox 95% on R/A; hb 08:48 Temp 98.5(O); ss 09:35 BP 116 / 49; Pulse 66; Resp 18; Pulse Ox 96% on R/A; Pain 0/10; ss 10:19 BP 132 / 70; Pulse 73; Resp 20; Pulse Ox 97% ; hb 09:35 Pain Scale: Adult ss ED Course: 04:18 Patient arrived in ED. ms3 04:19 Johnny Melchor DO is Attending Physician. ms3 04:19 Jami arce, ALEYDA is Primary Nurse. pf1 04:27 Triage completed. pf1 04:28 Arm band placed on. pf1 04:32 No provider procedures requiring assistance completed. Maintain EMS IV. Dressing pf1 intact. Good blood return noted. Site clean \T\ dry. Gauge \T\ site: 20 gauge to RFA. 05:04 CXR XRAY In Process Unspecified. EDMS 05:04 Wrist Left (3 View) XRAY In Process Unspecified. EDMS 07:11 Attending Physician role handed off by Johnny Melchor DO ms3 07:11 Raimundo Small MD is Attending Physician. ms3 08:56 Orthoglass splint: Sugar tong splint applied on left arm. Sling applied to left arm. ss Administered Medications: 05:42 Drug: Acetaminophen PO 650 mg Route: PO; pf1 06:16 Follow up: Response: No adverse reaction; Marked relief of symptoms; Pain is decreased pf1 Outcome: 10:21 Discharge ordered by . kdr Signatures: Dispatcher [employer] EDCA Raimundo Small MD MD [facility] Kathrin Aguirre RN RN Lisa Hsieh RN RN Johnny Melchor DO DO ms3 Jami arce RN RN pf1 Corrections: (The following items were deleted from the chart) 06:14 04:28 Respiratory: Airway is patent Trachea midline Respiratory effort is even, pf1 unlabored, Respiratory pattern is regular, symmetrical, Breath sounds are clear bilaterally. Parent/caregiver reports the patient having Covid-19 positive per [facility] stated per [facility] pf1 06:47 06:30 Reassessment: Patient appears in no apparent distress at this time. No changes pf1 from previously documented assessment. Patient and/or family updated on plan of care and expected duration. Pain level reassessed. Patient is alert, oriented x 3, equal unlabored respirations, skin warm/dry/pink. Patient states feeling better. Patient states symptoms have improved. patient pending US results.. pf1
--- NOTE | 2023-02-10 10:22 | EDPHYS ---
Physician Documentation [facility] Name: Rachna Mccullough Age: 87 yrs Sex: Female : 1935 Arrival Date: 02/10/2023 Time: 04:18 Bed 2 Private MD: ED Physician Raimundo Small HPI: 02/10 05:14 This 87 yrs old Female presents to ER via EMS with complaints of COVID positive. ms3 05:14 87-year-old female with past medical history of COPD, dementia, GERD presents via [address] [facility] after they were called for shortness of breath. On their arrival patient's oxygen saturation 97% on room air. Nursing staff noted to EMS patient is COVID-positive. EMS noted patient's left wrist to be swollen and tender to touch.. Historical: - Allergies: 04:27 No Known Allergies; pf1 - PMHx: 04:27 Chronic obstructive lung disease; Dementia; Gastroesophageal reflux disease; pf1 Hypercholesterolemia; Hypertensive disorder; Hypothyroidism; - Immunization history:: Adult Immunizations unknown, unknown Last tetanus immunization: unknown. - Social history:: Smoking status: unknown. ROS: 05:14 Unable to obtain ROS due to baseline dementia. ms3 Exam: 05:14 Constitutional: This is a well developed, well nourished patient who is awake, alert, ms3 and in no acute distress. Head/Face: Normocephalic, atraumatic. Neck: Trachea midline, no cervical lymphadenopathy. Supple, full range of motion without nuchal rigidity, or vertebral point tenderness. No Meningismus. Chest/axilla: Normal chest wall appearance and motion. Nontender with no deformity. Cardiovascular: Regular rate and rhythm with a normal S1 and S2. No gallops, murmurs, or rubs. Normal PMI, no JVD. No pulse deficits. Respiratory: Lungs have equal breath sounds bilaterally, clear to auscultation and percussion. No rales, rhonchi or wheezes noted. No increased work of breathing, no retractions or nasal flaring. Abdomen/GI: Soft, non-tender, with normal bowel sounds. No distension or tympany. No guarding or rebound. No evidence of tenderness throughout. 05:14 Musculoskeletal/extremity: Extremities: noted in the Left wrist: contusion, pain, swelling, tenderness. 05:14 Skin: Vital Signs: 04:19 BP 109 / 50; Pulse 90; Resp 20; Temp 100.4; Pulse Ox 97% on R/A; Weight 63.5 kg; pf1 05:15 BP 127 / 58; Pulse 84; Resp 6; Pulse Ox 97% on R/A; pf1 05:15 BP 104 / 53; Pulse 77; Resp 16; Pulse Ox 97% on R/A; pf1 06:30 BP 110 / 62; Pulse 71; Resp 16; Pulse Ox 96% on R/A; pf1 07:14 BP 116 / 50; Pulse 71; Resp 23; Pulse Ox 96% on R/A; hb 08:17 BP 122 / 59; Pulse 96; Resp 18; Pulse Ox 95% on R/A; hb 08:48 Temp 98.5(O); ss 09:35 BP 116 / 49; Pulse 66; Resp 18; Pulse Ox 96% on R/A; Pain 0/10; ss 10:19 BP 132 / 70; Pulse 73; Resp 20; Pulse Ox 97% ; hb 09:35 Pain Scale: Adult ss MDM: 04:19 Patient medically screened. ms3 05:14 Differential Diagnosis Wrist fracture versus COVID versus pneumonia. ms3 06:16 Independent interpretation of the following test(s) in the Emergency Department X-Ray: ms3 My interpretation is Left wrist x-ray images reviewed by me: Possible radius fracture.. 07:10 Transition of care: After a detail discussion of the patient's case, care is ms3 transferred to Raimundo Small MD. 02/10 04:19 Order name: CXR XRAY ms3 02/10 04:19 Order name: Wrist Left (3 View) XRAY ms3 02/10 08:48 Order name: EKG; Complete Time: 08:49 kdr 02/10 08:39 Order name: Sugar Tong Forearm Splint; Complete Time: 08:57 kdr 02/10 08:48 Order name: O2 Sat Monitoring; Complete Time: 08:57 kdr 02/10 08:48 Order name: O2 Per Protocol; Complete Time: 08:57 kdr 02/10 08:48 Order name: IV Saline Lock; Complete Time: 08:57 kdr 02/10 08:48 Order name: Cardiac monitoring; Complete Time: 08:57 kdr 02/10 08:48 Order name: Labs collected and sent; Complete Time: 09:08 kdr 02/10 08:48 Order name: EKG - Nurse/Tech; Complete Time: 09: kdr 02/10 08:48 Order name: Basic Metabolic Panel; Complete Time: : kdr 02/10 08:48 Order name: CBC with Diff; Complete Time: : kdr 02/10 08:48 Order name: NT PRO-BNP; Complete Time: : kdr 02/10 08:48 Order name: Troponin HS; Complete Time: : kdr Administered Medications: 05:42 Drug: Acetaminophen PO 650 mg Route: PO; pf1 06:16 Follow up: Response: No adverse reaction; Marked relief of symptoms; Pain is decreased pf1 Disposition Summary: 02/10/23 10:21 Discharge Ordered Location: Home kdr Problem: new kdr Symptoms: have improved kdr Condition: Stable kdr Diagnosis - SARS-associated coronavirus as the cause of diseases classified elsewhere kdr - Shortness of breath kdr - Nondisplaced left distal radius fracture kdr Followup: kdr - With: Private Physician - When: 2 - 3 days - Reason: If symptoms return, Further diagnostic work-up, Recheck today's complaints, Continuance of care, Re-evaluation by your physician Discharge Instructions: - Discharge Summary Sheet pf1 Forms: - SBAR form pf1 - Medication Reconciliation Form kdr - Thank You Letter kdr - Antibiotic Education kdr - Prescription Opioid Use kdr Signatures: Dispatcher [employer] Raimundo Salazar MD MD kdr Johnny Melchor DO DO ms3 Jami arce RN RN pf1
[2023-02-10 12:54] LABS: Blood Morphology Comment NOT SEEN (NOT SEEN); Platelet Estimate ADEQ
[2023-02-10 14:25] VITALS: TEMP 98.5
[2023-02-10 14:27] VITALS: BP 132/70; O2SAT 97
--- NOTE | 2023-02-11 10:53 | RAD REPORT ---
EXAM DESCRIPTION: RAD - Wrist Left 3 View - 02/10/2023 5:02 am COMPARISON: None. CLINICAL HISTORY: [facility] MAIN Pain;Swelling FINDINGS: 3 views of the left wrist demonstrate a cortical irregularity of the distal radius. There are degenerative changes of the distal interphalangeal joints and first carpometacarpal joint. Soft tissues are unremarkable. IMPRESSION: Osteoarthritis. Nondisplaced distal radial fracture. Electronically signed by: Quan Main MD 02/10/2023 7:03 AM CDT Due to temporary technical issues with the PACS/Fluency reporting system, reports are being signed by the in house radiologists without review as a courtesy to insure prompt reporting. The interpreting radiologist is fully responsible for the content of the report.
--- NOTE | 2023-02-11 12:24 | RAD REPORT ---
EXAM DESCRIPTION: RAD - Chest Single View - 02/10/2023 5:02 am TECHNIQUE: Portable AP upright chest x-ray. Comparison: None. CLINICAL HISTORY: COUGH. FINDINGS: Heart size: Normal. Lungs: Diffuse mild increased reticular pulmonary opacities likely from chronic lung disease but ther e are no previous exams to determine the baseline. Acute interstitial edema not excluded in this sett ing. No airspace consolidation. Air trapping is seen. Pleura: No pleural effusion. No pneumothorax. Mediastinum and daisy: Unremarkable. Musculoskeletal: Posttraumatic deformity of the left humeral neck. Thoracic spondylosis. Support tubings: None. IMPRESSION: 1. Findings consistent with COPD and chronic interstitial lung disease. Electronically signed by: Herber Rojas MD 02/10/2023 7:13 AM CDT Due to temporary technical issues with the PACS/Fluency reporting system, reports are being signed by the in house radiologists without review as a courtesy to insure prompt reporting. The interpreting radiologist is fully responsible for the content of the report.
--- NOTE | 2023-02-11 17:37 | EKG ---
Test Date: 2023-02-10 Test Time: 09:04:11 Scientific Associate: JORDAN MEASUREMENT RESULTS: Intervals: Rate: 66 SC: 162 QRSD: 68 QT: 432 QTc: 452 [place]: P: 8 SC: 162 QRS: 8 T: 15 INTERPRETIVE STATEMENTS: Normal sinus rhythm Normal ECG No previous ECG available for comparison Electronically Signed On 02-11-23 17:35:33 CDT by uLis Nye
== END 2023-02-10 11:25 | disposition home or self-care (01) ==
LOC: ER 04:13
DX: U07.1 COVID-19 (principal); R06.02 Shortness of breath; S52.502A Unspecified fracture of the lower end of left radius, initial encounter for closed fracture; J44.9 Chronic obstructive pulmonary disease, unspecified; F03.90 Unspecified dementia, unspecified severity, without behavioral disturbance, psychotic disturbance, mood disturbance, and anxiety; K21.9 Gastro-esophageal reflux disease without esophagitis; E78.00 Pure hypercholesterolemia, unspecified; I10 Essential (primary) hypertension; E03.9 Hypothyroidism, unspecified
CPT/HCPCS: 36415; 71045; 80048; 83880; 84484; 85025; 93005; 99284